=== PATIENT | female | born 1950 | race Caucasian/White ===

== ENCOUNTER → 2017-11-16 08:24 | Outpatient (CLI) | payer BC, SELFPAY ==
[2017-11-16 10:25] LABS: AST(SGOT) 19 U/L (15-37); Alanine Aminotransfer ALT/SGPT 30 U/L (13-56); Albumin, Serum 3.9 g/dL (3.2-5.0); Alkaline Phosphatase 42 U/L (45-117); Anion Gap 10 (5-15); BUN 16 mg/dL (7-18); BUN/Creat Ratio 19.2 RATIO (10-20); Bilirubin, Direct 0.15 mg/dL (0.00-0.30); Calcium,Total 9.4 mg/dL (8.5-10.1); Chloride 108 mmol/L (98-107); Cholesterol 158 mg/dL (200); Creatinine, Serum 0.83 mg/dL (0.55-1.02); EST Glomerular Filtration Rate 72 mL/min (>60); Est Glom Filt Rate - Afr Amer 87 mL/min (>60); Globulin 3.3 g/dL (2.2-4.2); Glucose 101 mg/dL (74-106); High Density Lipoprotein 54 mg/dL; Protein, Total 7.2 g/dL (6.4-8.2); Sodium Level 144 mmol/L (136-145); Triglycerides 123 mg/dL; Very Low Density Lipoprotein 25 mg/dL (5-40)
[2017-11-16 10:27] LABS: Hemoglobin A1c 5.5 % (4.2-6.3)
== END ==
PROVIDERS: Family Provider Family Medicine; PCP Family Medicine; Visit Provider Family Medicine
DX: I10 Essential (primary) hypertension (principal); E78.00 Pure hypercholesterolemia, unspecified; R73.03 Prediabetes
CPT/HCPCS: 36415; 80048; 80061; 80076; 83036

== ENCOUNTER → 2018-01-12 11:37 | Outpatient (CLI) | payer BC, SELFPAY ==
--- NOTE | 2018-01-12 11:41 | RAD_ITS ---
STUDY: X-RAY - RIGHT SHOULDER REASON FOR EXAM: Female, 67 years old. Pain TECHNIQUE: 4 view(s) of the shoulder. COMPARISON: None. FINDINGS: Normal glenohumeral articulation. Normal acromioclavicular joint. Normal acromion. Normal humeral head and visualized proximal humerus. The soft tissue structures are unremarkable. Normal visualized pulmonary apex. RAD/Shoulder min 2 Views IMPRESSION: Normal x-ray examination of the shoulder. Electronically Signed: Guillermo Martinez DO at 9:39 EDT Tel [phone], Service support ,
== END ==
PROVIDERS: Family Provider Family Medicine; PCP Family Medicine; Referring Provider Family Medicine; Visit Provider Family Medicine
DX: M25.511 Pain in right shoulder (principal)
CPT/HCPCS: 73030

== ENCOUNTER 2018-02-03 10:07 | Emergency (ER) | payer BC, SELFPAY ==
[2018-02-03 10:08] VITALS: BP 128/76; PULSE 65; RESP 18; TEMP 36.4; O2SAT 98; BMI 28.1
--- NOTE | 2018-02-03 10:18 | CT_ITS ---
STUDY: CTA CHEST REASON FOR EXAM: Female, 67 years old. Chest pain RADIATION DOSAGE (If Supplied By Facility): CTDIvol = ( 12.6 ) mGy, DLP = ( 502.07 ) mGycm TECHNIQUE: The examination was performed with the intravenous administration of 75 ml of Isovue 370 contrast material. Post-processing of the angiographic images was performed, with multiplanar reformation and 3D reconstruction. Individualized dose optimization techniques were used for this CT. COMPARISON: None. FINDINGS: There are segmental and subsegmental pulmonary emboli in the left lower lobe and subsegmental pulmonary emboli in the right lower lobe. There are no additional pulmonary emboli. There is no evidence of thoracic aortic aneurysm or dissection. The heart and pericardium are within normal limits. There is wedge shaped groundglass opacity in the left lower lobe in the distribution of the pulmonary emboli. This likely represents a developing infarct. The lungs are otherwise clear. There is no pneumothorax. Images through the upper abdomen demonstrate no significant abnormality. There is an IVC filter noted which is not fully visualized on this exam. There are no destructive osseous lesions. CT/CTA Chest W/WO Contrast IMPRESSION: Segmental and subsegmental pulmonary emboli in the left lower lobe and subsegmental pulmonary emboli in the right lower lobe. Wedge shaped groundglass opacity in the left lower lobe in the distribution of the pulmonary emboli. This likely represents a developing infarct. IVC filter noted which is not fully visualized on this exam. N.B. : The above information has been verbally conveyed by Ross Scott to Dr. Ariella MD, on 02/03/2018 11:47:01 (ET). Electronically Signed: Ross Scott, at 11:44 EDT Tel , Service support ,
[2018-02-03 10:48] LABS: Absolute Lymphocyte Count 1.04 X10^3/ul (0.83-4.51); Absolute Neutrophil Count 5.6 X10^3/uL (2.0-7.7); Basophil# 0.02 X10^3/uL; Basophil% 0.3 % (0-1); Eosinophil# 0.03 X10^3/uL; Eosinophils% 0.4 % (0-5); Hematocrit 43.8 % (37-47); Hemoglobin 14.6 g/dl (12.0-15.0); Lymphocyte # 1.04 X10^3/ul (4.0); Mean Corp Hgb Conc 33.3 g/gl (32-36); Mean Corpuscular Hgb 31.1 pg (27.0-32.0); Mean Corpuscular Volume 93.2 fL (81-99); Mean Platelet Vol. 10.1 fl (6.2-12.0); Monocyte# 0.78 X10^3/uL; Monocyte% 10.5 % (0-10); Neutrophil # 5.56 X10^3/uL (2.7-7.7); Neutrophil % 74.7 % (47-70); Platelet Count 231 K/mm3 (150-450); RBC Distribution Width CV 12.5 % (11.6-14.6); RBC Distribution Width SD 42.1 fl (35.1-43.9); White Blood Count 7.4 K/mm3 (4.4-11.0)
[2018-02-03 10:50] LABS: POSITIVE COUNT NO; POSITIVE DIFFERENTIAL NO; POSITIVE MORPHOLOGY NO
[2018-02-03 10:53] LABS: Anion Gap 9 (5-15); BUN 14 mg/dL (7-18); BUN/Creat Ratio 15.1 RATIO (10-20); Calcium,Total 9.6 mg/dL (8.5-10.1); Chloride 100 mmol/L (98-107); Creatinine, Serum 0.93 mg/dL (0.55-1.02); EST Glomerular Filtration Rate 64 mL/min (>60); Est Glom Filt Rate - Afr Amer 77 mL/min (>60); Glucose 99 mg/dL (74-106); Potassium 3.8 mmol/L (3.5-5.1); Sodium Level 138 mmol/L (136-145)
--- NOTE | 2018-02-03 12:32 | ED.VISSUMM ---
- ER Visit Summary Date of Service: 02/03/18 Chief Complaint: [Left chest/rib pain] History of Present Illness: The patient is a 67 F [presents to the emergency department 2-day history of pleuritic left-sided chest/back discomfort. Patient denies any trauma. Patient states she has a hard time laying on that side secondary to pain. Patient sometimes feels like she has the cough due to the pain. She has had no fever. Cough is been nonproductive. Patient denies recent travel or surgery. Patient does have a remote history of DVT more than 10 years ago related to an ovarian cancer. Patient does have a [place] filter in place.] Physical Examination: [HEENT-PERRLA, EOMI. Cranial nerves II through XII grossly intact. TMs clear. Mucous membranes moist. No adenopathy. Cardiovascular-regular rate and rhythm without murmur or ectopy Lungs-clear to auscultation, chest wall stable without crepitus or subcu emphysema Abdomen-normoactive bowel sounds, soft, nontender, no rebound or rigidity, no peritoneal signs. Extremities-intact ?4, normal range of motion, normal pulses, atraumatic] Test Results: CBC with differential was normal. Chemistries unremarkable.] CT scan of the chest obtained showed bilateral pulmonary emboli with subsegmental and segmental clot noted on the left. Patient also with his wedge deformity on the left consistent with pulmonary infarct. Emergency Department Course and Treatment: [Case was discussed with Dr. Arreaga who is on-call for pulmonology. Given that patient is not requiring any oxygen and has normal vital signs he felt he could follow up patient as an outpatient. Patient is in agreement with this. Patient was started on Eliquis in the department and a hypercoagulable profile was sent.] Treatment Plan: [Patient will be started on Eliquis and [place] for pain. Patient to follow-up with Dr. Arreaga of pulmonology next week. Patient advised to return if worsening pain, increasing shortness of breath, hemoptysis, or condition should worsen anyway. Patient was advised on returning the ER if any bleeding issues or if she should have a head injury or blood from her stool or urine.] Disposition: [Discharged home in stable condition ] Impression: [Bilateral pulmonary emboli Left pulmonary infarct ] This note was generated with [employer] software. It may contain incorrect words, spelling, and punctuation that were not noted in review of the chart prior to signing ED Disposition - Plan for ED Patient: Chief Complaint: Chest Other Referrals: Luis A Nino MD [Primary Care Provider] -
--- NOTE | 2018-02-03 12:35 | ED.DCSUM_ITS ---
- ER Visit Summary Date of Service: 02/03/18 Chief Complaint: [Left chest/rib pain] History of Present Illness: The patient is a 67 F [presents to the emergency department 2-day history of pleuritic left-sided chest/back discomfort. Patient denies any trauma. Patient states she has a hard time laying on that side secondary to pain. Patient sometimes feels like she has the cough due to the pain. She has had no fever. Cough is been nonproductive. Patient denies recent travel or surgery. Patient does have a remote history of DVT more than 10 years ago related to an ovarian cancer. Patient does have a [place] filter in place.] Physical Examination: [HEENT-PERRLA, EOMI. Cranial nerves II through XII grossly intact. TMs clear. Mucous membranes moist. No adenopathy. Cardiovascular-regular rate and rhythm without murmur or ectopy Lungs-clear to auscultation, chest wall stable without crepitus or subcu emphysema Abdomen-normoactive bowel sounds, soft, nontender, no rebound or rigidity, no peritoneal signs. Extremities-intact ?4, normal range of motion, normal pulses, atraumatic] Test Results: CBC with differential was normal. Chemistries unremarkable.] CT scan of the chest obtained showed bilateral pulmonary emboli with subsegment al and segmental clot noted on the left. Patient also with his wedge deformity on the left consistent with pulmonary infarct. Emergency Department Course and Treatment: [Case was discussed with Dr. Arreaga who is on-call for pulmonology. Given that patient is not requiring any oxygen and has normal vital signs he felt he could follow up patient as an outpatient. Patient is in agreement with this. Patient was started on Eliquis in the department and a hypercoagulable profile was sent.] Treatment Plan: [Patient will be started on Eliquis and [place] for pain. Patient to follow-up with Dr. Arreaga of pulmonology next week. Patient advised to return if worsening pain, increasing shortness of breath, hemoptysis, or condition should worsen anyway. Patient was advised on returning the ER if any bleeding issues or if she should have a head injury or blood from her stool or urine.] Disposition: [Discharged home in stable condition ] Impression: [Bilateral pulmonary emboli Left pulmonary infarct ] This note was generated with Fan[employer] software. It may contain incorrect words, spelling, and punctuation that were not noted in review of the chart prior to signing ED Disposition - Plan for ED Patient: Chief Complaint: Chest Other Referrals: Luis A Nino MD [Primary Care Provider] -
--- NOTE | 2018-02-03 12:35 | ED.DEP ---
ED Disposition - Plan for ED Patient: Chief Complaint: Chest Other Prescriptions: Hydrocodone Bitart/Apap 5-325 [[place] 5MG-325MG] 1 tab PO Q4H PRN PRN 2 Days #10 tab PRN Reason: Pain Apixaban [Eliquis] 5 mg PO BID #74 tab Referrals: Luis A Nino MD [Primary Care Provider] - Cliff Arreaga DO [STAFF PHYSICIAN] - 3-5 Days
--- NOTE | 2018-02-03 12:38 | DCINST.ED_ITS ---
ED Disposition - Plan for ED Patient: Chief Complaint: Chest Other Prescriptions: Hydrocodone Bitart/Apap 5-325 [[place] 5MG-325MG] 1 tab PO Q4H PRN PRN 2 Days #10 tab PRN Reason: Pain Apixaban [Eliquis] 5 mg PO BID #74 tab Referrals: Luis A Nino MD [Primary Care Provider] - Cliff Arreaga DO [STAFF PHYSICIAN] - 3-5 Days
[2018-02-03] MEDS: APIXABAN 5 MG TABLET 10 MG PO (12:59)
[2018-02-03 13:02] VITALS: PULSE 78; RESP 14; O2SAT 98
[2018-02-08 20:07] LABS: Dilute Russell Viper Venom 42.2 sec (0.0-47.0); PTT-LA 33.3 sec (0.0-51.9); Thrombin Time 13.9 sec (0.0-23.0); dPT Confirm Ratio 1.07 Ratio (0.00-1.40)
[2018-02-09 12:31] LABS: Anti-Cardiolipin Ab, IgG, Qn < 9 GPL U/mL (0-14); Anti-Cardiolipin Ab, IgM, Qn 17 MPL U/mL (0-12); Antithrombin 3 Function 124 % (75-135); Protein C Antigen 110 % (60-150); Protein S, Free 67 % (57-157); Protein S, Total 100 % (60-150)
[2018-02-09 12:32] LABS: Beta-2-Glycoprotein I IgA <9 (0-25); Beta-2-Glycoprotein I IgG <9 (0-20); Beta-2-Glycoprotein I IgM <9 (0-32); Interpretation Comment: (.)
== END 2018-02-03 13:04 | disposition home or self-care (01) ==
LOC: ED 10:25
PROVIDERS: Emergency Provider Emergency Medicine; Family Provider Family Medicine; PCP Family Medicine
DX: I26.99 Other pulmonary embolism without acute cor pulmonale (principal); I10 Essential (primary) hypertension; Z86.718 Personal history of other venous thrombosis and embolism; Z85.43 Personal history of malignant neoplasm of ovary; Z79.899 Other long term (current) drug therapy
CPT/HCPCS: 36415; 71275; 80048; 81240; 81241; 85025; 85300; 85302; 85305; 85306; 86146; 86147; 99283; Q9967; A4216

== ENCOUNTER → 2018-03-08 07:16 | Outpatient (CLI) | payer BC, SELFPAY ==
[2018-02-15 06:44] VITALS: BMI 28.3
--- NOTE | 2018-03-08 11:13 | PFTCOMP_ITS ---
COMPLETE PULMONARY FUNCTION TEST INTERPRETATION Brief HPI: Patient is a 67 year old female, currently under the care of myself, who presents to [facility] for complete pulmonary function tests secondary to diagnosis of pulmonary embolism. Respiratory therapist reports good effort and reproducible results. Interpretation: Forced expiration spirometry shows no large airways obstructive ventilatory defect with an FEV1 of 104% predicted. There is no significant bronchodilator response by strict ATS criteria. Spirograms are of good quality and plateau normally. The respiratory flow volume loop shows a normal pattern. Lung volumes by body plethysmography show a normal total lung capacity at 5.12 L, 106% predicted. All other lung volumes are within normal limits. Diffusion capacity by carbon monoxide is normal at 89% predicted. The airway resistance is normal. No previous pulmonary function tests were available for review. Impression: These pulmonary function tests are within normal limits.
--- OUTSIDE RECORDS SUMMARY | 2018-05-03 07:03 | XMS RPT_ITS ---
:1950 Author Organization [place] Support Name Relationship Address Phone CHARLESRIV Unavailable [address] + [place] [address] JOSE AURELIANO Unavailable [address] + [place] [address] DIMITRY BEAVER Unavailable [address] + [place] [address] [address] + [place] [address] JOSE AURELIANO Unavailable [address] + [place] [address] DIMITRY BEAVER Unavailable [address] + [place] [phone] CHARLESRIV Unavailable [address] + [place] [phone] JOSE AURELIANO Unavailable [address] + [place] [address] DIMITRY BEAVER Unavailable [address] + [place] [phone] CHARLESRIV Unavailable [address] + [place] [address] JOSE AURELIANO Unavailable [address] + [place] [address] DIMITRY BEAVER Unavailable [address] + [place] [phone] CHARLESRIV Unavailable [address] + [place] [address] JOSE AURELIANO Unavailable [address] + [place] [address] DIMITRY BEAVER Unavailable [address] + [place] [phone] CHARLESRIV Unavailable [address] + [place] [address] JOSE, AURELIANO Unavailable [address] + [place] [address] BEAVERMAUREENIE Unavailable [address] + [place] [address] CHAR[address]RIV [address] + [place] [address] JOSE, AURELIANO Unavailable [address] + [place] [address] BEAVERMAUREEN ASHIE Unavailable [address] + [place] [address] CHAR[address]RIV [address] + [place] [address] JOSE, AURELIANO Unavailable [address] + [place] [address] BEAVERMAUREEN ASHIE Unavailable [address] + [place] [address] CHAR[address]RIV [address] + [place] [address] JOSE, AURELIANO Unavailable [address] + [place] [address] MAUREEN BEAVERIE Unavailable [address] + [place] [id number] Care Team Providers Name Role Phone NEELAM DAVIS Attending Unavailable ENELAM DAVIS Referring Unavailable JamesChava neil Attending Unavailable James, Chava Referring Unavailable Nino, Luis A Attending Unavailable Nino, Luis A Primary Care Unavailable Nino, Luis A Attending Unavailable Nino, Luis A Referring Unavailable Nino, Luis A Primary Care Unavailable Rajiv Adams Attending Unavailable Rajiv Adams Referring Unavailable Nino, Luis A Primary Care Unavailable Nino, Luis A Primary Care Unavailable Rafaela Krishnan Attending Unavailable James, Chava Attending Unavailable Nino, Luis A Referring Unavailable James, Chava Attending Unavailable James, Chava Referring Unavailable Nino, Luis A Primary Care Unavailable James, Chava Attending Unavailable James, Chava Referring Unavailable Nino, Luis A Primary Care Unavailable Nino, Luis A Attending Unavailable Nino, Luis A Referring Unavailable Nino, Luis A Primary Care Unavailable PROBLEMS PROBLEMS DATE TYPE CONDITION / CODE ATTENDING STATUS SOURCE 03/13/2018 Unknown S46.011D - El Adams, Active [facility] of muscle(s) and Rajiv Sky tendon(s) of the Hospital rotator cuff of Repository right shoulder, subsequent encounter / S46.011D(ICD-10) 03/23/2018 Unknown I26.99 - Other Chava Ramirez Active [facility] pulmonary [facility] embolism without Hospital acute cor Repository pulmonale / I26.99(ICD-10) 02/03/2018 Unknown R07.9 - Chest UngRafaela neil Active [facility] [place] pain, unspecified Community / R07.9(ICD-10) Hospital Repository 01/12/2018 Unknown M25.511 - Pain in Luis A Nino Active [facility] right shoulder / Community M25.511(ICD-10) Hospital Repository 01/04/2018 Active Unknown / NEELAM DAVIS Active [facility] UNK(Unknown) Main [place] Repository PROCEDURES PROCEDURES No Procedure Records FoundRESULTS RESULTS SCREENING MAMM (CAD), Observed: 03/22/2018 Status: F Source: [place] BILAT 9:[address] [facility] RE[facility] Imaging Services [address] [place] [address] SCREENING MAMM (CAD), BILAT MR#: [id number] Acct: [id number] Name: ANAHI PLATT Rep #: [id number] : 1950 F 67 From: Haseeb Jacobo MD PCP: Luis A Nino MD Status: REG CLI Study: SCREENING MAMM (CAD), BILAT Date of Exam: 03/22/18 Exam# [id number] Ordering Dr: Luis A Nino MD MAMMOGRAPHY - BILATERAL SCREENING REASON FOR EXAM: Female, 67 years old. Routine annual screening examination. PERTINENT HISTORY: Non-contributory. Personal history of ovarian carcinoma. TECHNIQUE: Digital bilateral breast asim (3D mammographic acquisition) in the CC and MLO projections. 2-D mediolateral oblique (MLO) and craniocaudad (CC) views of both breasts were obtained. CAD: Full Field Digital Mammography with Computer Added Detection was performed. COMPARISON: Comparison is made with prior study dated March 16, 2017 and February 26, 2016. FINDINGS: Breast Composition: There are scattered areas of fibroglandular density. There are no dominant masses or suspicious calcifications. No other significant abnormalities are identified. There has been no significant change since the prior study. BI/SCREENING MAMM (CAD), BILAT IMPRESSION: Stable bilateral screening mammogram. Yearly follow-up mammogram recommended. (A) ASSESSMENT CATEGORY: BIRADS Category 1: Negative. A letter regarding these results will be sent to the patient by the facility within 30 days. Approximately 10% of breast cancers are not detected by mammography. A normal mammogram should not delay biopsy of a clinically suspicious abnormality. [id number] Electronically Signed: Haseeb Jacobo MD at 12:39 EST Tel [phone], Service support , CC: Luis A Nino MD Registered Massage Therapist: Signed ECHOCARDIOGRAM COMPLETE Observed: 03/09/2018 Status: F Source: [place] 6:[address] [facility] REPOSITORY [facility] Cardiovascular Services [address] [place] [id number] Echo Complete 03/09/18 0846 MR#: [id number] Acct: [id number] Name: ANAHI PLATT Rep #: [id number] : 1950 67 From: Arvin Perla MD Attending Dr: Chava Ramirez MD Status: REG CLI Ordering Dr: Chava Ramirez MD Date: 03/09/18 Location: [facility] Sex: F C Admitted: Reason For Study: Emboli Procedure This was a 2D Doppler, Color Flow transthoracic echocardiogram. Myocardial strain analysis was performed in this exam to aid in the assessment of cardiac function. The exam was of adequate technical quality. Exam performed in department. Left Ventricle Normal LV size. Left ventricular systolic function is normal. The estimated ejection fraction is 65 %. The global longitudinal strain = -23 % (normal). Diastolic function is indeterminate. No regional wall motion abnormalities noted. Right Ventricle Normal RV size. Normal systolic function. Atria Normal left atrium. Normal right atrium. No doppler evidence for ASD. Mitral Valve There is mild mitral annular calcification. Mild focal mitral valve calcification of the anterior leaflet. Mild (1+) eccentric mitral valve insufficiency. Tricuspid Valve Normal tricuspid valve. Mild tricuspid valve insufficiency. Right ventricular systolic pressure estimated to be 28 mmHg. Aortic Valve Trisinus/trileaflet aortic valve. Mild diffuse aortic valve thickening. Mild focal aortic valve calcification. Aortic sclerosis, no stenosis. Mild (1+) aortic valve insufficiency. Pulmonic Valve The pulmonic valve is not well visualized. Great Vessels Normal sized aortic root. Pericardium/Pleural No pericardial effusion. MMode/2D Measurements AND Calculations LVIDd: 4.0 cm IVSd: 1.1 cm Ao root diam: 3.3 cm LVIDs: 1.8 cm LVPWd: 1.1 cm LA dimension: 4.0 cm RVDd: 2.8 cm FS: 54.5 % LAV(MOD-bp): 40.0 ml LVAd ap4: 21.8 cm2 SV(MOD-sp4): 43.8 ml LAV(MOD-bp) Indexed: 22.1 ml/m2 EDV(MOD-sp4): 58.0 ml LAV(MOD-sp2): 45.8 ml EDV(sp4-el): 59.5 ml LAV(MOD-sp4): 33.4 ml LVAs ap4: 9.4 cm2 ESV(MOD-sp4): 14.1 ml ESV(sp4-el): 14.3 ml EF(MOD-sp4): 75.6 % EF(sp4-el): 75.9 % SV(sp4-el): 45.2 ml LA A4 area: 14.6 cm2 RA A4 area: 12.0 cm2 Doppler Measurements AND Calculations MV E max adrian: 78.5 cm/sec Lat Peak E' Adrian: 10.1 cm/sec Med Peak E' Adrian: 5.2 cm/sec MV A max adrian: 87.2 cm/sec E/E' lat: 7.7 E/E' med: 15.2 MV E/A: 0.90 Ao V2 max: 164.8 cm/sec LV V1 max: 130.6 cm/sec PA V2 max: 106.1 cm/sec Ao max P.9 mmHg LV V1 max P.8 mmHg Ao V2 mean: 100.3 cm/sec Ao mean P.7 mmHg Ao V2 VTI: 29.6 cm TR max adrian: 251.8 cm/sec TR max P.4 mmHg Interpretation Summary Left ventricular systolic function is normal. The estimated ejection fraction is 65 %. The global longitudinal strain = -23 % (normal). There is mild mitral annular calcification. Mild focal mitral valve calcification of the anterior leaflet. Mild (1+) eccentric mitral valve insufficiency. Mild tricuspid valve insufficiency. Aortic sclerosis, no stenosis. Mild (1+) aortic valve insufficiency. Right ventricular systolic pressure estimated to be 28 mmHg. Diastolic function is indeterminate. Ordering Physician: Chava Ramirez Referring Physician: Luis A Nino Performed By: Jeri Segovia, JAMEY, RVT 03/09/181807 Date Arvin Perla MD CC: Chava Ramirez MD; Luis A Nino MD Date Dictated: 03/09/18 0846 Date Transcribed: 03/09/181807 Registered Massage Therapist: Signed PULMONARY FUNCTION Observed: 03/09/2018 Status: F Source: [place] REPORT COMP 5:[address] [facility] REPOSITORY [facility] Pulmonary Services/Neurology [address] [place] [address] MR#: [id number] Acct: [id number] Name: ANAHI PLATT Rep #: [id number] : 1950 67 From: Chava Ramirez MD Referring Dr: Chava Ramirez MD Status: REG CLI Ordering Dr: Date: Location: [facility] Sex: F C COMPLETE PULMONARY FUNCTION TEST INTERPRETATION Brief HPI: Patient is a 67 year old female, currently under the care of myself, who presents to [facility] for complete pulmonary function tests secondary to diagnosis of pulmonary embolism. Respiratory therapist reports good effort and reproducible results. Interpretation: Forced expiration spirometry shows no large airways obstructive ventilatory defect with an FEV1 of 104% predicted. There is no significant bronchodilator response by strict ATS criteria. Spirograms are of good quality and plateau normally. The respiratory flow volume loop shows a normal pattern. Lung volumes by body plethysmography show a normal total lung capacity at 5.12 L, 106% predicted. All other lung volumes are within normal limits. Diffusion capacity by carbon monoxide is normal at 89% predicted. The airway resistance is normal. No previous pulmonary function tests were available for review. Impression: These pulmonary function tests are within normal limits. 03/09/18 0545 <Electronically signed by Chava Ramirez MD> Date Chava Ramirez MD CC: Chava Ramirez MD; Luis A Nino MD Date Dictated: 03/08/181107 Date Transcribed: 03/08/181107 Registered Massage Therapist: HENRIETTA Signed PT D/C SUMMARY (1) Observed: 03/08/2018 Status: F Source: [place] 9:[address] [facility] REPOSITORY [facility] Physical Therapy [facility] [address] [place] [address] Fax REHABILITATION SERVICES DISCHARGE SUMMARY MR#: [id number] Acct: [id number] Name: ANAHI PLATT Rep #: [id number] : 1950 67 From: Funmi Belcher DPT Referring Dr.: Rajiv Adams MD Status: REG RCR Insurance: [employer] INSURANCE HP - PT D/C Summary It has been my pleasure to treat ANAHI PLATT under orders from Rajiv Adams, for the diagnosis of Right Teres Minor Strain and Trap for a total of 6 visit(s). Discharge Date: Please see the following information for a summary of their discharge status. - Subjective Subjective: Patient reports that the pain is better overhead but behind her is still painful. The numbness is back daily when she is sleeping. [place] like it got better but its still right there- can tolerate during the day but its bad during the night. Could she live with it yes but its really bothersone. - Pain R SH Pain Intensity (Out of 10): 3 L rib cage Pain Intensity (Out of 10): 0 - Overall Improvement % Improvement: 50 - Objective Objective/Function: Posture: FH, RS- can correct with verbal cues but does not maintain more than 3 minutes in re-evaluation. Gait: good arm swing and trunk rotation. Palpation: tender along upper trap, biciptal groove, and down to the elbow, tightness throughout cervical paraspinals ROM: finger dexterity: WNL, Elbow: WNL, Shoulder: WNL with pain at end range IR. Cervical: WFL discomfort with SB to the right and rotation to the right. Strength: Scap: fair minus, Student Development Advisor: WNL, Elbow: flexion: 5/5, extn: 4+/5 with discomfort, Shoulder: Flexion- 4/5, extn: 4+/5, abd/add: 4+/5 IR: 4/5 ER:4/5 mild pain with shoulder strength testing. Special Test: Neer: positive, Horne Toney: positive, Empty Can: negative, Cervical Distraction: no change in s/s - Goals Goal 1:: Patient will be I with HEP and progression Goal Progress: Goal Met Goal 2:: Patient will maitain proper posture t/o tx session to demo increased scap s/s. Goal Progress: Progressing Goal 3:: Patient will demo 5/5 strength in UE where deficit Goal Progress: Progressing Goal 4:: Patient will report 0/10 pain for 1 week Goal Progress: Not Progressing Goal 5:: Patient will lift 15# box x10 from floor to waist for work simulation. Goal Progress: Progressing - Plan Plan: Discharge- return to MD for further evaluation. - D/C Information If there are questions or concerns regarding this patient's physical therapy, please feel free to call me at [phone]. Thank you for the referral of this patient. Sincerely, Funmi Belcher <Electronically signed by Funmi Belcher DPT> 03/08/18 0931 CC: Rajiv Adams MD; Luis A Nino MD ELR Signed PULMONARY VISIT REPORT Observed: 02/15/2018 Status: F Source: [place] 12:[address] [facility] REPOSITORY Pulmonary Medicine of [address] [place] [address] OFFICE VISIT Date of Service: 02/15/18 MR#: [id number] Acct: [id number] Name: ANAHI PLATT Rep #: [id number] : 1950 Provider: Chava Ramirez MD Age/Sex: 67/F Location: [facility] Status: Signed Assessment AND Plan Problems 1. 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 Patient has had a history of DVT in the past. Given latest guidelines, patient should be on anticoagulation for the rest of her life. Patient has received routine screening for malignancy. Will obtain an echocardiogram to estimate right-sided pressures. We will also obtain a complete PFT for baseline and to ensure there is not been significant decline in lung volumes following pulmonary infarction. Continue anticoagulation indefinitely. Obtain complete PFT and echo Orders Orders: Medications New: Discontinued: apixaban 10 mg twice a day for the first week. Then 5 mg twic5 mg PO BID 74 tabs 0RF e a day. Discontinued Reason: Order Changed Plan Detail Follow Up 1 Month ([facility]) HPI ER F/U: Chief Complaint: Recent PE Details: Patient is a 67-year-old female, currently under care of Dr. Nino, who presents for evaluation secondary to recent PE and ER visit. Patient reports she was over her usual health except for some lower extremity cramping. Patient had developed acute left-sided chest pain that was pleuritic in nature. Patient presented to the ER and CT scan showed bilateral pulmonary emboli. Patient did not require supplemental oxygen and was discharged on Eliquis therapy. Patient reports resolution of symptoms relatively quickly after initiation of anticoagulation. Patient is no longer having any chest pain. Patient denies any dyspnea on exertion and believes her exercise tolerance is back to baseline. Patient does state that she has tolerated the Eliquis well and has no bleeding complications such as epistaxis, melena, hematochezia or excessive bruising. Patient does report she had a history of DVT in the past when she was diagnosed with ovarian cancer. Patient did have a [place] filter placed at that time, but this is never been removed. Patient does report a history of hypertension, but denies any history of miscarriages or other clotting disorders in the family. Patient does report a history of secondhand smoke exposure, but has never been a smoker herself. 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 Patient does not report exposure to asbestos or TB. Documentation reviewed 5 pages of documentation were reviewed from patient's ER visit on 02/03/2018. At that time, patient had reported left-sided pleuritic type chest pain and CT scan in the ER showed bilateral pulmonary emboli with a wedge deformity consistent with a pulmonary infarct. Patient was initiated on Eliquis therapy and discharged for outpatient follow-up HPI Comments Details: Intake Vital Signs02/15/18 Height 5 ft 4 in 02/15/18 Weight: 74.843 kg Intake Visit Reasons: ER F/U [employer] Required: No Accompanied by: Daughter Is patient in pain?: No Allergies No Known Allergies Allergy (Verified 02/15/18 06:31) Medications Amlodipine [Norvasc] 2.5 mg PO DAILY 02/03/18 [History Confirmed 02/15/18] Carvedilol [Coreg (Beta Sonya)] 3.125 mg PO BID 02/03/18 [History Confirmed 02/15/18] Glucosam/MSM/Chondroit/Vit D3 [Sv Glucosamine Chondroitin Tab] 2 ea PO DAILY 02/03/18 [History Confirmed 02/15/18] Hydrochlorothiazide 12.5 mg pe PO DAILY 02/03/18 [History Confirmed 02/15/18] Ramipril 10 mg PO DAILY 02/03/18 [History Confirmed 02/15/18] Simvastatin [Zocor] 20 mg PO QHS 02/03/18 [History Confirmed 02/15/18] Spironolactone 1 tab PO DAILY 02/03/18 [History Confirmed 02/15/18] Vitamin B Complex/Folic Acid [Super B Maxi Complex Caplet] 0.4 mg PO DAILY 02/03/18 [History Confirmed 02/15/18] apixaban 5 mg tablet 5 mg PO BID #180 tab 02/15/18 [Rx Confirmed 02/15/18] PFSH Medical History Venous thrombosis (Chronic) Malignant neoplasm of ovary (Chronic) Benign hypertension (Chronic) Pulmonary embolism (Acute) H/O: hysterectomy (Resolved) Surgical History ABD ablation (Resolved) H/O bilateral oophorectomy (Resolved) Family History Father Hypertension Heart disease Prostate CA Mother Hypertension Grandmother Goiter Social History household members: children housing: house current occupational status: employed current occupation: [employer] pets and animals: Yes pets and animals: dog(s) Smoking Status: Never smoker second hand exposure: No alcohol intake: never substance use type: does not use Review of Systems Const CONSTITUTIONAL: Negative anorexia, body ache, chills, daytime sleepiness, fever(s), night sweats, oral thrush, stops breathing during sleep, weight loss, sleeping in chair, fatigue, weight loss, weight gain, frequent colds, seasonal allergies, other, headache(s) or orthopnea EETM Ear Nose Throat Mouth: Positive hearing normal; negative hoarseness, dry mouth in morning, change in vision, itchy eyes, eye pain, swallowing Difficulty, ear pain, headache(s), mouth pain, nasal congestion, nasal discharge, sinus pain, sinus pressure, sore throat, other, hard of hearing, nose bleed or post nasal drip Cardio Cardiovascular: Negative chest pain, chest pain at rest, chest pain with activity, irregular heart rhythm, edema, shortness of breath when lying down, palpitations, other or murmur Resp Respiratory: Positive as per HPI; negative shortness of breath, pain with cough, wheezing, chest congestion, cough, chest tightness, pain on inspiration, inhalers, increase use of rescue inhalers, snoring, apnea or other Gastro Gastrointestional: Negative bloody stools, change in appetite, difficulty swallowing, reflux, hematemesis, melena stool, loose stool, constipation or other Genitourinary: Negative blood in urine, nocturia, pain with urination or other Musc Musculoskeletal: Negative body pain, back pain, neck pain or other Skin/Breast Skin/Breast: Negative dry skin, itching, unusual bruising, breast lump, other or rash Neuro Neurological: Negative restless legs, confusion, weakness or other Psych Psychocological: Negative abnormal sleep pattern, anxiety, thoughts of hurting self/others, hopelessness or other Lymph Lymphatic: Negative easy bleeding, easy bruising, other or swollen lymph nodes Exam Const Constitutional: Positive conversant, cooperative, in no acute respiratory distress, healthy appearing, well developed, well nourished and good hygiene; negative wearing supplemental oxygen, appears older than stated age or smells of smoke Head Head: Positive normocephalic and atraumatic; negative cyanosis of lips/distal nose, frontal sinus tenderness or maxillary sinus tenderness Eyes Eye: Positive clear conjunctiva; negative nystagmus, scleral abnormality or cataract present Ears Ear: Positive hearing normal and external ears normal; negative hard of hearing Nose Nose: Positive external nose normal, septum normal and no nasal discharge; negative epistaxis or nasal polyp Mouth Mouth: Positive oral mucosae normal, no lesions, good dentition and posterior oropharynx is adequate; negative post nasal drip, malodorous breath or oral thrush present Mallampati Score: II: Mallampati Score Neck Neck: Positive normal visual inspection, full ROM and trachea midline; negative lymphadenopathy or JVD Chest Wall Chest: Positive normal inspection of the chest and symmetric chest movement; negative crepitus or tenderness Resp lung sounds: Positive clear to auscultation, good air exchange, normal expiratory time and normal respiratory effort; negative wheezes, rhonchi, rales, use of accessory muscles, wheeze present on forced exhalation or dullness to percussion Cardio Cardiac: Positive regular rate, regular rhythm, S1 normal and S2 normal; negative murmur, rub or gallop GI GI: Positive normal to inspection and normal bowel sounds; negative distended, ascites or epigastric tenderness Genitourinary: Positive deferred Musc Musculoskeletal: Positive steady gait; negative using an assistive device for ambulation, kyphosis or scoliosis Skin Pulmonary Skin Exam: Positive intact; negative rash, lesion, ulcers, erythema or dermal atrophy Pulses Pulse: Yes radial pulses present Extremities Extremities: Yes capillary refill normal, No clubbing, No cyanosis, No edema, No stasis dermatitis Neuro Neurologic: Yes conversant, Yes no focal neuro deficits, Yes normal concentration, Yes understands questions, Yes cooperative, Yes normal cognition, Yes normal coordination Lymph Lymphatic: No lymphadenopathy Psych Appearance: Positive grossly normal Mental Status: Positive mental status grossly normal Mood: Positive congruent mood Affect: Positive normal affect Coding Level of Care Code Off vis,new,level 3 Diagnoses 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 RE[facility] Medical Records Department [address] [place] [address] Discharge Instruction 02/03/18 1235 MR#: [id number] Acct: [id number] Name: ANAHI PLATT Eli Rep #: [id number] : 1950 67 From: Rafaela Krishnan DO PCP: Luis A Nino MD Status: REG ER ED Disposition - Plan for ED Patient: Chief Complaint: Chest Other Prescriptions: Hydrocodone Bitart/Apap 5-325 [[place] 5MG-325MG] 1 tab PO Q4H PRN PRN 2 Days #10 tab PRN Reason: Pain Apixaban [Eliquis] 5 mg PO BID #74 tab Referrals: Luis A Nino MD [Primary Care Provider] - Cliff Arreaga DO [STAFF PHYSICIAN] - 3-5 Days What to do if you have Problems For any increased pain, shortness of breath, bleeding, nausea or vomiting, chest pain, or any unexpected problems, contact your Primary Care Provider. Call [facility] ([phone]) or report to the closest Emergency Room. Call 911 if necessary. 02/03/18 1238 <Electronically signed by Rafaela Krishnan DO> Date Rafaela Krishnan DO Cosigner Signature (If Indicated): Date CC: Luis A Nino MD EMERGENCY DEPARTMENT Observed: 02/03/2018 Status: F Source: [place] SUMMARY 12:[address] [facility] REPOSITORY [facility] Medical Records Department [address] [place] [id number] Emergency Department Summary 02/03/18 1232 MR#: [id number] Acct: [id number] Name: ANAHI PLATT Rep #: [id number] : 1950 67 From: Rafaela Krishnan DO PCP: Luis A Nino MD Status: REG ER - ER Visit Summary Date of Service: 02/03/18 Chief Complaint: [Left chest/rib pain] History of Present Illness: The patient is a 67 F [presents to the emergency department 2-day history of pleuritic left-sided chest/back discomfort. Patient denies any trauma. Patient states she has a hard time laying on that side secondary to pain. Patient sometimes feels like she has the cough due to the pain. She has had no fever. Cough is been nonproductive. Patient denies recent travel or surgery. Patient does have a remote history of DVT more than 10 years ago related to an ovarian cancer. Patient does have a [place] filter in place.] Physical Examination: [HEENT-PERRLA, EOMI. Cranial nerves II through XII grossly intact. TMs clear. Mucous membranes moist. No adenopathy. Cardiovascular-regular rate and rhythm without murmur or ectopy Lungs-clear to auscultation, chest wall stable without crepitus or subcu emphysema Abdomen-normoactive bowel sounds, soft, nontender, no rebound or rigidity, no peritoneal signs. Extremities-intact 4, normal range of motion, normal pulses, atraumatic] Test Results: CBC with differential was normal. Chemistries unremarkable.] CT scan of the chest obtained showed bilateral pulmonary emboli with subsegmental and segmental clot noted on the left. Patient also with his wedge deformity on the left consistent with pulmonary infarct. Emergency Department Course and Treatment: [Case was discussed with Dr. Arreaga who is on-call for pulmonology. Given that patient is not requiring any oxygen and has normal vital signs he felt he could follow up patient as an outpatient. Patient is in agreement with this. Patient was started on Eliquis in the department and a hypercoagulable profile was sent.] Treatment Plan: [Patient will be started on Eliquis and [place] for pain. Patient to follow-up with Dr. Arreaga of pulmonology next week. Patient advised to return if worsening pain, increasing shortness of breath, hemoptysis, or condition should worsen anyway. Patient was advised on returning the ER if any bleeding issues or if she should have a head injury or blood from her stool or urine.] Disposition: [Discharged home in stable condition ] Impression: [Bilateral pulmonary emboli Left pulmonary infarct ] This note was generated with [employer] dictation software. It may contain incorrect words, spelling, and punctuation that were not noted in review of the chart prior to signing ED Disposition - Plan for ED Patient: Chief Complaint: Chest Other Referrals: Luis A Nino MD [Primary Care Provider] - What to do if you have Problems For any increased pain, shortness of breath, bleeding, nausea or vomiting, chest pain, or any unexpected problems, contact your Primary Care Provider. Call [facility] ([phone]) or report to the closest Emergency Room. Call 911 if necessary. 02/03/18 1235 <Electronically signed by Rafaela Krishnan DO> Date Rafaela Krishnan DO Cosigner Signature (If Indicated): Date CC: Luis A Nino MD PROTEIN S ANTIGEN Collected: 02/03/2018 Status: F Source: [place] 12:[address] [facility] REPOSITORY TYPE CODE TESTS RESULT OUT OF RANGE REFERENCE UNITS LAB L3100.7100 60-150 % Normal PROTEIN 100 S,TOTAL Result Comment: This test was developed and its performance characteristics determined by [facility]. It has not been cleared or approved by the Food and Drug Administration. LAB L3100.7200 57-157 % Normal PROTEIN S, FREE 67 Result Comment: This test was developed and its performance characteristics determined by [facility]. It has not been cleared or approved by the Food and Drug Administration. Performed By: #### L3100.7050, L3100.7300, L3100.8410, L3300.0500, L3410.2000, L4500.0100, L4500.2000, L4500.5000 #### [facility] (refer to report for specific site) refer to report for address and phone number PROTEIN C ANTIGEN Collected: 02/03/2018 Status: F Source: [place] 12:[address] [facility] REPOSITORY TYPE CODE TESTS RESULT OUT OF RANGE REFERENCE UNITS LAB L3100.7300 60-150 % Normal PROTEIN C 110 Result Comment: Performed at: - [address] [id number] Forest Economist: Ashvin Dubon MD, Phone: [phone] Performed at: CB - [address] [id number] Forest Economist: Nilson Porter PhD, Phone: [phone] Performed at: [facility] [address] [place], [place] [id number] Forest Economist: Daly Shea MD, Phone: [phone] Performed By: #### L3100.7050, L3100.7300, L3100.8410, L3300.0500, L3410.2000, L4500.0100, L4500.2000, L4500.5000 #### [facility] (refer to report for specific site) refer to report for address and phone number ANTICARDIOLIPIN IGG, IGM Collected: 02/03/2018 Status: F Source: [place] 12:[address] [facility] REPOSITORY TYPE CODE TESTS RESULT OUT OF RANGE REFERENCE UNITS LAB L3100.8420 0-14 GPL U/mL Normal ANTICARDIO IgG < 9 Result Comment: Negative: <15 Indeterminate: 15 - 20 Low-Med Positive: >20 - 80 High Positive: >80 LAB L3100.8425 0-12 MPL U/mL ANTICARDIO High IgM 17 Result Comment: Negative: <13 Indeterminate: 13 - 20 Low-Med Positive: >20 - 80 High Positive: >80 Performed By: #### L3100.7050, L3100.7300, L3100.8410, L3300.0500, L3410.2000, L4500.0100, L4500.2000, L4500.5000 #### [facility] (refer to report for specific site) refer to report for address and phone number ANTITHROMBIN 3 FUNCTION Collected: 02/03/2018 Status: F Source: [place] 12:[address] [facility] REPOSITORY TYPE CODE TESTS RESULT OUT OF RANGE REFERENCE UNITS LAB L3300.0500 75-135 % Normal AT3 FUNCTION 124 Result Comment: Direct Xa inhibitor anticoagulants such as rivaroxaban, apixaban and edoxaban will lead to spuriously elevated antithrombin activity levels possibly masking a deficiency. Performed By: #### L3100.7050, L3100.7300, L3100.8410, L3300.0500, L3410.2000, L4500.0100, L4500.2000, L4500.5000 #### [facility] (refer to report for specific site) refer to report for address and phone number BETA-2 GLYCOPROT IGG, Collected: 02/03/2018 Status: F Source: [place] 12:[address] [facility] REPOSITORY TYPE CODE TESTS RESULT OUT OF RANGE REFERENCE UNITS LAB L3410.2100 0-20 Normal B2 GLYCO <9 I IGG Result Comment: Result Units: GPI IgG units The reference interval reflects a 3SD or 99th percentile interval, which is thought to represent a potentially clinically significant result in accordance with the International Consensus Statement on the classification criteria for definitive antiphospholipid syndrome (APS). J Thromb Haem 2006;4:295-306. LAB L3410.2200 0-25 Normal B2 GLYCO I IGA <9 Result Comment: Result Units: GPI IgA units The reference interval reflects a 3SD or 99th percentile interval, which is thought to represent a potentially clinically significant result in accordance with the International Consensus Statement on the classification criteria for definitive antiphospholipid syndrome (APS). J Thromb Haem 2006;4:295-306. LAB L3410.2300 0-32 Normal B2 GLYCO I IGM <9 Result Comment: Result Units: GPI IgM units The reference interval reflects a 3SD or 99th percentile interval, which is thought to represent a potentially clinically significant result in accordance with the International Consensus Statement on the classification criteria for definitive antiphospholipid syndrome (APS). J Thromb Haem 2006;4:295-306. Performed By: #### L3100.7050, L3100.7300, L3100.8410, L3300.0500, L3410.2000, L4500.0100, L4500.2000, L4500.5000 #### [facility] (refer to report for specific site) refer to report for address and phone number LUPUS ANTICOAGULANT COMP Collected: 02/03/2018 Status: F Source: [place] 12:[address] [facility] REPOSITORY TYPE CODE TESTS RESULT OUT OF REFERENCE UNITS RANGE LAB L4500.0125 0.0-55.0 sec DILUTE PT (dPT) Normal 47.0 LAB L4500.0150 0.00-1.40 Ratio dPT Conf. Ratio Normal 1.07 LAB L4500.0200 0.0-23.0 sec THROMBIN TIME Normal 13.9 LAB L4500.0600 0.0-51.9 sec PTT-LA Normal 33.3 LAB L4500.1000 0.0-47.0 sec DRVVT Normal 42.2 LAB L4500.1300 . Interpretation Normal Comment: Result Comment: No lupus anticoagulant was detected. Performed By: #### L3100.7050, L3100.7300, L3100.8410, L3300.0500, L3410.2000, L4500.0100, L4500.2000, L4500.5000 #### [facility] (refer to report for specific site) refer to report for address and phone number FACTOR II, DNA Collected: 02/03/2018 Status: F Source: [place] ANALYSIS 12:[address] [facility] REPOSITORY TYPE CODE TESTS RESULT OUT OF RANGE REFERENCE UNITS LAB L4500.2100 . Normal FACTOR Comment II,DNA Result Comment: NEGATIVE No mutation identified. Comment: A point mutation ([id number]) in the factor II (prothrombin) gene is the second most common cause of inherited thrombophilia. The incidence of this mutation in the [place] population is about 2% and in the population it is approximately 0.5%. This mutation is rare in the and population. Being heterozygous for a prothrombin mutation increases the risk for developing venous thrombosis about 2 to 3 times above the general population risk. Being homozygous for the prothrombin gene mutation increases the relative risk for venous thrombosis further, although it is not yet known how much further the risk is increased. In women heterozygous for the prothrombin gene mutation, the use of estrogen containing oral contraceptives increases the relative risk of venous thrombosis about 16 times and the risk of developing cerebral thrombosis is also significantly increased. In the prothrombin gene mutation increases risk for venous thrombosis and may increase risk for stillbirth, placental abruption, pre-eclampsia and growth restriction. If the patient possesses two or more congenital or acquired thrombophilic risk factors, the risk for thrombosis may rise to more than the sum of the risk ratios for the individual mutations. This assay detects only the prothrombin H21953A mutation and does not measure genetic abnormalities elsewhere in the genome. Other thrombotic risk factors may be pursued through systematic clinical laboratory analysis. These factors include the R506Q (Leiden) mutation in the Factor V gene, plasma homocysteine levels, as well as testing for deficiencies of antithrombin III, protein C and protein S. Genetic Counselors are available for health care providers to discuss results at [phone]). Methodology: DNA analysis of the Factor II gene was performed by PCR amplification followed by restriction analysis. The diagnostic sensitivity is >99% for both. All the tests must be combined with clinical information for the most accurate interpretation. Molecular-based testing is highly accurate, but as in any laboratory test, diagnostic errors may occur. This test was developed and its performance characteristics determined by [facility]. It has not been cleared or approved by the Food and Drug Administration. Poort SR, et al. Blood. 1996; 88:3873-0055. Kortney ACOSTA. Circulation. 2004; 110:e15-e18. Audra I, et al. Arterioscler Thromb Vasc Biol. 1999; 19:700-703. Pb Thorne, PhD, [facility] Marlin Hunter, PhD, [facility] Pam Thornton M.S., PhD, FAC Maryana Lin, PhD, FAC Brigido Braun, PhD, [facility] Scott Jones, PhD, [facility] Performed By: #### L3100.7050, L3100.7300, L3100.8410, L3300.0500, L3410.2000, L4500.0100, L4500.2000, L4500.5000 #### [facility] (refer to report for specific site) refer to report for address and phone number FACT V LEIDEN Collected: 02/03/2018 Status: F Source: [place] MUTATION 12:[address] [facility] REPOSITORY TYPE CODE TESTS RESULT OUT OF RANGE REFERENCE UNITS LAB L4500.5100 . Normal FACTOR V Comment LEIDEN Result Comment: Result: Negative (no mutation found) Factor V Leiden is a specific mutation (R506Q) in the factor V gene that is associated with an increased risk of venous thrombosis. Factor V Leiden is more resistant to inactivation by activated protein C. As a result, factor V persists in the circulation leading to a mild hyper- coagulable state. The Leiden mutation accounts for 90% - 95% of APC resistance. Factor V Leiden has been reported in patients with deep vein thrombosis, pulmonary embolus, central retinal vein occlusion, cerebral sinus thrombosis and hepatic vein thrombosis. Other risk factors to be considered in the workup for venous thrombosis include the Z83127E mutation in the factor II (prothrombin) gene, protein S and C deficiency, and antithrombin deficiencies. Anticardiolipin antibody and lupus anticoagulant analysis may be appropriate for certain patients, as well as homocysteine levels. Contact your local [facility] for information on how to order additional testing if desired. Genetic counselors are available for health care providers to discuss results at [phone]). Methodology: DNA analysis of the Factor V gene was performed by allele- specific PCR. The diagnostic sensitivity and specificity is >99% for both. Molecular-based testing is highly accurate, but as in any laboratory test, diagnostic errors may occur. All test results must be combined with clinical information for the most accurate interpretation. This test was developed and its performance characteristics determined by [facility]. It has not been cleared or approved by the Food and Drug Administration. References: Ridge Gamez (1996). Clin Lab Med 16:169-186. Pb Thorne, PhD, FAC Marlin Hunter, PhD, FAC Arlene PaulinoS., PhD, FAC Maryana Lin, PhD, FAC Brigido Braun, PhD, FAC Scott Jones PhD, FAC Performed By: #### L3100.7050, L3100.7300, L3100.8410, L3300.0500, L3410.2000, L4500.0100, L4500.2000, L4500.5000 #### [facility] (refer to report for specific site) refer to report for address and phone number CBC W/DIFF, AUTOMATED Collected: 02/03/2018 Status: F Source: [place] 10:[address] [facility] REPOSITORY TYPE CODE TESTS RESULT OUT OF RANGE REFERENCE UNITS LAB L100.1000 4.4-11.0 K/mm3 Normal WBC 7.4 LAB L100.1200 4.2-5.4 M/mm3 Normal RBC 4.70 LAB L100.1300 12.0-15.0 g/dl Normal HGB 14.6 LAB L100.1400 37-47 % Normal HCT 43.8 LAB L100.1500 81-99 fL Normal MCV 93.2 LAB L100.1600 27.0-32.0 pg Normal MCH 31.1 LAB L100.1700 32-36 g/gl Normal MCHC 33.3 LAB L100.1810 11.6-14.6 % Normal RDW CV 12.5 LAB L100.1820 35.1-43.9 fl Normal RDW SD 42.1 LAB L100.1900 150-450 K/mm3 Normal PLT 231 LAB L100.2000 6.2-12.0 fl Normal MPV 10.1 LAB L100.2100 47-70 % High NEUT% 74.7 LAB L100.2200 19-41 % Low LY% 14.0 LAB L100.2300 0-10 % High MONO% 10.5 LAB L100.2400 0-5 % Normal EO% 0.4 LAB L100.2500 0-1 % Normal BASO% 0.3 LAB L100.2550 0.0-0.9 % Normal IM GRAN % 0.100 Result Comment: IG% - Immature Granulocytes (promyelocytes, myelocytes and metamyelocytes) > 1% indicates that a LEFT SHIFT is Present. LAB L100.2620 2.0-7.7 X10 3/uL Normal Absolute Neut 5.6 LAB L100.2720 0.83-4.51 X10 3/ul Normal Absolute Lymph 1.04 Performed By: #### L100.0100 #### [facility] [address] [place], [place], [address] BASIC METABOLIC Collected: 02/03/2018 Status: F Source: [place] PROFILE (BMP) 10:[address] [facility] REPOSITORY TYPE CODE TESTS RESULT OUT OF RANGE REFERENCE UNITS LAB L501.0100 74-106 mg/dL Normal GLU 99 Result Comment: Please note revised GLUCOSE reference range effective 2017. LAB L501.1000 7-18 mg/dL Normal BUN 14 LAB L501.1100 0.55-1.02 mg/dL Normal CREAT,SERUM 0.93 Result Comment: The validity of the calculated GFR AND GFRAA in patients over 70 years has not been determined. Clinical correlation is essential. LAB L501.1110 >60 mL/min Normal EST GFR 64 Result Comment: Non- GFR Calc LAB L501.1115 >60 mL/min Normal EST GFR - AA 77 Result Comment: GFR Calc LAB L501.1255 ml/min Normal Estimated CRCL 49.30 LAB L501.1300 10-20 RATIO Normal BUN/CRE 15.1 LAB L501.2200 8.5-10 mg/dL Normal .1 CA 9.6 LAB L501.5300 136-14 mmol/L Normal 5 NA 138 LAB L501.5600 3.5-5. mmol/L Normal 1 K 3.8 LAB L501.5900 98-107 mmol/L Normal CL 100 LAB L501.6100 21.0-3 mmol/L Normal 2.0 CO2 29.0 LAB L501.6200 5-15 Normal GAP 9 Performed By: #### L500.2500 #### [facility] [address] [place], [address] CTA CHEST W/WO Observed: 02/03/2018 Status: F Source: [place] CONTRAST 10:[address] [facility] REPOSITORY [facility] [address] [place] [address] CTA Chest W/WO Contrast MR#: [id number] Acct: [id number] Name: ANAHI PLATT Rep #: [id number] : 1950 F 67 From: Ross Scott MD PCP: Luis A Nino MD Status: REG ER Study: CTA Chest W/WO Contrast Date of Exam: 02/03/18 Exam# [id number] Ordering Dr: Rafaela Krishnan DO STUDY: CTA CHEST REASON FOR EXAM: Female, 67 years old. Chest pain RADIATION DOSAGE (If Supplied By Facility): CTDIvol = ( 12.6 ) mGy, DLP = ( 502.07 ) mGycm TECHNIQUE: The examination was performed with the intravenous administration of 75 ml of Isovue 370 contrast material. Post-processing of the angiographic images was performed, with multiplanar reformation and 3D reconstruction. Individualized dose optimization techniques were used for this CT. COMPARISON: None. FINDINGS: There are segmental and subsegmental pulmonary emboli in the left lower lobe and subsegmental pulmonary emboli in the right lower lobe. There are no additional pulmonary emboli. There is no evidence of thoracic aortic aneurysm or dissection. The heart and pericardium are within normal limits. There is wedge shaped groundglass opacity in the left lower lobe in the distribution of the pulmonary emboli. This likely represents a developing infarct. The lungs are otherwise clear. There is no pneumothorax. Images through the upper abdomen demonstrate no significant abnormality. There is an IVC filter noted which is not fully visualized on this exam. There are no destructive osseous lesions. CT/CTA Chest W/WO Contrast IMPRESSION: Segmental and subsegmental pulmonary emboli in the left lower lobe and subsegmental pulmonary emboli in the right lower lobe. Wedge shaped groundglass opacity in the left lower lobe in the distribution of the pulmonary emboli. This likely represents a developing infarct. IVC filter noted which is not fully visualized on this exam. N.B. : The above information has been verbally conveyed by Ross Scott to Dr. Ariella MD, on 02/03/2018 11:47:01 (ET). Electronically Signed: Ross Scott, at 11:44 EDT Tel , Service support , CC: Luis A Nino MD; Rafaela Krishnan DO Registered Massage Therapist: Signed INITAL EVALUATION (1) Observed: 02/01/2018 Status: F Source: [place] - 10:[address] [facility] REPOSITORY [facility] [address] [place] [address]. [address] [place] [address] Fax REHABILITATION SERVICES INITIAL EVALUATION MR#: [id number] Acct: [id number] Name: ANAHI PLATT Rep #: [id number] : 1950 67 From: Funmi Belcher DPT Referring Dr.: Rajiv Adams MD Status: REG RCR Insurance: ANTH S[employer] PAY INSURANCE Patient's Visit Information ANAHI PLATT is a 67 year old F referred to Physical Therapy by Rajiv Adams with a diagnosis of Right Teres Minor Strain and Trap. Date of Evaluation: 02/01/18 Physical Therapist: Funmi Belcher - Visit Plan Frequency: 2x /Week Duration: 4 Weeks Plan: Focus on scap s/s- lifting mechanics. - Subjective Subjective: Patient reports that she has numbness on the right at night. Dr. Nino gave her prednisone for 3 weeks and now its better. The right shoulder is now bothering her for about 6 months. Agg:night time, throwing dog toys, lifting it certain ways. Worst: 9/10 sharp shooting- Most of the time its a dully achy 5/10. Best: /10. Pain is in the shoulder with radiating pain into the neck- can feel it down to the elbow. No issues with finger dexterity or radiographer strength. No increase in [place], blurred vision or dizziness. Sleep: disturbed- side sleeper and can lay on it if she gets it positioned just right. 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 When she reposotions the arm the pain goes away. The joint feel ezra. Right hand dominate. Notices the neck pain when its at end range and turning to the right. PCP did shoulder x-ray- negative- no s/s of arthritis. No injection- finished the Predisone-last Monday was the last day. PMHx: 11 years ago ovarian cancer- remission since then, HTN. Meds: HCTz, aldactone, ramapril, spironlactone, corig. Jefferson Chi- 1x a week but has stopped due to the discomfort. - Objective Posture: FH, RS- can correct with verbal cues but does not maintain. Gait: good arm swing and trunk rotation. Palpation: tender along upper trap, biciptal groove, and down to the elbow, tightness throughout cervical paraspinals- mild discomfort with suboccipital release. ROM: finger dexterity: WNL, Elbow: WNL, Shoulder: WNL with pain at end range flexion, abduction, IR. Cervical: WFL discomfort with SB to the right and rotation to the right. Strength: Scap: fair minus, Student Development Advisor: WNL, Elbow: flexion: 4+/5 with discomfort, extn: 4/5 with discomfort, Shoulder: Flexion- 4-/5, extn: 4/5, abd/add: 4/5 IR: 4/5 ER:4-/5 significant pain with shoulder strength testing. Special Test: Neer: positive, Horne Toney: positive, Empty Can: negative, Cervical Distraction: no change in s/s - Goals Goal 1:: Patient will be I with HEP and progression Goal Time Frame: 4-6 Weeks Goal 2:: Patient will maitain proper posture t/o tx session to demo increased scap s/s. Goal Time Frame: 4-6 Weeks Goal 3:: Patient will demo 5/5 strength in UE where deficit Goal Time Frame: 4-6 Weeks Goal 4:: Patient will report 0/10 pain for 1 week Goal Time Frame: 4-6 Weeks Goal 5:: Patient will lift 15# box x10 from floor to waist for work simulation. Goal Time Frame: 4-6 Weeks - Rehabilitation Potential Physical Therapy Diagnosis: Patient presents with hypomobility- she has decreased ROM, strength and muscular endurance leading to poor posture and increased pain with ADL's Rehabilitation Potential: Fair - Anticipated Interventions Patient/Client Instruction: Educate patient on: Benefits of Fitness Program Therapeutic Exercise to Include: Strength training, Endurance training, Body mechanics, Postural training, Flexibilty training, Passive ROM, Active ROM, Scapular Strength/Stabilization For the Purpose of:: To improve muscle performance and motor function TENS: Yes Cryotherapy (ice pack, ice massage): Yes Thermo therapy (hot pack): Yes Ultrasound (thermal/non thermal): Yes Thank you for the opportunity to evaluate your patient. For Medicare and Medicare HMO plans, please review the plan of care and approve it. It will need to be FAXED BACK to us at [phone] for Medicare purposes. Please let me know if there are questions or concerns regarding this plan of care. Physician Signature: Date: <Electronically signed by Funmi Belcher DPT> 02/01/18 1059 CC: Rajiv Adams MD; Luis A Nino MD ELR Signed For Medicare only, by signing this I certify the plan of care. Physicians Signature Date SHOULDER MIN 2 VIEWS Observed: 01/12/2018 Status: F Source: [place] 11:[address] [facility] REPOSITORY [facility] Imaging Services [address] [place], [place] [address] [address] Shoulder min 2 Views MR#: [id number] Acct: [id number] Name: ANAHI PLATT Rep #: [id number] : 1950 F 67 From: Guillermo Martinez DO PCP: Luis A Nino MD Status: REG CLI Study: Shoulder min 2 Views Date of Exam: 01/12/18 Exam# [id number] Ordering Dr: Luis A Nino MD STUDY: X-RAY - RIGHT SHOULDER REASON FOR EXAM: Female, 67 years old. Pain TECHNIQUE: 4 view(s) of the shoulder. COMPARISON: None. FINDINGS: Normal glenohumeral articulation. Normal acromioclavicular joint. Normal acromion. Normal humeral head and visualized proximal humerus. The soft tissue structures are unremarkable. Normal visualized pulmonary apex. RAD/Shoulder min 2 Views IMPRESSION: Normal x-ray examination of the shoulder. Electronically Signed: Guillermo Martinez DO at 9:39 EDT Tel [phone], Service support , CC: Luis A Nino MD Registered Massage Therapist: Signed CNNURSE Observed: 01/04/2018 Status: COMPLETED Source: [place] 10:45 AM [facility] REPOSITORY Nurse Visit (CAWSTR) ANAHI PLATT ([id number]) 1950 F Date Time Provider Department 01/04/18 10:45 AM NURSE CARD ADMIN [facility] During your visit today, we recorded the following information about you: Marlin Thomas MA 01/08/2018 10:00 AM Signed EKG completed and given to Dr Davis for review. Marlin Thomas MA Referring Provider: NEELAM DAVIS [[id number]] Allergies As of Date: 01/04/2018 Noted Allergy Reaction NORVASC (AMLODIPINE BESYLATE) 08/17/2010 14 - Other: See Comments Comments: edema Date Reviewed: 01/04/2018 Reviewed by: Marlin Thomas MA - Fully Assessed Reason for Visit: Allied Health Visit [5] Visit Diagnosis:Hypertension, essential [I10] Prescriptions as of 01/04/2018 Sig: AMLODIPINE 2.5 MG TABLET Take 1 tablet by mouth once d* SPIRONOLACTONE 25 MG TABLET TAKE 1 TABLET DAILY RAMIPRIL 10 MG CAPSULE TAKE 1 CAPSULE DAILY SIMVASTATIN 20 MG TABLET TAKE 1 TABLET DAILY AT BEDTIME CARVEDILOL 3.125 MG TABLET Take 1 tablet by mouth twice * HYDROCHLOROTHIAZIDE 12.5 MG C* TAKE 1 CAPSULE DAILY * GLUCOSAMINE VYGAOOWUWJVU-IT-SPY* Take 1 tablet by mouth once d* * B VWHHZFC-XMA-MJ COMB3-AO CB4* Take 1 tablet by mouth once d* * MULTI-VITAMIN ORAL Take 1 tablet by mouth once d* Problem List As Of Date 01/04/2018 Noted Resolved HTN (hypertension) [I10] INVALID FOR* Blood in stool [K92.1] INVALID FOR*02/06/2015 Visit Notes: >> Marlin Thomas MA Mon Jan 08, 2018 9:59 AM Status: Signed EKG completed and given to Dr Davis for review. Marlin Thomas MA Encounter Status:Closed by MARLIN THOMAS MA on 01/08/18 PROGRESS Observed: 01/04/2018 Status: COMPLETED Source: [place] 10:08 AM [facility] REPOSITORY HNO ID: [id number] Author: Neelam Davis Service: (none) Author Type: Physician Type: Progress Notes Filed: 01/04/2018 6:08 PM Note Text: PERTINENT CARDIAC HISTORY HTN - essential HL ADHERENCE TO GUIDELINES MAURO-I or ARB for HF with prior LVEF<40 (NQF 0081) - N/A ASA or Plavix for ASHD (NQF 0067) - N/A Beta sonya for ASHD with prior LA or prior LVEF<40 (NQF 0070) - N/A Beta sonya for HF with prior LVEF<40 (NQ 0083) - N/A MAURO-I or ARB for ASHD with DM or prior LVEF<40 (NQ 0066) - N/A Statin therapy for ASHD or FHL or DM - met BMI documented and plan if >25 ([facility] 0421) - lifestyle recommendation form Tobacco use screening and referral ([facility] 0028) - lifestyle recommendation form Recommendation for whole food, plant based diet - lifestyle recommendation form CLINICAL IMPRESSION/PLAN: Anahi Platt is doing well. Blood pressure is still not quite well-controlled. She has been advised to try amlodipine 2.5 milligrams daily and contact me in one to 2 weeks. She had some edema with this before, but is now on diuretic therapy. We will consider stress testing if exercise tolerance does not continue to improve. She has been advised to seek assistance for her shoulder pain in primary care. We will ask for copies of her recent laboratory studies from Dr. Nino. I recommended that she be seen in cardiology again in 12 months. Written and verbal health teaching given to patient, patient verbalizes understanding and agrees with treatment plan. DIAGNOSIS FOR VISIT: Hypertension HISTORY OF PRESENT ILLNESS Anahi Platt returns for follow-up of her hypertension. She has had some right shoulder discomfort which is exacerbated by lifting and pushing and by range of motion. This is nonexertional. She has had no exertional chest tightness. Her shortness of breath has improved since her carvedilol was decreased. Blood pressure has been in the 140 systolic range. She's had no edema, syncope, palpitations, TIAs, amaurosis. ALLERGIES: ALLERGIES Allergen Reactions - Norvasc [Amlodipine* Other: See Comments edema CURRENT OUTPATIENT MEDICATIONS: spironolactone (ALDACTONE) 25 mg tablet TAKE 1 TABLET DAILY ramipril (ALTACE) 10 mg capsule TAKE 1 CAPSULE DAILY simvastatin (ZOCOR) 20 mg tablet TAKE 1 TABLET DAILY AT BEDTIME carvedilol (COREG) 3.125 mg tablet Take 1 tablet by mouth twice daily. Hydrochlorothiazide 12.5 mg capsule TAKE 1 CAPSULE DAILY GLUCOSAM AND CHONDROIT-MV AND MIN3 (GLUCOSAMINE IPSZGWZEYZLJ-XP-LVF8 ORAL) Take 1 tablet by mouth once daily. AA COMB.NO3/B/MV-AO4/MN/MIN AA (B SMYKDSV-LZD-CS COMB3-AO CB4 ORAL) Take 1 tablet by mouth once daily. MULTI-VITAMIN ORAL Take 1 tablet by mouth once daily. PHYSICAL EXAMINATION: VITAL SIGNS: BP 142/79 Pulse 50 Ht 5' 4 (1.63m) Wt 165 lb 6.4 oz (75.0kg) BMI 28.38 kg/(m2). Chest: Clear to auscultation. Trachea is midline. Air entry is equal. Cardiac: Regular rhythm. S1 and S2 are normal. PMI is nondisplaced. There is a soft systolic ejection murmur and a soft S4 gallop. Carotids are brisk without bruits. JVP is less than 10 cm. Abdomen: Soft and nontender. There are no pulsatile masses or bruits. No liver enlargement. Bowel sounds are active. Extremities: No edema. Pulses are intact and symmetrical. There is some discomfort on range of motion of her right shoulder. EKG shows sinus bradycardia and minor repolarization change. There is no change since 12/08/16. Electronically Signed: Neelam Davis MD January 04, 2018 10:08 AM CC: Luis A Nino MD EKG1 Observed: 01/04/2018 Status: F Source: [place] 9:46 AM [facility] REPOSITORY NAME : ANAHI PLATT PID : [id number] : 1950 Gender : Female Race : ORD : Procedure Date : Jan 04 2018 09:46:23 Edit Date : Jan 05 2018 10:41:43 Diagnosis:SINUS BRADYCARDIA NON-SPECIFIC ST AND T WAVE CHANGES BORDERLINE ECG NO SIGNIFICANT CHANGE FROM PREVIOUS ECG Confirmed by NEELAM DAVIS MD ([id number]) on 01/05/2018 10:41:39 AM Ventricular Rate : 56 BPM Atrial Rate : 56 BPM P-R Interval : 128 ms QRS Duration : 74 ms Q-T Interval : 386 ms QTC Calculation(Bezet) : 372 ms P [place] : 20 degrees R [place] : 31 degrees T [place] : 45 degrees Test Reason : Location : 136 : [place] Overread By : NEELAM DAVIS MD Edited By : NEELAM DAVIS MD Referred By : RYAN, Acquired by : CASSIDY RAYO Observed: 01/04/2018 Status: COMPLETED Source: [place] 9:45 AM [facility] REPOSITORY Office Visit ([facility]) ANAHI PLATT ([id number]) 1950 F Date Time Provider Department 01/04/18 9:45 AM NEELAM DAVIS During your visit today, we recorded the following information about you: Pulse Blood pressure Weight Height 50/minute 142/79 75 kg 1.626 m Neelam Davis MD 01/04/2018 6:08 PM Signed PERTINENT CARDIAC HISTORY HTN - essential HL ADHERENCE TO GUIDELINES MAURO-I or ARB for HF with prior LVEF<40 (NQF 0081) - N/A ASA or Plavix for ASHD (NQF 0067) - N/A Beta sonya for ASHD with prior LA or prior LVEF<40 (NQF 0070) - N/A Beta sonya for HF with prior LVEF<40 (NQF 0083) - N/A MAURO-I or ARB for ASHD with DM or prior LVEF<40 (NQF 0066) - N/A Statin therapy for ASHD or FHL or DM - met BMI documented and plan if >25 (NQF 0421) - lifestyle recommendation form Tobacco use screening and referral (NQF 0028) - lifestyle recommendation form Recommendation for whole food, plant based diet - lifestyle recommendation form CLINICAL IMPRESSION/PLAN: Anahi Platt is doing well. Blood pressure is still not quite well-controlled. She has been advised to try amlodipine 2.5 milligrams daily and contact me in one to 2 weeks. She had some edema with this before, but is now on diuretic therapy. We will consider stress testing if exercise tolerance does not continue to improve. She has been advised to seek assistance for her shoulder pain in primary care. We will ask for copies of her recent laboratory studies from Dr. Nino. I recommended that she be seen in cardiology again in 12 months. Written and verbal health teaching given to patient, patient verbalizes understanding and agrees with treatment plan. DIAGNOSIS FOR VISIT: Hypertension HISTORY OF PRESENT ILLNESS Anahi Platt returns for follow-up of her hypertension. She has had some right shoulder discomfort which is exacerbated by lifting and pushing and by range of motion. This is nonexertional. She has had no exertional chest tightness. Her shortness of breath has improved since her carvedilol was decreased. Blood pressure has been in the 140 systolic range. She's had no edema, syncope, palpitations, TIAs, amaurosis. ALLERGIES: ALLERGIES Allergen Reactions - Norvasc [Amlodipine* Other: See Comments edema CURRENT OUTPATIENT MEDICATIONS: spironolactone (ALDACTONE) 25 mg tablet TAKE 1 TABLET DAILY ramipril (ALTACE) 10 mg capsule TAKE 1 CAPSULE DAILY simvastatin (ZOCOR) 20 mg tablet TAKE 1 TABLET DAILY AT BEDTIME carvedilol (COREG) 3.125 mg tablet Take 1 tablet by mouth twice daily. Hydrochlorothiazide 12.5 mg capsule TAKE 1 CAPSULE DAILY GLUCOSAM AND CHONDROIT-MV AND MIN3 (GLUCOSAMINE ICFMNAESKNTV-EG-QJS8 ORAL) Take 1 tablet by mouth once daily. AA COMB.NO3/B/MV-AO4/MN/MIN AA (B MRRADPJ-PPH-VG COMB3-AO CB4 ORAL) Take 1 tablet by mouth once daily. MULTI-VITAMIN ORAL Take 1 tablet by mouth once daily. PHYSICAL EXAMINATION: VITAL SIGNS: BP 142/79 Pulse 50 Ht 5' 4 (1.63m) Wt 165 lb 6.4 oz (75.0kg) BMI 28.38 kg/(m2). Chest: Clear to auscultation. Trachea is midline. Air entry is equal. Cardiac: Regular rhythm. S1 and S2 are normal. PMI is nondisplaced. There is a soft systolic ejection murmur and a soft S4 gallop. Carotids are brisk without bruits. JVP is less than 10 cm. Abdomen: Soft and nontender. There are no pulsatile masses or bruits. No liver enlargement. Bowel sounds are active. Extremities: No edema. Pulses are intact and symmetrical. There is some discomfort on range of motion of her right shoulder. EKG shows sinus bradycardia and minor repolarization change. There is no change since 12/08/16. Electronically Signed: Neelam Davis MD January 04, 2018 10:08 AM CC: MD Neelam Ruvalcaba MD 01/04/2018 10:08 AM Signed LIFESTYLE CHANGE A healthy lifestyle is the most important component of your overall treatment plan. Please give serious thought to the following areas and commit to making termite helper changes. EAT A WHOLE FOOD, PLANT BASED DIET The nutrition your body gets is more important than the medicine you take. What matters most is the overall way you eat. We encourage you to minimize the use of animal products (which include dairy and all meats except fatty fish) and use whole, unprocessed plant foods to provide your protein, vitamins and other nutrients. We have a lot of information to share with you on this topic. This is not a diet. It is a way of life that you will keep with you. EXERCISE REGULARLY It is not important to spend hours in the gym, lifting weights and perspiring heavily. A total of 2-3 hours per week of aerobic (causing you to be moderately short of breath) exercise is sufficient to improve your health. Talk to us before you begin a new exercise program, if you have heart disease or experience shortness of breath or chest pain. REDUCE STRESS Chronic emotional and physical stress leads to disease. Ways of reducing stress include meditation, visualization, prayer, yoga and other forms of relaxation therapy. Consistency is the syed. Find a technique that works for you and do it every day. CULTIVATE RELATIONSHIPS Loneliness and isolation have a major negative impact on health. Seek out others who can love, care for and nurture you. Avoid hurtful relationships. MAINTAIN IDEAL BODY WEIGHT The best way to do this is to do all the things above. Our bodies naturally find the right weight if we keep moving and feed ourselves the right food. If your BMI is greater than 25, we strongly recommend a referral to a weight management program. Please speak to us or your family physician about available programs. AVOID NICOTINE IN ALL FORMS This includes all tobacco products, whether chewed, smoked, vaped, or rubbed on the skin. Smoking cessation programs, which can make use of tobacco substitutes, medications to suppress cravings and behavior management, are available. Please contact your family physician about programs in your area. Referring Provider: NEELAM DAVIS [[id number]] Allergies As of Date: 01/04/2018 Noted Allergy Reaction NORVASC (AMLODIPINE BESYLATE) 08/17/2010 14 - Other: See Comments Comments: edema Date Reviewed: 01/04/2018 Reviewed by: Marlin Thomas MA - Fully Assessed Reason for Visit: Established Patient [175] Cmt: HTN Primary Visit Diagnosis:Hypertension, essential [I10] Order(s):ECG COMPLETE W INTERPRETATION [ECG01] Order #: [id number] FUTURE amLODIPine (NORVASC) 2.5 mg tabletTake 1 tablet by mouth once daily.Disp: 30 tabletRfl: 11 Prescriptions as of 01/04/2018 Sig: SPIRONOLACTONE 25 MG TABLET TAKE 1 TABLET DAILY RAMIPRIL 10 MG CAPSULE TAKE 1 CAPSULE DAILY SIMVASTATIN 20 MG TABLET TAKE 1 TABLET DAILY AT BEDTIME CARVEDILOL 3.125 MG TABLET Take 1 tablet by mouth twice * HYDROCHLOROTHIAZIDE 12.5 MG C* TAKE 1 CAPSULE DAILY * GLUCOSAMINE OPEZIUZRKVSW-TV-DGL* Take 1 tablet by mouth once d* * B XIJBDHY-OLV-KD COMB3-AO CB4* Take 1 tablet by mouth once d* * MULTI-VITAMIN ORAL Take 1 tablet by mouth once d* AMLODIPINE 2.5 MG TABLET Take 1 tablet by mouth once d* Problem List As Of Date 01/04/2018 Noted Resolved HTN (hypertension) [I10] INVALID FOR* Blood in stool [K92.1] INVALID FOR*02/06/2015 Other instructions from your clinician: LIFESTYLE CHANGE A healthy lifestyle is the most important component of your overall treatment plan. Please give serious thought to the following areas and commit to making snf changes. EAT A WHOLE FOOD, PLANT BASED DIET The nutrition your body gets is more important than the medicine you take. What matters most is the overall way you eat. We encourage you to minimize the use of animal products (which include dairy and all meats except fatty fish) and use whole, unprocessed plant foods to provide your protein, vitamins and other nutrients. We have a lot of information to share with you on this topic. This is not a diet. It is a way of life that you will keep with you. EXERCISE REGULARLY It is not important to spend hours in the gym, lifting weights and perspiring heavily. A total of 2-3 hours per week of aerobic (causing you to be moderately short of breath) exercise is sufficient to improve your health. Talk to us before you begin a new exercise program, if you have heart disease or experience shortness of breath or chest pain. REDUCE STRESS Chronic emotional and physical stress leads to disease. Ways of reducing stress include meditation, visualization, prayer, yoga and other forms of relaxation therapy. Consistency is the syed. Find a technique that works for you and do it every day. CULTIVATE RELATIONSHIPS Loneliness and isolation have a major negative impact on health. Seek out others who can love, care for and nurture you. Avoid hurtful relationships. MAINTAIN IDEAL BODY WEIGHT The best way to do this is to do all the things above. Our bodies naturally find the right weight if we keep moving and feed ourselves the right food. If your BMI is greater than 25, we strongly recommend a referral to a weight management program. Please speak to us or your family physician about available programs. AVOID NICOTINE IN ALL FORMS This includes all tobacco products, whether chewed, smoked, vaped, or rubbed on the skin. Smoking cessation programs, which can make use of tobacco substitutes, medications to suppress cravings and behavior management, are available. Please contact your family physician about programs in your area. Prescriptions ordered this encounter Disp Refills Start End AMLODIPINE 2.5 MG TABLET 30 t* 11 01/04/2018 Route: ORAL Sig: Take 1 tablet by mouth once daily. Follow-up and Disposition History Recorded Encounter Status:Closed by NEELAM DAVIS MD on 01/04/18 BASIC METABOLIC Collected: 11/16/2017 Status: F Source: [place] PROFILE (BMP) 8:[address] [facility] REPOSITORY Order Comment: Order Date: 11/10/17 Order Info: [id number] - BMP Order Info: 0788-1 - LIVER Order Info: 22103-9 - LIPID TYPE CODE TESTS RESULT OUT OF RANGE REFERENCE UNITS LAB L501.0100 74-106 mg/dL Normal GLU 101 Result Comment: Fasting Glucose result from 100 to 125 mg/dL suggests IMPAIRED HOMEOSTASIS per A.D.A. criteria. Please note revised GLUCOSE reference range effective 2017. LAB L501.1000 7-18 mg/dL Normal BUN 16 LAB L501.1100 0.55-1.02 mg/dL Normal CREAT,SERUM 0.83 Result Comment: The validity of the calculated GFR AND GFRAA in patients over 70 years has not been determined. Clinical correlation is essential. LAB L501.1110 >60 mL/min Normal EST GFR 72 Result Comment: Non- GFR Calc LAB L501.1115 >60 mL/min Normal EST GFR - AA 87 Result Comment: GFR Calc LAB L501.1300 10-20 RATIO Normal BUN/CRE 19.2 LAB L501.2200 8.5-10.1 mg/dL CA Normal 9.4 LAB L501.5300 136-145 mmol/L NA Normal 144 LAB L501.5600 3.5-5.1 mmol/L K Normal 4.0 LAB L501.5900 98-107 mmol/L High CL 108 LAB L501.6100 21.0-32.0 mmol/L Normal CO2 26.0 LAB L501.6200 5-15 Normal GAP 10 Performed By: #### L500.2500, L500.3400, L500.4100, L501.9985 #### [facility] [address] [place], [address] LIVER PROFILE Collected: 11/16/2017 Status: F Source: [place] 8:[address] [facility] REPOSITORY Order Comment: Order Date: 11/10/17 Order Info: [id number] - BMP Order Info: [id number] - LIVER Order Info: [id number] - LIPID TYPE CODE TESTS RESULT OUT OF RANGE REFERENCE UNITS LAB L501.1500 6.4-8.2 g/dL Normal T PROT 7.2 LAB L501.1800 3.2-5.0 g/dL Normal ALB 3.9 LAB L501.1950 2.2-4.2 g/dL Normal GLOB 3.3 LAB L501.4100 15-37 U/L Normal AST 19 LAB L501.4305 45-117 U/L Low ALK P 42 LAB L501.4405 13-56 U/L Normal ALT 30 LAB L501.4600 0.20-1.00 mg/dL Normal T BILI 0.60 LAB L501.4700 0.00-0.30 mg/dL Normal D BILI 0.15 Performed By: #### L500.2500, L500.3400, L500.4100, L501.9985 #### [facility] [address] [place], [address] LIPID PROFILE Collected: 11/16/2017 Status: F Source: [place] 8:[address] [facility] REPOSITORY Order Comment: Order Date: 08/03/18 Order Info: [id number] - BMP Order Info: 0788-1 - LIVER Order Info: [id number] - LIPID TYPE CODE TESTS RESULT OUT OF RANGE REFERENCE UNITS LAB L501.4900 200 mg/dL Normal CHOL 158 Result Comment: <200 mg/dL Desirable 200-240 mg/dL Borderline >240 mg/dL High Risk LAB L501.5000 mg/dL Normal TRIG 123 Result Comment: The drugs N-Acetylcysteine and Metamizole may falsely depress this assay. Serum Triglycerides Reference Interval Normal <150 mg/dL Borderline high 150 - 199 mg/dL High 200 - 499 mg/dL Very High > or = 500 mg/dL LAB L501.6400 mg/dL Normal HDL 54 Result Comment: The drugs N-Acetylcysteine and Metamizole may falsely depress this assay. Reference Range HDL <40 mg/dL Low HDL Cholesterol HDL >or= 60 mg/dL High HDL Cholesterol LAB L501.6500 0-130 mg/dL Normal LDL 79 LAB L501.6600 5-40 mg/dL Normal VLDL 25 Performed By: #### L500.2500, L500.3400, L500.4100, L501.9985 #### [facility] [address] [place], [place], [address] HEMOGLOBIN A1C Collected: 11/16/2017 Status: F Source: [place]QU[place] 8:[address] [facility] REPOSITORY Order Comment: Order Date: 11/10/17 Order Info: [id number] - A1C TYPE CODE TESTS RESULT OUT OF RANGE REFERENCE UNITS LAB L501.9985 4.2-6.3 % Normal HGB A1C 5.5 Performed By: #### L500.2500, L500.3400, L500.4100, L501.9985 #### [facility] [address] [place], [place], [address] ALLERGIES ALLERGIES DATE TYPE / CODE NAME / CODE REACTION SEVERITY SOURCE 02/15/2018 Drug No Known Unknown [place] Allergy/416 Allergies/[id number] [facility]ly [facility] [id number](SN 388(RXNORM) Hospital ED CT) Repository 08/17/2010 DRUG AMLODIPINE OTHER: SEE C [facility] ED [facility] ENCOUNTERS ENCOUNTERS ADMIT/DISCHARGE ACCOUNT ADMITTING ENCOUNTER LOCATION SOURCE NUMBER CLASS 03/22/2018 [id number] Ambulatory [facility] ing:OPBI Repository 03/09/2018 [id number] Ambulatory [facility] ing:CVS Repository 03/08/2018/03/08/20 [id number] Ambulatory [address] ing:PT Repository 03/08/2018 [id number] Ambulatory [facility]MS[facility]:W [facility] Repository 03/08/2018 [id number] Ambulatory [facility] ing:PSN Repository 02/15/2018/02/16/20 [id number] Ambulatory BMSBuilding:B [place] [address] [place] Repository 02/03/2018/02/04/20 [id number] Emergency [address] ing:ED Repository 01/12/2018 [id number] Ambulatory [facility] ing:MTRAD Repository 01/04/2018/01/06/20 [id number] Ambulatory [address] Repository 11/16/2017 [id number] Ambulatory [facility] ing:MFPLAB Repository PAYERS PAYERS ENCOUNTER GUARANTOR PAYER SUBSCRIBER SOURCE 03/22/2018 ANAHI L Primary ANAHI L [place] [id number] S Insurance:ANTHEMPolic HUDGINSDOB: [facility], y Number: [id number] [address]Ime: [id number] Repository Date:8349-18-02[address] () [address]SFZ[place]MG, [place] [address]QN: 03/22/2018 Secondary NOT GIVENUNK [place] Insurance:SELF PAY [facility] Number: Effective Repository Date:2017-11-13 03/09/2018 ANAHI L Primary ANAHI L [place] [id number] S Insurance:ANTHEMPolic HUDGINSDOB: [facility], y Number: [id number] View Regional Medical Center [address]Jso: [id number] Repository Date:1126-61-21[address] () [address]IFPIGTV, [place] [address]FK: 03/09/2018 Secondary NOT GIVENUNK [place] Insurance:SELF PAY [facility] Number: Effective Repository Date:2018-02-21 03/08/2018 ANAHI L Primary ANAHI L [place] [id number] S Insurance:ANTHEMPolic HUDGINSDOB: Community [place], y Number: [id number] View Regional Medical Center [address]Aol: [id number] Repository Date:8413-47-59VP [address] () [address]39214WPSP[place]NM, [place] [address]MY: 03/08/2018 Secondary NOT GIVENUNK [place] Insurance:SELF PAY [facility] Number: Effective Repository Date:2018-01-25 03/08/2018 ANAHI L Primary ANAHI L [place] [id number] S Insurance:ANTHEMPolic HUDGINSDOB: Community [place], y Number: [id number] View Regional Medical Center [address]Pjn: [id number] Repository Date:0413-22-56LI [address] () [address]4962OPOJXNK, [place] [address]HF: 03/08/2018 Secondary NOT GIVENUNK [place] Insurance:SELF PAY [facility] Number: Effective Repository Date:2018-03-08 03/08/2018 ANAHI L Primary ANAHI L [place] [id number] S Insurance:ANTHEMPolic HUDGINSDOB: Community [place], y Number: [id number] View Regional Medical Center [address]Xio: [id number] Repository Date:4773-20-78VI [address] () [address]677[address]XRWVAFC, [place] [address]AM: 03/08/2018 Secondary NOT GIVENUNK [place] Insurance:SELF PAY [facility] Number: Effective Repository Date:2018-02-15 02/15/2018 ANAHI L Primary ANAHI L [place] [id number] S Insurance:ANTHEMPolic HUDGINSDOB: Community [place], y Number: [id number] View Regional Medical Center [address]Fsv: [id number] Repository Date:0122-44-81QY [address] () [address]07[address]POBWRZRKELLY [place] [address]SG: 02/15/2018 Secondary NOT GIVENUNK [place] Insurance:SELF PAY [facility] Number: Effective Repository Date:2018-02-05 02/03/2018 ANAHI L Primary ANAHI L [place] [id number] S Insurance:ANTHEMPolic HUDGINSDOB: Community [place], y Number: [id number] View Regional Medical Center [address]Tly: [id number] Repository Date:3509-00-16NQ [address] () 837147JTLPXIQ, [place] [address]RB: 02/03/2018 Secondary NOT GIVENUNK [place] Insurance:SELF PAY [facility] Number: Effective Repository Date:2018-02-03 01/12/2018 Anahi L Primary Anahi L [place] [id number] S Insurance:ANTHEMPolic [place]DOB[place] Number: [id number] View Regional Medical Center [address]Wyr: [id number] Repository Date:0322-05-59GP [address] () 113466TVEOBXA, [place] [address]RF: 01/12/2018 Secondary NOT GIVENUNK [place] Insurance:SELF PAY [facility] Number: Effective Repository Date:2018-01-12 11/16/2017 Anahi L Primary Anahi L [place] [id number] S Insurance:ANTHEMPolic HudginsDOB: [place] [address] Number: [id number] View Regional Medical Center [address]Yyt: [id number] Repository Date:8035-28-25SD [address]OX () 369[address]BDLYSDKKELLY THORNTON [id number]: 11/16/2017 Secondary NOT GIVENUNK Miquel Insurance:SELF PAY [facility] Number: Effective Repository Date:2017-11-16
== END ==
PROVIDERS: Family Provider Family Medicine; PCP Family Medicine; Referring Provider Internal Medicine Critical Care Medicine; Visit Provider Internal Medicine Critical Care Medicine
DX: I26.99 Other pulmonary embolism without acute cor pulmonale (principal)
CPT/HCPCS: 94060; 94726; 94729

== ENCOUNTER 2018-03-08 09:00 | Outpatient (RCR) | payer BC, SELFPAY ==
--- NOTE | 2018-02-01 10:59 | HP.PTEVAL_ITS ---
Patient's Visit Information CHRISTINA GARCIA is a 67 year old F referred to Physical Therapy by Rajiv Adams with a diagnosis of Right Teres Minor Strain and Trap. Date of Evaluation: 02/01/18 Physical Therapist: Funmi Belcher - Visit Plan Frequency: 2x /Week Duration: 4 Weeks Plan: Focus on scap s/s- lifting mechanics. - Subjective Subjective: Patient reports that she has numbness on the right at night. Dr. Linda ott gave her prednisone for 3 weeks and now its better. The right shoulder is now bothering her for about 6 months. Agg:night time, throwing dog toys, lifting it certain ways. Worst: 12/18 sharp shooting- Most of the time its a dully achy /10. Best: 04/19. Pain is in the shoulder with radiating pain into the neck- can feel it down to the elbow. 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 No increase in [place], blurred vision or dizziness. Sleep: disturbed- side sleeper and can lay on it if she gets it positioned just right. 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 When she reposotions the arm the pain goes away. The joint feel ezra. Right hand dominate. Notices the neck pain when its at end range and turning to the right. PCP did shoulder x-ray- negative- no s/s of arthritis. No injection- finished the Predisone-last Monday was the last day. PMHx: 11 years ago ovarian cancer- remission since then, HTN. Meds: HCTz, aldactone, ramapril, spironlactone, corig. [facility]- 1x a week but has stopped due to the discomfort. - Objective Posture: FH, RS- can correct with verbal cues but does not maintain. Gait: good arm swing and trunk rotation. Palpation: tender along upper trap, biciptal groove, and down to the elbow, tightness throughout cervical paraspinals- mild discomfort with suboccipital release. ROM: finger dexterity: WNL, Elbow: WNL, Shoulder: WNL with pain at end range flexion, abduction, IR. Cervical: WFL discomfort with SB to the right and rotation to the right. 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 Special Test: Neer: positive, Horne Toney: positive, Empty Can: negative, Cervical Distraction: no change in s/s - Goals Goal 1:: Patient will be I with HEP and progression Goal Time Frame: 4-6 Weeks Goal 2:: Patient will maitain proper posture t/o tx session to demo increased scap s/s. Goal Time Frame: 4-6 Weeks Goal 3:: Patient will demo 5/5 strength in UE where deficit Goal Time Frame: 4-6 Weeks Goal 4:: Patient will report 0/10 pain for 1 week Goal Time Frame: 4-6 Weeks Goal 5:: Patient will lift 15# box x10 from floor to waist for work simulation. Goal Time Frame: 4-6 Weeks - Rehabilitation Potential Physical Therapy Diagnosis: Patient presents with hypomobility- she has decreased ROM, strength and muscular endurance leading to poor posture and increased pain with ADL's Rehabilitation Potential: Fair - Anticipated Interventions Patient/Client Instruction: Educate patient on: Benefits of Fitness Program Therapeutic Exercise to Include: Strength training, Endurance training, Body mechanics, Postural training, Flexibilty training, Passive ROM, Active ROM, Scapular Strength/Stabilization For the Purpose of:: To improve muscle performance and motor function TENS: Yes Cryotherapy (ice pack, ice massage): Yes Thermo therapy (hot pack): Yes Ultrasound (thermal/non thermal): Yes Thank you for the opportunity to evaluate your patient. For Medicare and Medicare HMO plans, please review the plan of care and approve it. It will need to be FAXED BACK to us at [phone] for Medicare purposes. Please let me know if there are questions or concerns regarding this plan of care. Physician Sign ature: Date:
--- NOTE | 2018-03-08 09:31 | HP.PTDCSUM_ITS ---
HP - PT D/C Summary It has been my pleasure to treat CHRISTINA GARCIA under orders from Rajiv Adams, for the diagnosis of Right Teres Minor Strain and Trap for a total of 6 visit(s). Discharge Date: Please see the following information for a summary of their discharge status. - Subjective Subjective: Patient reports that the pain is better overhead but behind her is still painful. The numbness is back daily when she is sleeping. Reedy like it got better but its still right there- can tolerate during the day but its bad during the night. Could she live with it yes but its really bothersone. - Pain R SH Pain Intensity (Out of 10): 3 L rib cage Pain Intensity (Out of 10): 0 - Overall Improvement % Improvement: 50 - Objective Objective/Function: Posture: FH, RS- can correct with verbal cues but does not maintain more than 3 minutes in re-evaluation. Gait: good arm swing and trunk rotation. Palpation: tender along upper trap, biciptal groove, and down to the elbow, tightness throughout cervical paraspinals ROM: finger dexterity: WNL, Elbow: WNL, Shoulder: WNL with pain at end range IR. Cervical: WFL discomfort with SB to the right and rotation to the right. 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 Special Test: Neer: positive, Horne Toney: positive, Empty Can: negative, Cervical Distraction: no change in s/s - Goals Goal 1:: Patient will be I with HEP and progression Goal Progress: Goal Met Goal 2:: Patient will maitain proper posture t/o tx session to demo increased scap s/s. Goal Progress: Progressing Goal 3:: Patient will demo 5/5 strength in UE where deficit Goal Progress: Progressing Goal 4:: Patient will report 0/10 pain for 1 week Goal Progress: Not Progressing Goal 5:: Patient will lift 15# box x10 from floor to waist for work simulation. Goal Progress: Progressing - Plan Plan: Discharge- return to MD for further evaluation. - D/C Information If there are questions or concerns regarding this patient's physical therapy, please feel free to call me at [phone]. Thank you for the referral of this patient. Sincerely, Funmi Belcher
== END 2018-03-08 19:00 | disposition home or self-care (01) ==
LOC: PT 09:00
PROVIDERS: Family Provider Family Medicine; PCP Family Medicine; Referring Provider Family Medicine; Visit Provider Family Medicine
DX: S46.011D Strain of muscle(s) and tendon(s) of the rotator cuff of right shoulder, subsequent encounter (principal)
CPT/HCPCS: 97110; 97161; 97164

== ENCOUNTER → 2018-03-09 08:32 | Outpatient (CLI) | payer BC, SELFPAY ==
[2018-02-15 06:44] VITALS: BMI 28.3
--- NOTE | 2018-03-09 08:36 | ECHOD_ITS ---
Reason For Study: Emboli Procedure This was a 2D Doppler, Color Flow transthoracic echocardiogram. Myocardial strain analysis was performed in this exam to aid in the assessment of cardiac function. The exam was of adequate technical quality. Exam performed in department. Left Ventricle Normal LV size. Left ventricular systolic function is normal. The estimated ejection fraction is 65 %. The global longitudinal strain = -23 % (normal). Diastolic function is indeterminate. No regional wall motion abnormalities noted. Right Ventricle Normal RV size. Normal systolic function. Atria Normal left atrium. Normal right atrium. No doppler evidence for ASD. Mitral Valve There is mild mitral annular calcification. Mild focal mitral valve calcification of the anterior leaflet. Mild (1+) eccentric mitral valve insufficiency. Tricuspid Valve Normal tricuspid valve. Mild tricuspid valve insufficiency. Right ventricular systolic pressure estimated to be 28 mmHg. Aortic Valve Trisinus/trileaflet aortic valve. Mild diffuse aortic valve thickening. Mild focal aortic valve calcification. Aortic sclerosis, no stenosis. Mild (1+) aortic valve insufficiency. Pulmonic Valve The pulmonic valve is not well visualized. Great Vessels Normal sized aortic root. Pericardium/Pleural No pericardial effusion. MMode/2D Measurements & Calculations LVIDd: 4.0 cm IVSd: 1.1 cm Ao root diam: 3.3 cm LVIDs: 1.8 cm LVPWd: 1.1 cm LA dimension: 4.0 cm RVDd: 2.8 cm FS: 54.5 % LAV(MOD-bp): 40.0 ml LVAd ap4: 21.8 cm2 SV(MOD-sp4): 43.8 ml LAV(MOD-bp) Indexed: 22.1 ml/m2 EDV(MOD-sp4): 58.0 ml LAV(MOD-sp2): 45.8 ml EDV(sp4-el): 59.5 ml LAV(MOD-sp4): 33.4 ml LVAs ap4: 9.4 cm2 ESV(MOD-sp4): 14.1 ml ESV(sp4-el): 14.3 ml EF(MOD-sp4): 75.6 % EF(sp4-el): 75.9 % SV(sp4-el): 45.2 ml LA A4 area: 14.6 cm2 RA A4 area: 12.0 cm2 Doppler Measurements & Calculations MV E max adrian: 78.5 cm/sec Lat Peak E' Adrian: 10.1 cm/sec Med Peak E' Adrian: 5.2 cm/sec MV A max adrian: 87.2 cm/sec E/E' lat: 7.7 E/E' med: 15.2 MV E/A: 0.90 Ao V2 max: 164.8 cm/sec LV V1 max: 130.6 cm/sec PA V2 max: 106.1 cm/sec Ao max P.9 mmHg LV V1 max P.8 mmHg Ao V2 mean: 100.3 cm/sec Ao mean P.7 mmHg Ao V2 VTI: 29.6 cm TR max adrian: 251.8 cm/sec TR max P.4 mmHg Interpretation Summary Left ventricular systolic function is normal. The estimated ejection fraction is 65 %. The global longitudinal strain = -23 % (normal). There is mild mitral annular calcification. Mild focal mitral valve calcification of the anterior leaflet. Mild (1+) eccentric mitral valve insufficiency. Mild tricuspid valve insufficiency. Aortic sclerosis, no stenosis. Mild (1+) aortic valve insufficiency. Right ventricular systolic pressure estimated to be 28 mmHg. Diastolic function is indeterminate. Ordering Physician: Chava Ramirez Referring Physician: Luis A Nino Performed By: Jeri Segovia, JAMEY, RVT
--- OUTSIDE RECORDS SUMMARY | 2018-05-04 03:18 | XMS RPT_ITS ---
:1950 Author Organization [place] Support Name Relationship Address Phone CHARLESRIV Unavailable [address] + [place] [address] JOSE AURELIANO Unavailable [address] + [place] [address] DIMITRY BEAVER Unavailable [address] + [place] [address] [address] + [place] [address] JOSE AURELIANO Unavailable [address] + [place] [address] DIMITRY BEAVER Unavailable [address] + [place] [phone] CHARLESRIV Unavailable [address] + [place] [phone] JOSE AURELIANO Unavailable [address] + [place] [address] DIMITRY BEAVER Unavailable [address] + [place] [phone] CHARLESRIV Unavailable [address] + [place] [address] JOSE AURELIANO Unavailable [address] + [place] [address] DIMITRY BEAVER Unavailable [address] + [place] [phone] CHARLESRIV Unavailable [address] + [place] [address] JOSE AURELIANO Unavailable [address] + [place] [address] DIMTIRY BEAVER Unavailable [address] + [place] [phone] CHARLESRIV Unavailable [address] + [place] [address] JOSE, AURELIANO Unavailable [address] + [place] [address] MAUREEN BEAVERIE Unavailable [address] + [place] [address] [address] Un[address] + [place] [address] JOSE, AURELIANO Unavailable [address] + [place] [address] BEAVERMAUREEN ASHIE Unavailable [address] + [place] [address] [address] Un[address] + [place] [address] JOSE, AURELIANO Unavailable [address] + [place] [address] MAUREEN BEAVERIE Unavailable [address] + [place] [address] [address] Un[address] + [place] [address] JOSE, AURELIANO Unavailable [address] + [place] [address] MAUREEN BEAVERIE Unavailable [address] + [place] [phone] Care Team Providers Name Role Phone NEELAM DAVIS Attending Unavailable NEELAM DAVIS Referring Unavailable Chava Ramirez Attending Unavailable James, Chava Referring Unavailable Nino, Luis A Attending Unavailable Nino, Luis A Referring Unavailable Nino, Luis A Primary Care Unavailable Chava Ramirez Attending Unavailable James, Chava Referring Unavailable Nino, Luis A Primary Care Unavailable James, Chava Attending Unavailable James, Chava Referring Unavailable Nino, Luis A Primary Care Unavailable James, Chava Attending Unavailable Nino, Luis A Referring Unavailable Nino, Luis A Primary Care Unavailable UngRafaela neil Attending Unavailable Rajiv Adams Attending Unavailable Bryan, Rajiv Referring Unavailable Nino, Luis A Primary Care Unavailable Nino, Luis A Attending Unavailable Nino, Luis A Referring Unavailable Nino, Luis A Primary Care Unavailable Nino, Luis A Attending Unavailable Nino, Luis A Primary Care Unavailable PROBLEMS PROBLEMS DATE TYPE CONDITION / CODE ATTENDING STATUS SOURCE 03/13/2018 Unknown S46.011D - [place], Active [facility] of muscle(s) and Rajiv Community tendon(s) of the Hospital rotator cuff of Repository right shoulder, subsequent encounter / S46.011D(ICD-10) 03/23/2018 Unknown I26.99 - Other Chava Ramirez Active [facility] pulmonary Community embolism without Hospital acute cor Repository pulmonale / I26.99(ICD-10) 02/03/2018 Unknown R07.9 - Chest UngRafaela neil Active [facility] pain, unspecified Community / R07.9(ICD-10) Hospital Repository 01/12/2018 Unknown M25.511 - Pain in Luis A Nino Active [facility] right shoulder / Community M25.511(ICD-10) Hospital Repository 01/04/2018 Active Unknown / NEELAM DAVIS Active [facility] UNK(Unknown) Main [place] Repository PROCEDURES PROCEDURES No Procedure Records FoundRESULTS RESULTS SCREENING MAMM (CAD), Observed: 03/22/2018 Status: F Source: [place] BILAT 9:44 AM [facility] REPOSITORY [facility] Imaging Services [address] [place] [address] SCREENING MAMM (CAD), BILAT MR#: [id number] Acct: [id number] Name: ANAHI PLATT Rep #: [id number] : 1950 F 67 From: Haseeb Jacobo MD PCP: Luis A Nino MD Status: REG CLI Study: SCREENING MAMM (CAD), BILAT Date of Exam: 03/22/18 Exam# [id number] Ordering Dr: Luis A Nino MD MAMMOGRAPHY [...] delay biopsy of a clinically suspicious abnormality. [id number] Electronically Signed: Haseeb Jacobo MD at 12:39 EST Tel [phone], Service support , CC: Luis A Nino MD Batchmaker: Signed ECHOCARDIOGRAM COMPLETE Observed: 03/09/2018 Status: F Source: [place] 6:09 PM [facility] REPOSITORY [facility] Cardiovascular Services [address] [place] [address] Echo Complete 03/09/18 0846 MR#: [id number] Acct: [id number] Name: ANAHI PLATT Rep #: [id number] : 1950 67 From: Arvin Perla MD Attending Dr: Chava Ramirez MD Status: REG CLI Ordering Dr: Chava Ramirez MD Date: 03/09/18 Location: [facility] Sex: F C Admitted: Reason For Study: [...] Date Dictated: 03/09/18 0846 Date Transcribed: 03/09/181807 Batchmaker: Signed PULMONARY FUNCTION Observed: 03/09/2018 Status: F Source: [place] REPORT COMP 5:45 AM [facility] REPOSITORY [facility] Pulmonary Services/Neurology [address] [place] [address] MR#: [id number] Acct: [id number] Name: ANAHI PLATT Rep #: [id number] : 1950 67 From: Chava Ramirez MD Referring Dr: Chava Ramirez MD Status: REG CLI Ordering Dr: Date: Location: [facility] Sex: F C COMPLETE PULMONARY FUNCTION TEST INTERPRETATION Brief HPI: Patient is a 67 year old female, currently under the care of myself, who presents to [facility] for complete pulmonary function tests secondary to [...] MD Date Dictated: 03/08/181107 Date Transcribed: 03/08/181107 Batchmaker: HENRIETTA Signed PT D/C SUMMARY (1) Observed: 03/08/2018 Status: F Source: [place] 9:31 AM [facility] REPOSITORY [facility] [address] [facility]. [address] [place] [address] Fax REHABILITATION SERVICES DISCHARGE SUMMARY MR#: [id number] Acct: [id number] Name: ANAHI PLATT Rep #: [id number] : 1950 67 From: Funmi Belcher DPT [...] is back daily when she is sleeping. [place] like it got better but its still [...] to the right. Strength: Scap: fair minus, Distribution Lead: WNL, Elbow: flexion: 5/5, extn: 4+/5 with [...] please feel free to call me at [phone]. Thank you for the referral of this patient. Sincerely, Funmi Belcher <Electronically signed by Funmi Belcher DPT> 03/08/18 0931 CC: Rajiv Adams MD; Luis A Nino MD ELR Signed PULMONARY VISIT REPORT Observed: 02/15/2018 Status: F Source: [place] 12:14 PM [facility] REPOSITORY Pulmonary Medicine of [address] [place] [address] OFFICE VISIT Date of Service: 02/15/18 MR#: [id number] Acct: [id number] Name: ANAHI PLATT Rep #: [id number] : 1950 Provider: Chava Ramirez MD Age/Sex: 67/F Location: [facility].PMW Status: Signed Assessment AND Plan Problems 1. 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 Plan Pulmonary embolism despite [place] filter placed several years ago. Patient has [...] Changed Plan Detail Follow Up 1 Month ([facility]) HPI ER F/U: Chief Complaint: Recent PE [...] with ovarian cancer. 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 Accompanied by: Daughter Is patient [...] house current occupational status: employed current occupation: [employer] pets and animals: Yes pets and animals: [...] 02/03/2018 Status: F Source: [place] 12:38 PM [facility] REPOSITORY [facility] Medical Records Department [address] [place] [address] Discharge Instruction 02/03/18 1235 MR#: [id number] Acct: [id number] Name: ANAHI PLATT Eli Rep #: [id number] : 1950 67 From: Rafaela Krishnan DO PCP: Luis A Nino MD Status: REG ER ED Disposition - Plan for ED Patient: Chief Complaint: Chest Other Prescriptions: Hydrocodone Bitart/Apap 5-325 [Spring 5MG-325MG] 1 tab PO Q4H PRN PRN [...] your Primary Care Provider. Call [facility] ([phone]) or report to the closest Emergency Room. Call 911 if necessary. 02/03/18 1238 <Electronically signed by Rafaela Krishnan DO> Date Rafaela Krishnan DO Cosigner Signature (If Indicated): Date CC: Luis A Nino MD EMERGENCY DEPARTMENT Observed: 02/03/2018 Status: F Source: [place] SUMMARY 12:35 PM [facility] REPOSITORY [facility] Medical Records Department [address] [place] [address] Emergency Department Summary 02/03/18 1232 MR#: [id number] Acct: [id number] Name: ANAHI PLATT Rep #: [id number] : 1950 67 From: Rafaela Krishnan DO [...] an ovarian cancer. Patient does have a [place] filter in place.] Physical Examination: [HEENT-PERRLA, EOMI. [...] [Patient will be started on Eliquis and Spring for pain. Patient to follow-up with Dr. [...] infarct ] This note was generated with weeSpring dictation software. It may contain incorrect words, [...] your Primary Care Provider. Call [facility] ([phone]) or report to the closest Emergency Room. Call 911 if necessary. 02/03/18 1235 <Electronically signed by Rafaela Krishnan DO> Date Rafaela Krishnan DO Cosigner Signature (If Indicated): Date CC: Luis A Nino MD PROTEIN S ANTIGEN Collected: 02/03/2018 Status: F Source: [place] 12:15 PM [facility] REPOSITORY TYPE CODE TESTS RESULT OUT OF RANGE REFERENCE UNITS LAB L3100.7100 60-150 % Normal PROTEIN 100 S,TOTAL Result Comment: This test was developed and its performance characteristics determined by [facility]. It has not been cleared or approved by the Food and Drug Administration. LAB L3100.7200 57-157 % Normal PROTEIN S, FREE 67 Result Comment: This test was developed and its performance characteristics determined by [facility]. It has not been cleared or approved by the Food and Drug Administration. Performed By: #### L3100.7050, L3100.7300, L3100.8410, L3300.0500, L3410.2000, L4500.0100, L4500.2000, L4500.5000 #### [facility] (refer to report for specific site) refer to report for address and phone number PROTEIN C ANTIGEN Collected: 02/03/2018 Status: F Source: [place] 12:15 PM [facility] REPOSITORY TYPE CODE TESTS RESULT OUT OF RANGE REFERENCE UNITS LAB L3100.7300 60-150 % Normal PROTEIN C 110 Result Comment: Performed at: - [address] [id number] Senior Energy Consultant: Ashvin Dubon MD, Phone: [phone] Performed at: CB - [address] [id number] Senior Energy Consultant: Nilson Porter PhD, Phone: [phone] Performed at: [facility] [address] [place], [place] [id number] Senior Energy Consultant: Daly Shea MD, Phone: [phone] Performed By: #### L3100.7050, L3100.7300, L3100.8410, L3300.0500, L3410.2000, L4500.0100, L4500.2000, L4500.5000 #### [facility] (refer to report for specific site) refer to report for address and phone number ANTICARDIOLIPIN IGG, IGM Collected: 02/03/2018 Status: F Source: [place] 12:15 PM [facility] REPOSITORY TYPE CODE TESTS RESULT OUT OF [...] 02/03/2018 Status: F Source: [place] 12:15 PM [facility] REPOSITORY TYPE CODE TESTS RESULT OUT OF [...] Status: F Source: [place] 12:15 PM [facility] REPOSITORY TYPE CODE TESTS RESULT OUT OF [...] 02/03/2018 Status: F Source: [place] 12:15 PM [facility] REPOSITORY TYPE CODE TESTS RESULT OUT OF [...] Status: F Source: [place] ANALYSIS 12:15 PM [facility] REPOSITORY TYPE CODE TESTS RESULT OUT OF RANGE REFERENCE UNITS LAB L4500.2100 . Normal FACTOR Comment II,DNA Result Comment: NEGATIVE No mutation identified. Comment: A point mutation ([id number]) in the factor II (prothrombin) gene is [...] mutations. This assay detects only the prothrombin G89714I mutation and does not measure genetic abnormalities [...] health care providers to discuss results at [phone]). Methodology: DNA analysis of the Factor II [...] Administration. Poort SR, et al. Blood. 1996; 88:7695-3006. Kortney ACOSTA. Circulation. 2004; 110:e15-e18. Audra I, et al. Arterioscler Thromb Vasc Biol. 1999; 19:700-703. Pb Thorne, PhD, [facility] Marlin Hunter, PhD, [facility] Pam Thornton M.S., PhD, FAC Maryana Lin, PhD, FAC Brigido Braun, PhD, [facility] Scott Jones, PhD, [facility] Performed By: #### L3100.7050, L3100.7300, L3100.8410, L3300.0500, L3410.2000, L4500.0100, L4500.2000, L4500.5000 #### [facility] (refer to report for specific site) refer to report for address and phone number FACT V LEIDEN Collected: 02/03/2018 Status: F Source: [place] MUTATION 12:15 PM [facility] REPOSITORY TYPE CODE TESTS RESULT OUT OF [...] the workup for venous thrombosis include the L42997G mutation in the factor II (prothrombin) gene, protein S and C deficiency, and antithrombin deficiencies. Anticardiolipin antibody and lupus anticoagulant analysis may be appropriate for certain patients, as well as homocysteine levels. Contact your local [facility] for information on how to order additional testing if desired. Genetic counselors are available for health care providers to discuss results at [phone]). Methodology: DNA analysis of the Factor V [...] 02/03/2018 Status: F Source: [place] 10:33 AM [facility] REPOSITORY TYPE CODE TESTS RESULT OUT OF [...] Lymph 1.04 Performed By: #### L100.0100 #### [facility] [address] [place], [place], [address] BASIC METABOLIC Collected: 02/03/2018 Status: F Source: [place] PROFILE (BMP) 10:33 AM [facility] REPOSITORY TYPE CODE TESTS RESULT OUT OF [...] GAP 9 Performed By: #### L500.2500 #### [facility] [address] [place], [address] CTA CHEST W/WO Observed: 02/03/2018 Status: F Source: [place] CONTRAST 10:19 AM [facility] REPOSITORY [facility] Imaging Services [address] [place] [address] CTA Chest W/WO Contrast MR#: [id number] Acct: [id number] Name: ANAHI PLATT Rep #: [id number] : 1950 F 67 From: Ross Scott MD PCP: Luis A Nino MD Status: REG ER Study: CTA Chest W/WO Contrast Date of Exam: 02/03/18 Exam# [id number] Ordering Dr: Rafaela Krishnan DO STUDY: CTA [...] Luis A Nino MD; Rafaela Krishnan DO Batchmaker: Signed INITAL EVALUATION (1) Observed: 02/01/2018 Status: F Source: [place] - 10:59 AM [facility] REPOSITORY [facility] [address] [place] [address]. [address] [place] [address] Fax REHABILITATION SERVICES INITIAL EVALUATION MR#: [id number] Acct: [id number] Name: ANAHI PLATT Rep #: [id number] : 1950 67 From: Funmi Belcher DPT [...] elbow. No issues with finger dexterity or chick sexer strength. No increase in LAWR[place], blurred vision or dizziness. Sleep: disturbed- side sleeper and can lay on it if she gets it positioned just right. 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 Strength: Scap: fair minus, Distribution Lead: WNL, Elbow: flexion: 4+/5 with discomfort, extn: [...] to be FAXED BACK to us at [phone] for Medicare purposes. Please let me know [...] 01/12/2018 Status: F Source: [place] 11:41 AM [facility] REPOSITORY [facility] Imaging Services [address] [place], [place] [address] [address] Shoulder min 2 Views MR#: [id number] Acct: [id number] Name: ANAHI PLATT Rep #: [id number] : 1950 F 67 From: Guillermo Martinez DO PCP: Luis A Nino MD Status: REG CLI Study: Shoulder min 2 Views Date of Exam: 01/12/18 Exam# [id number] Ordering Dr: Luis A Nino MD STUDY: [...] Guillermo Martinez DO at 9:39 EDT Tel [phone], Service support , CC: Luis A Nino MD Batchmaker: Signed CNNURSE Observed: 01/04/2018 Status: COMPLETED Source: [place] 10:45 AM [facility] REPOSITORY Nurse Visit (CAWSTR) ANAHI PLATT ([id number]) 1950 F Date Time Provider Department 01/04/18 10:45 AM [facility] During your visit today, we recorded the following information about you: Marlin Thomas MA 01/08/2018 10:00 AM Signed EKG completed and given to Dr Davis for review. Marlin Thomas MA Referring Provider: NEELAM DAVIS [[id number]] Allergies As of Date: 01/04/2018 Noted Allergy [...] C* TAKE 1 CAPSULE DAILY * GLUCOSAMINE HHWCSTGPATGD-CM-HWU* Take 1 tablet by mouth once d* * B JRQVAOA-DXW-MM COMB3-AO CB4* Take 1 tablet by mouth [...] 01/08/18 PROGRESS Observed: 01/04/2018 Status: COMPLETED Source: [place] 10:08 AM [facility] REPOSITORY HNO ID: [id number] Author: Neelam Davis Service: (none) Author Type: Physician Type: Progress Notes Filed: 01/04/2018 6:08 PM Note Text: PERTINENT CARDIAC HISTORY HTN - essential HL ADHERENCE TO GUIDELINES MAURO-I or ARB for HF with prior LVEF<40 (NQF 0081) - N/A ASA or Plavix for ASHD (NQF 0067) - N/A Beta sonya for ASHD with prior DC or prior LVEF<40 (NQF 0070) - N/A Beta sonya for HF with prior LVEF<40 (NQ 0083) - N/A MAURO-I or ARB for ASHD with DM or prior LVEF<40 (NQ 0066) - N/A Statin therapy for ASHD or FHL or DM - met BMI documented and plan if >25 ([facility] 0421) - lifestyle recommendation form Tobacco use screening and referral ([facility] 0028) - lifestyle recommendation form Recommendation for [...] DAILY GLUCOSAM AND CHONDROIT-MV AND MIN3 (GLUCOSAMINE MQQAQGZOKYQU-CW-LNQ0 ORAL) Take 1 tablet by mouth once daily. AA COMB.NO3/B/MV-AO4/MN/MIN AA (B RUFJQWR-BNF-ZK COMB3-AO CB4 ORAL) Take 1 tablet by [...] MD EKG1 Observed: 01/04/2018 Status: F Source: [place] 9:46 AM [facility] REPOSITORY NAME : ANAHI PLATT PID : [id number] : 1950 Gender : Female Race : [...] ms QTC Calculation(Bezet) : 372 ms P Hanna : 20 degrees R Hanna : 31 degrees T Hanna : 45 degrees Test Reason : Location : 136 : [place] Overread By : NEELAM DAVIS MD Edited By : NEELAM DAVIS MD Referred By : RYAN, Acquired by : CASSIDY RAYO Observed: 01/04/2018 Status: COMPLETED Source: [place] 9:45 AM [facility] REPOSITORY Office Visit (CAWSTR) ANAHI PLATT ([id number]) 1950 F Date Time Provider Department 01/04/18 [...] N/A Beta sonya for ASHD with prior DC or prior LVEF<40 (NQF 0070) - N/A [...] DAILY GLUCOSAM AND CHONDROIT-MV AND MIN3 (GLUCOSAMINE URXZAXWKMADP-YP-BLJ4 ORAL) Take 1 tablet by mouth once daily. 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 EAT A WHOLE FOOD, PLANT BASED [...] in your area. Referring Provider: NEELAM DAVIS [[id number]] Allergies As of Date: 01/04/2018 Noted Allergy Reaction NORVASC (AMLODIPINE BESYLATE) 08/17/2010 14 - Other: See Comments Comments: edema Date Reviewed: 01/04/2018 Reviewed by: Marlin Thomas MA - Fully Assessed Reason for Visit: Established Patient [175] Cmt: HTN Primary Visit Diagnosis:Hypertension, essential [I10] Order(s):ECG COMPLETE W INTERPRETATION [ECG01] Order #: [id number] FUTURE amLODIPine (NORVASC) 2.5 mg tabletTake 1 [...] C* TAKE 1 CAPSULE DAILY * GLUCOSAMINE OSJTCQUWNIAS-BA-CVT* Take 1 tablet by mouth once d* * B WFOARJS-NXO-QL COMB3-AO CB4* Take 1 tablet by mouth [...] the following areas and commit to making usp changes. EAT A WHOLE FOOD, PLANT BASED [...] F Source: [place] PROFILE (BMP) 8:26 AM [facility] REPOSITORY Order Comment: Order Date: 11/10/17 Order Info: 0667-1 - BMP Order Info: 0788-1 - LIVER Order Info: 20174-7 - LIPID TYPE CODE TESTS RESULT OUT [...] By: #### L500.2500, L500.3400, L500.4100, L501.9985 #### [facility] [address] [place], [address] LIVER PROFILE Collected: 11/16/2017 Status: F Source: [place] 8:26 AM [facility] REPOSITORY Order Comment: Order Date: 11/10/17 Order Info: 0667-1 - BMP Order Info: 0788-1 - LIVER Order Info: 82750-3 - LIPID TYPE CODE TESTS RESULT OUT [...] By: #### L500.2500, L500.3400, L500.4100, L501.9985 #### [facility] [address] [place], [address] LIPID PROFILE Collected: 11/16/2017 Status: F Source: [place] 8:26 AM [facility] REPOSITORY Order Comment: Order Date: 08/03/18 Order Info: 0667-1 - BMP Order Info: 0788-1 - LIVER Order Info: 43352-5 - LIPID TYPE CODE TESTS RESULT OUT [...] By: #### L500.2500, L500.3400, L500.4100, L501.9985 #### [facility] [address] [place], [place], [address] HEMOGLOBIN A1C Collected: 11/16/2017 Status: F Source: [place] 8:26 AM [facility] REPOSITORY Order Comment: Order Date: 11/10/17 Order Info: 4548-4 - A1C TYPE CODE TESTS RESULT OUT OF RANGE REFERENCE UNITS LAB L501.9985 4.2-6.3 % Normal HGB A1C 5.5 Performed By: #### L500.2500, L500.3400, L500.4100, L501.9985 #### [facility] [address] [place], [place], [address] ALLERGIES ALLERGIES DATE TYPE / CODE NAME / CODE REACTION SEVERITY SOURCE 02/15/2018 Drug No Known Unknown [place] Allergy/416 Allergies/D513355 [facility] 800987(SN 388(RXNORM) Hospital ED CT) Repository 08/17/2010 DRUG AMLODIPINE OTHER: SEE C [facility]SN Repository ED CT) ENCOUNTERS ENCOUNTERS ADMIT/DISCHARGE ACCOUNT ADMITTING ENCOUNTER LOCATION SOURCE NUMBER CLASS 03/22/2018 [id number] Ambulatory [facility] ing:OPBI Repository 03/09/2018 [id number] Ambulatory [facility] ing:CVS Repository 03/08/2018/03/08/20 [id number] Ambulatory [address] ing:PT Repository 03/08/2018 [id number] Ambulatory [facility] Repository 03/08/2018 [id number] Ambulatory [facility] ing:PSN Repository 02/15/2018/02/16/20 [id number] Ambulatory BMSBuilding:[place] [address] [place] Repository 02/03/2018/02/04/20 [id number] Emergency [address] ing:ED Repository 01/12/2018 [id number] Ambulatory [facility] ing:MTRAD Repository 01/04/2018/01/06/20 [id number] Ambulatory [address] Repository 11/16/2017 [id number] Ambulatory [facility] ing:MFPLAB Repository PAYERS PAYERS ENCOUNTER GUARANTOR PAYER SUBSCRIBER SOURCE 03/22/2018 ANAHI L Primary ANAHI L [place] [id number] S Insurance:ANTHEMPolic HUDGINSDOB: [facility], y Number: [id number] [facility] [address]Ijq: [id number] Repository Date:8791-81-51[address] () [address], [place] [address]EC: 03/22/2018 Secondary NOT GIVENUNK [place] Insurance:SELF PAY [facility] Number: Effective Repository Date:2017-11-13 03/09/2018 ANAHI L Primary ANAHI L [place] [id number] S Insurance:ANTHEMPolic HUDGINSDOB: [facility], y Number: [id number] Healthcare Facility [address]Pef: [id number] Repository Date:5715-95-89VR [address] () [address], [place] [address]FB: 03/09/2018 Secondary NOT GIVENUNK [place] Insurance:SELF PAY [facility] Number: Effective Repository Date:2018-02-21 03/08/2018 ANAHI L Primary ANAHI L [place] [id number] S Insurance:ANTHEMPolic HUDGINSDOB: [facility] [place] [place], y Number: [id number] Healthcare Facility [address]Yjf: [id number] Repository Date:1947-16-67[address] () [address], [place] [address]JV: 03/08/2018 Secondary NOT GIVENUNK [place] Insurance:SELF PAY [facility] Number: Effective Repository Date:2018-01-25 03/08/2018 ANAHI L Primary ANAHI L [place] [id number] S Insurance:ANTHEMPolic HUDGINSDOB: Community [place], y Number: [id number] Healthcare Facility [address]Zsl: [id number] Repository Date:2986-67-50ZB [address] () [address], [place] [address]CU: 03/08/2018 Secondary NOT GIVENUNK [place] Insurance:SELF PAY [facility] Number: Effective Repository Date:2018-03-08 03/08/2018 ANAHI L Primary ANAHI L [place] [id number] S Insurance:ANTHEMPolic HUDGINSDOB: Community [facility]K [place] Number: [id number] Healthcare Facility [address]Jsp: [id number] Repository Date:1784-36-20[address] () [id number], [place] [address]RT: 03/08/2018 Secondary NOT GIVENUNK Miquel Insurance:SELF PAY [facility] Number: Effective Repository Date:2018-02-15 02/15/2018 ANAHI L Primary ANAHI L [place] [id number] Insurance:ANTHEMPolic HUDGINSDOB: Community FUNK [place], y Number: [id number] Healthcare Facility [address]Huw: [id number] Repository Date:9253-21-53[address]X [address] () [id number] [place] [address]OF: 02/15/2018 Secondary NOT GIVENUNK Miquel Insurance:SELF PAY [facility] Number: Effective Repository Date:2018-02-05 02/03/2018 ANAHI L Primary ANAHI L Miquel [id number] S Insurance:ANTHEMPolic HUDGINSDOB: Community FUNK [place], y Number: [id number] Healthcare Facility [address]Xpy: [id number] Repository Date:1890-45-20[address] () [id number], [place] [address]JF: 02/03/2018 Secondary NOT GIVENUNK [place] Insurance:SELF PAY [facility] Number: Effective Repository Date:2018-02-03 01/12/2018 Anahi L Primary Anahi L [place] [id number] [address] Insurance:ANTHEMPolic HudginsDOB: [address] Number: [id number] Healthcare Facility [address]Ifx: [id number] Repository Date:8261-11-01[address] () 538[address]XTNCKYA, [place] [address]ZK: 01/12/2018 Secondary NOT GIVENUNK [place] Insurance:SELF PAY [facility] Number: Effective Repository Date:2018-01-12 11/16/2017 Anahi L Primary Anahi L [place] [id number] S Insurance:ANTHEMPolic HudginsDOB: [address] Number: [id number] Healthcare Facility [address]Pll: [id number] Repository Date:7406-58-05[address] () [id number] [place] [address]QD: 11/16/2017 Secondary NOT GIVENUNK Miquel Insurance:SELF PAY [facility] Number: Effective Repository Date:2017-11-16
== END ==
PROVIDERS: Family Provider Family Medicine; PCP Family Medicine; Referring Provider Internal Medicine Critical Care Medicine; Visit Provider Internal Medicine Critical Care Medicine
DX: I26.99 Other pulmonary embolism without acute cor pulmonale (principal)
CPT/HCPCS: 93306

== ENCOUNTER → 2018-03-22 09:37 | Outpatient (CLI) | payer BC, SELFPAY ==
[2018-02-15 06:44] VITALS: BMI 28.3
--- NOTE | 2018-03-22 09:44 | BI_ITS ---
MAMMOGRAPHY - BILATERAL SCREENING REASON FOR EXAM: Female, 67 years old. Routine annual screening examination. PERTINENT HISTORY: Non-contributory. Personal history of ovarian carcinoma. TECHNIQUE: Digital bilateral breast asim (3D mammographic acquisition) in the CC and MLO projections. 2-D mediolateral oblique (MLO) and craniocaudad (CC) views of both breasts were obtained. CAD: Full Field Digital Mammography with Computer Added Detection was performed. COMPARISON: Comparison is made with prior study dated March 16, 2017 and February 26, 2016. FINDINGS: Breast Composition: There are scattered areas of fibroglandular density. There are no dominant masses or suspicious calcifications. No other significant abnormalities are identified. There has been no significant change since the prior study. BI/SCREENING MAMM (CAD), BILAT IMPRESSION: Stable bilateral screening mammogram. Yearly follow-up mammogram recommended. (A) ASSESSMENT CATEGORY: BIRADS Category 1: Negative. A letter regarding these results will be sent to the patient by the facility within 30 days. Approximately 10% of breast cancers are not detected by mammography. A normal mammogram should not delay biopsy of a clinically suspicious abnormality. [id number] Electronically Signed: Haseeb Jacobo MD at 12:39 EST Tel [phone], Service support ,
--- OUTSIDE RECORDS SUMMARY | 2018-05-08 03:19 | XMS RPT_ITS ---
:1950 Author Organization [place] Support Name Relationship Address Phone CHARLESRIV Unavailable [address] + [place] [address] JOSE AURELIANO Unavailable [address] + [place] [address] DIMITRY BEAVER Unavailable [address] + [place] [address] [address] + [place] [address] JOSE AURELIANO Unavailable [address] + [place] [address] DIMITRY BEAVER Unavailable [address] + [place] [phone] CHARLESRIV Unavailable [address] + [place] [phone] JOSE AURELIANO Unavailable [address] + [place] [address] DIMITRY BEAVER Unavailable [address] + [place] [phone] CHARLESRIV Unavailable [address] + [place] [address] JOSE AURELIANO Unavailable [address] + [place] [address] DIMITRY BEAVER Unavailable [address] + [place] [phone] CHARLESRIV Unavailable [address] + [place] [address] JOSE AURELIANO Unavailable [address] + [place] [address] DIMITRY BEAVER Unavailable [address] + [place] [phone] CHARLESRIV Unavailable [address] + [place] [address] JOSE, AURELIANO Unavailable [address] + [place] [address] MAUREEN BEAVERIE Unavailable [address] + [place] [address] [address] + [place] [address] JOSE, AURELIANO Unavailable [address] + [place] [address] MAUREEN BEAVERIE Unavailable [address] + [place] [address] [address] + [place] [address] JOSE, AURELIANO Unavailable [address] + [place] [address] MAUREEN BEAVERIE Unavailable [address] + [place] [address] [address] + [place] [address] JOSE, AURELIANO Unavailable [address] + [place] [address] MAUREEN BEAVERIE Unavailable [address] + [place] [address] [address] + [place] [address] JOSE, AURELIANO Unavailable [address] + [place] [address] MAUREEN BEAVERIE Unavailable [address] + [place] [address] [address] + [place] [address] JOSE, AURELIANO Unavailable [address] + [place] [address] SARANYA DIMITRY Unavailable [address] + [place] [address] Care Team Providers Name Role Phone NEELAM DAVIS Attending Unavailable NEELAM DAVIS Referring Unavailable Chava Ramirez Attending Unavailable Chava aRmirez Referring Unavailable Arvin Perla Attending Unavailable Chava Ramirez Referring Unavailable Chava Ramirez Attending Unavailable Luis A Nino Referring Unavailable Trung, Luis A Attending Unavailable Luis A Nino Primary Care Unavailable Luis A Nino Attending Unavailable Nino, Luis A Referring Unavailable Nino, Luis A Primary Care Unavailable Ranney, Christopher Attending Unavailable Ranney, Christopher Referring Unavailable Nino, Luis A Primary Care Unavailable Nino, Luis A Primary Care Unavailable Ungur, Remus Attending Unavailable James, Chava Attending Unavailable Nino, [...] ATTENDING STATUS SOURCE 03/13/2018 Unknown S46.011D - Strain Bryan, Active [facility] rotator cuff of Repository right shoulder, subsequent encounter / S46.011D(ICD-10) 03/23/2018 Unknown I26.99 - Other James, Chava Active [place] pulmonary [facility] embolism without Hospital acute cor Repository pulmonale / I26.99(ICD-10) 02/03/2018 Unknown R07.9 - Chest Ungrashaad, Rafaela Active [facility] pain, unspecified Community / R07.9(ICD-10) Hospital Repository 01/12/2018 Unknown M25.511 - Pain in Luis A Nino Active [place] right shoulder / Community M25.511(ICD-10) Hospital Repository 01/04/2018 Active Unknown / NEELAM DAVIS Active [facility] UNK(Unknown) [facility] Repository PROCEDURES PROCEDURES No Procedure Records FoundRESULTS RESULTS OBSOLETE Observed: 04/30/2018 Status: COMPLETED Source: [place] 12:00 AM [facility] REPOSITORY Refill (TAMMY) ANAHI PLATT ([id number]) 1950 F Date Time Provider Department 04/30/18 NEELAM DAVIS During your visit today, we recorded the following information about you: Allergies As of Date: 04/30/2018 Noted Allergy Reaction NORVASC (AMLODIPINE BESYLATE) 08/17/2010 14 - Other: See Comments Comments: edema Date Reviewed: 01/04/2018 Reviewed by: Marlin Thomas MA - Fully Assessed Reason for Visit: Refill Request [94] Order(s):carvedilol (COREG) 3.125 mg tabletTAKE 1 TABLET TWICE A DAYDisp: 180 tabletRfl: 3 Prescriptions as of 04/30/2018 Sig: CARVEDILOL 3.125 MG TABLET TAKE 1 TABLET TWICE A DAY AMLODIPINE 2.5 MG TABLET Take 1 tablet by mouth once d* SPIRONOLACTONE 25 MG TABLET TAKE 1 TABLET DAILY RAMIPRIL 10 MG CAPSULE TAKE 1 CAPSULE DAILY SIMVASTATIN 20 MG TABLET TAKE 1 TABLET DAILY AT BEDTIME HYDROCHLOROTHIAZIDE 12.5 MG C* TAKE 1 CAPSULE DAILY * GLUCOSAMINE TUNEXKKYMXRH-OV-DSL* Take 1 tablet by mouth once d* * B YGGWNNF-QLD-XZ COMB3-AO CB4* Take 1 tablet by mouth once d* * MULTI-VITAMIN ORAL Take 1 tablet by mouth once d* Problem List As Of Date 04/30/2018 Noted Resolved HTN (hypertension) [I10] INVALID FOR* Blood in stool [K92.1] INVALID FOR*02/06/2015 Prescriptions ordered this encounter Disp Refills Start End CARVEDILOL 3.125 MG TABLET 180 * 3 04/30/2018 Sig: TAKE 1 TABLET TWICE A DAY Medications Discontinued During This Encounter carvedilol (COREG) 3.125 mg tablet 180 * 3 05/22/2017 04/30/2018 Route: ORAL Sig: Take 1 tablet by mouth twice daily. Disc: Reason for discontinue is not on file. Encounter Status:Closed by MARLIN THOMAS MA on 04/30/18 PULMONARY VISIT REPORT Observed: 04/27/2018 Status: F Source: [place] 9:20 AM [facility] REPOSITORY [facility] Pulmonary Medicine of [address] [place] [address] OFFICE VISIT Date of Service: 04/27/18 MR#: [id number] Acct: [id number] Name: ANAHI PLATT Rep #: [id number] : 1950 Provider: Chava Ramirez MD Age/Sex: 67/F Location: BMS.PMW Status: Signed Assessment AND Plan Problems 1. 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 Patient appears to be tolerating this well. Echocardiogram does not show significant pulmonary hypertension. Patient's pulmonary function test shows normal DLCO. After review of the risks, benefits and alternatives, patient would like to follow-up on an as-needed basis. Patient will need to have anticoagulation refilled by her primary care physician or cardiology. Lifelong anticoagulation. No further testing without new symptomatology. Plan Detail Follow Up PRN HPI 1 M FU: Chief Complaint: Follow-up test results Details: Patient is a 67-year-old female, currently under the care of Dr. Nino, who presents for follow-up secondary to test results. Since last visit, patient denies any ER visits, hospitalizations or prednisone burst. Overall, patient feels she is back to her baseline and doing well. Patient reports that she has been attempting weight loss through dietary modification. Patient has not been able to exercise much given that ijeoma chi that she did have her baseline is aggravating her right shoulder pain. Patient states that she will try to increase her activity, but she is happy with her weight loss at this time. Patient denies any chest pain, abdominal pain, nausea or vomiting. Patient is not using any inhalers at this time. Patient is on anticoagulation, but denies any complications, hemoptysis, melena and hematochezia. Patient denies any other side effects of the medication at this time. Patient is followed by cardiology at baseline. Patient denies any cough Testing personally reviewed with the patient Echocardiogram (03/09/2018): EF 65%. Mild mitral annular calcification. Mild increase in right ventricular systolic pressure at 28 mmHg. Complete PFT (03/08/2018): Normal PFT (FVC 104%, FEV1 104%, TLC 106%, DLCO 89%) HPI Comments Details: Intake Vital Signs04/27/18 Height 5 ft 4 in 04/27/18 Weight: 70.307 kg Intake Visit Reasons: 1 M FU Accompanied by: Self Allergies No Known Allergies Allergy (Verified 04/27/18 08:41) Medications Amlodipine [Norvasc] 2.5 mg PO DAILY 02/03/18 [History Confirmed 04/27/18] Carvedilol [Coreg (Beta Sonya)] 3.125 mg PO BID 02/03/18 [History Confirmed 04/27/18] Glucosam/MSM/Chondroit/Vit D3 [Sv Glucosamine Chondroitin Tab] 2 ea PO DAILY 02/03/18 [History Confirmed 04/27/18] Hydrochlorothiazide 12.5 mg pe PO DAILY 02/03/18 [History Confirmed 04/27/18] Ramipril 10 mg PO DAILY 02/03/18 [History Confirmed 04/27/18] Simvastatin [Zocor] 20 mg PO QHS 02/03/18 [History Confirmed 04/27/18] Spironolactone 1 tab PO DAILY 02/03/18 [History Confirmed 04/27/18] Vitamin B Complex/Folic Acid [Super B Maxi Complex Caplet] 0.4 mg PO DAILY 02/03/18 [History Confirmed 04/27/18] apixaban 5 mg tablet 5 mg PO BID #180 tab 02/15/18 [Rx Confirmed 04/27/18] PFSH Medical History Venous thrombosis (Chronic) Malignant neoplasm of ovary (Chronic) Benign hypertension (Chronic) Pulmonary embolism (Acute) H/O: hysterectomy (Resolved) Surgical History ABD ablation (Resolved) H/O bilateral oophorectomy (Resolved) Family History Father Hypertension Heart disease Prostate CA Mother Hypertension Grandmother Goiter Social History household members: children housing: house current occupational status: employed current occupation: [employer] pets and animals: Yes pets and animals: [...] Nose Throat Mouth: Positive hearing normal; negative hard of hearing, hoarseness, dry mouth in morning, change in vision, itchy eyes, eye pain, swallowing Difficulty, ear pain, nose bleed, headache(s), mouth pain, nasal congestion, nasal discharge, post nasal drip, sinus pain, sinus pressure, sore throat or other Cardio Cardiovascular: Negative chest pain, chest pain at rest, chest pain with activity, irregular heart rhythm, edema, shortness of breath when lying down, palpitations, murmur or other Resp Respiratory: Positive as per HPI; negative [...] other Skin/Breast Skin/Breast: Negative dry skin, itching, rash, unusual bruising, breast lump or other Neuro Neurological: Negative restless legs, confusion, weakness or other Psych Psychocological: Negative abnormal sleep pattern, anxiety, thoughts of hurting self/others, hopelessness or other Lymph Lymphatic: Negative easy bleeding, easy bruising, swollen lymph nodes or other Exam Const Constitutional: Positive conversant, cooperative, in [...] abnormality or cataract present Ears Ear: Positive external ears normal and hearing normal; negative hard of hearing Nose Nose: Positive external nose normal, septum normal and no nasal discharge; negative nasal polyp or epistaxis Mouth Mouth: Positive oral mucosae normal, no lesions, good dentition and posterior oropharynx is adequate; negative malodorous breath, oral thrush present or post nasal drip Mallampati Score: II: Mallampati Score Neck Neck: [...] rhythm, S1 normal and S2 normal; negative rub, gallop or murmur GI GI: Positive normal to inspection and normal bowel sounds; negative distended, ascites or epigastric tenderness Genitourinary: Positive deferred Musc Musculoskeletal: Positive steady gait; negative using an assistive device for ambulation, kyphosis or scoliosis Skin Pulmonary Skin Exam: Positive intact; negative lesion, ulcers, erythema, dermal atrophy or rash Pulses Pulse: Yes radial pulses present Extremities [...] affect Coding Level of Care Code Off vis,est,level 3 Diagnoses 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 04/27/18 0920 <Electronically signed by Chava Ramirze MD> Date Chava Ramirez MD Cosigner Signature: Date (if applicable) CC: Luis A Nino MD SCREENING MAMM (CAD), Observed: 03/22/2018 Status: F Source: [facility] 9:44 AM [facility] REPOSITORY [facility] Imaging Services [address] [place] [address] SCREENING MAMM (CAD), BILAT MR#: [id number] Acct: [id number] Name: ANAHI PLATT Eli Rep #: [id number] : 1950 F 67 From: Haseeb Jacobo MD PCP: Luis A Nion MD Status: REG [facility] Study: SCREENING MAMM (CAD), BILAT Date of Exam: 03/22/18 Exam# [id number] Ordering Dr: Luis A Nino MD MAMMOGRAPHY [...] delay biopsy of a clinically suspicious abnormality. [id number] Electronically Signed: Haseeb Jacobo MD at 12:39 EST Tel [phone], Service support , CC: Luis A Nino MD Cable Tower Operator: Signed ECHOCARDIOGRAM COMPLETE Observed: 03/09/2018 Status: F Source: [place] 6:09 PM [facility] REPOSITORY [facility] Cardiovascular Services [address] [place] [address] Echo Complete 03/09/18 0846 MR#: [id number] Acct: [id number] Name: ANAHI PLATT Rep #: [id number] : 1950 67 From: Arvin Perla MD Attending Dr: Chava Ramirez MD Status: REG CLI Ordering Dr: Chava Ramirez MD Date: 03/09/18 Location: [facility] Sex: F C Admitted: Reason For [...] MD; Luis A Nino MD Date Dictated: 03/09/1846 Date Transcribed: 03/09/181807 Cable Tower Operator: Signed PULMONARY FUNCTION Observed: 03/09/2018 Status: F Source: [place] REPORT COMP 5:45 AM [facility] REPOSITORY [facility] Pulmonary Services/Neurology [address] [place] [address] MR#: [id number] Acct: [id number] Name: ANAHI PLATT Rep #: [id number] : 1950 67 From: Chava Ramirez MD Referring Dr: Chava Ramirez MD Status: REG CLI Ordering Dr: Date: Location: [facility] Sex: F C COMPLETE PULMONARY FUNCTION TEST INTERPRETATION Brief HPI: Patient is a 67 year old female, currently under the care of myself, who presents to [facility] for complete pulmonary function tests secondary to [...] MD Date Dictated: 03/08/181107 Date Transcribed: 03/08/181107 Cable Tower Operator: HENRIETTA Signed PT D/C SUMMARY (1) Observed: 03/08/2018 Status: F Source: [place] 9:31 AM [facility] REPOSITORY [facility] Physical Therapy [facility] [address] [place] [address]. [address] [place], [place] [address] Fax REHABILITATION SERVICES DISCHARGE SUMMARY MR#: [id number] Acct: [id number] Name: ANAHI PLATT Rep #: [id number] : 1950 67 From: Funmi PADILLAT Referring Dr.: Rajiv Adams MD Status: REG [...] is back daily when she is sleeping. [place] like it got better but its still [...] to the right. Strength: Scap: fair minus, Glove Cutter: WNL, Elbow: flexion: 5/5, extn: 4+/5 with [...] please feel free to call me at [phone]. Thank you for the referral of this patient. Sincerely, Funmi Belcher <Electronically signed by Funmi Belcher DPT> 03/08/18 0931 CC: Rajiv Adams MD; Luis A Nino MD ELR Signed PULMONARY VISIT REPORT Observed: 02/15/2018 Status: F Source: [place] 12:14 PM [facility] REPOSITORY [facility] [place] [address] [place] [address] OFFICE VISIT Date of Service: 02/15/18 MR#: [id number] Acct: [id number] Name: ANAHI PLATT Rep #: [id number] : 1950 Provider: Chava Ramirez MD Age/Sex: 67/F Location: [facility] Status: Signed Assessment AND Plan Problems 1. 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 Patient has [...] Changed Plan Detail Follow Up 1 Month (BWA) HPI ER F/U: Chief Complaint: Recent PE [...] with ovarian cancer. Patient did have a [place] filter placed at that time, but this [...] 74.843 kg Intake Visit Reasons: ER F/U Broaching Machine Set Up Operator Required: No Accompanied by: Daughter Is patient [...] house current occupational status: employed current occupation: [employer] pets and animals: Yes pets and animals: [...] 02/03/2018 Status: F Source: [place] 12:38 PM [facility] REPOSITORY [facility] Medical Records Department [address] [place] [address] Discharge Instruction 02/03/18 1235 MR#: [id number] Acct: [id number] Name: ANAHI PLATT Rep #: [id number] : 1950 67 From: Rafaela Krishnan DO PCP: Luis A Nino MD Status: REG ER ED Disposition - Plan for ED Patient: Chief Complaint: Chest Other Prescriptions: Hydrocodone Bitart/Apap 5-325 [[place] 5MG-325MG] 1 tab PO Q4H PRN PRN [...] your Primary Care Provider. Call [facility] ([phone]) or report to the closest Emergency Room. Call 911 if necessary. 02/03/18 1238 <Electronically signed by Rafaela Krishnan DO> Date Rafaela Krishnan DO Cosigner Signature (If Indicated): Date CC: Luis A Nino MD EMERGENCY DEPARTMENT Observed: 02/03/2018 Status: F Source: [place] SUMMARY 12:35 PM [facility] REPOSITORY [facility] Medical Records Department [address] [place] [address] Emergency Department Summary 02/03/18 1232 MR#: [id number] Acct: [id number] Name: ANAHI PLATT Rep #: [id number] : 1950 67 From: Rafaela Krishnan DO [...] an ovarian cancer. Patient does have a Hermes filter in place.] Physical Examination: [HEENT-PERRLA, EOMI. [...] [Patient will be started on Eliquis and [place] for pain. Patient to follow-up with Dr. [...] infarct ] This note was generated with [employer] dictation software. It may contain incorrect words, [...] your Primary Care Provider. Call [facility] ([phone]) or report to the closest Emergency Room. Call 911 if necessary. 02/03/18 1235 <Electronically signed by Rafaela Krishnan DO> Date Rafaela Krishnan DO Cosigner Signature (If Indicated): Date CC: Luis A Nino MD PROTEIN S ANTIGEN Collected: 02/03/2018 Status: F Source: [place] 12:15 PM [facility] REPOSITORY TYPE CODE TESTS RESULT OUT OF RANGE REFERENCE UNITS LAB L3100.7100 60-150 % Normal PROTEIN 100 S,TOTAL Result Comment: This test was developed and its performance characteristics determined by [facility]. It has not been cleared or approved [...] 02/03/2018 Status: F Source: [place] 12:15 PM [facility] REPOSITORY TYPE CODE TESTS RESULT OUT OF RANGE REFERENCE UNITS LAB L3100.7300 60-150 % Normal PROTEIN C 110 Result Comment: Performed at: BN - [facility] [address] [id number] Ornamenter Hand: Ashvin Dubon MD, Phone: [phone] Performed at: CB - [facility] [address] [id number] Ornamenter Hand: Nilson Porter PhD, Phone: [phone] Performed at: - [facility] [place] [address] [address] [place], [place] [id number] Ornamenter Hand: Daly Shea MD, Phone: [phone] Performed By: #### L3100.7050, L3100.7300, L3100.8410, L3300.0500, L3410.2000, L4500.0100, L4500.2000, L4500.5000 #### [facility] (refer to report for specific site) refer to report for address and phone number ANTICARDIOLIPIN IGG, IGM Collected: 02/03/2018 Status: F Source: [place] 12:15 PM [facility] REPOSITORY TYPE CODE TESTS RESULT OUT OF [...] 02/03/2018 Status: F Source: [place] 12:15 PM [facility] REPOSITORY TYPE CODE TESTS RESULT OUT OF [...] Status: F Source: [place] 12:15 PM [facility] REPOSITORY TYPE CODE TESTS RESULT OUT OF [...] 02/03/2018 Status: F Source: [place] 12:15 PM [facility] REPOSITORY TYPE CODE TESTS RESULT OUT OF [...] Status: F Source: [place] ANALYSIS 12:15 PM [facility] REPOSITORY TYPE CODE TESTS RESULT OUT OF RANGE REFERENCE UNITS LAB L4500.2100 . Normal FACTOR Comment II,DNA Result Comment: NEGATIVE No mutation identified. Comment: A point mutation ([id number]) in the factor II (prothrombin) gene is [...] mutations. This assay detects only the prothrombin I73644J mutation and does not measure genetic abnormalities [...] health care providers to discuss results at [phone] ([phone]). Methodology: DNA analysis of the Factor II gene was performed by PCR amplification followed by restriction analysis. The diagnostic sensitivity is >99% for both. All the tests must be combined with clinical information for the most accurate interpretation. Molecular-based testing is highly accurate, but as in any laboratory test, diagnostic errors may occur. This test was developed and its performance characteristics determined by [facility]. It has not been cleared or approved by the Food and Drug Administration. Poort SR, et al. Blood. 1996; 88:8349-8202. Kortney ACOSTA. Circulation. 2004; 110:e15-e18. Audra I, et al. Arterioscler Thromb Vasc Biol. 1999; 19:700-703. Pb Thorne, PhD, [facility] Marlin Hunter, PhD, [facility] Pam Thornton MTerryS., PhD, FAC Maryana Lin, PhD, FAC Brigido Braun, PhD, [facility] Scott Jones, PhD, [facility] Performed By: #### L3100.7050, L3100.7300, L3100.8410, L3300.0500, L3410.2000, L4500.0100, L4500.2000, L4500.5000 #### [facility] (refer to report for specific site) refer to report for address and phone number FACT V LEIDEN Collected: 02/03/2018 Status: F Source: [place] MUTATION 12:15 PM [facility] REPOSITORY TYPE CODE TESTS RESULT OUT OF [...] the workup for venous thrombosis include the E21165O mutation in the factor II (prothrombin) gene, protein S and C deficiency, and antithrombin deficiencies. Anticardiolipin antibody and lupus anticoagulant analysis may be appropriate for certain patients, as well as homocysteine levels. Contact your local [facility] for information on how to order additional testing if desired. Genetic counselors are available for health care providers to discuss results at [phone] ([phone]). Methodology: DNA analysis of the Factor V [...] Thorne, PhD, FAC Marlin Hunter, PhD, FAC Pam Thornton MTerrySTerry, PhD, FAC Maryana Lin, PhD, FAC Brigido Braun, PhD, FAC Scott Jones PhD, FAC Performed By: #### L3100.7050, L3100.7300, L3100.8410, L3300.0500, L3410.2000, L4500.0100, L4500.2000, L4500.5000 #### [facility] (refer to report for specific site) refer to report for address and phone number CBC W/DIFF, AUTOMATED Collected: 02/03/2018 Status: F Source: [place] 10:33 AM [facility] REPOSITORY TYPE CODE TESTS RESULT OUT OF [...] Lymph 1.04 Performed By: #### L100.0100 #### [facility] Laboratory [address] [place], [place], [id number] BASIC METABOLIC Collected: 02/03/2018 Status: F Source: [place] PROFILE ([facility]) 10:33 AM [facility] REPOSITORY TYPE CODE TESTS RESULT OUT OF [...] GAP 9 Performed By: #### L500.2500 #### [facility] Laboratory [address] [facility] [place], [address] CTA CHEST W/WO Observed: 02/03/2018 Status: F Source: [place] CONTRAST 10:19 AM [facility] REPOSITORY [facility] Imaging Services [address] [place] [address] CTA Chest W/WO Contrast MR#: [id number] Acct: [id number] Name: ANAHI PLATT Eli Rep #: [id number] : 1950 F 67 From: Ross Scott MD PCP: Luis A Nino MD Status: REG ER Study: CTA Chest W/WO Contrast Date of Exam: 02/03/18 Exam# [id number] Ordering Dr: Rafaela Krishnan DO STUDY: CTA [...] Luis A Nino MD; Rafaela Krishnan DO Cable Tower Operator: Signed INITAL EVALUATION (1) Observed: 02/01/2018 Status: F Source: [place] - PT 10:59 AM [facility] REPOSITORY [facility] Physical Therapy [facility] [address] [place] [address]. [address] [place] [address] Fax REHABILITATION SERVICES INITIAL EVALUATION MR#: [id number] Acct: [id number] Name: ANAHI PLATT Rep #: [id number] : 1950 67 From: Funmi Belcher DPT Referring Dr.: Rajiv Adams MD Status: REG RCR [facility] [employer] Patient's Visit Information ANAHI [...] elbow. No issues with finger dexterity or phone banker strength. No increase in [place], blurred vision or dizziness. Sleep: disturbed- side sleeper and can lay on it if she gets it positioned just right. 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 Meds: HCTz, aldactone, ramapril, spironlactone, corig. Ijeoma Chi- 1x a week but has stopped [...] to the right. Strength: Scap: fair minus, Glove Cutter: WNL, Elbow: flexion: 4+/5 with discomfort, extn: [...] to be FAXED BACK to us at [phone] for Medicare purposes. Please let me know if there are questions or concerns regarding this plan of care. Physician Signature: Date: <Electronically signed by Funmi Belcher DPT> 02/01/18 1059 CC: Rajiv Adams MD; Luis A Nino MD ELR Signed For Medicare only, by signing this I certify the plan of care. Physicians Signature Date SHOULDER MIN 2 VIEWS Observed: 01/12/2018 Status: F Source: [place] 11:41 AM [facility] REPOSITORY [facility] Imaging Services [address] [place] [address] 24657 Shoulder min 2 Views MR#: [id number] Acct: [id number] Name: ANAHI PLATT Rep #: [id number] : 1950 F 67 From: Guillermo Martinez DO PCP: Luis A Nino MD Status: REG CLI Study: Shoulder min 2 Views Date of Exam: 01/12/18 Exam# [id number] Ordering Dr: Luis A Nino MD STUDY: [...] Guillermo Martinez DO at 9:39 EDT Tel [phone], Service support , CC: Luis A Nino MD Cable Tower Operator: Signed CNNURSE Observed: 01/04/2018 Status: COMPLETED Source: [place] 10:45 AM [facility] REPOSITORY Nurse Visit (CAWSTR) ANAHI PLATT ([id number]) 1950 F Date Time Provider Department 01/04/18 10:45 AM NURSE CARD ADMIN [facility] WSTR CAWSTR During your visit today, we recorded the following information about you: Marlin Thomas MA 01/08/2018 10:00 AM Signed EKG completed and given to Dr Davis for review. Marlin Thomas MA Referring Provider: NEELAM DAVIS [[id number]] Allergies As of Date: 01/04/2018 Noted Allergy [...] C* TAKE 1 CAPSULE DAILY * GLUCOSAMINE NXUKXPWTKFKN-HG-KMC* Take 1 tablet by mouth once d* * B ZUJGKSM-CLV-ZE COMB3-AO CB4* Take 1 tablet by mouth once d* * MULTI-VITAMIN ORAL Take 1 tablet by mouth once d* Problem List As Of Date 01/04/2018 Noted Resolved HTN (hypertension) [I10] INVALID FOR* Blood in stool [K92.1] INVALID FOR*02/06/2015 Visit Notes: >> Marlin Thomas MA Mon Jan 08, 2018 9:59 AM Status: Signed EKG completed and given to Dr Davis for review. Marlin Thomas ARTURO Encounter Status:Closed by CHANTELL MAMARLIN on 01/08/18 PROGRESS Observed: 01/04/2018 Status: COMPLETED Source: [place] 10:08 AM [facility] REPOSITORY HNO ID: [id number] Author: Neelam Davis Service: (none) Author Type: Physician Type: Progress Notes Filed: 01/04/2018 6:08 PM Note Text: PERTINENT CARDIAC HISTORY HTN - essential HL ADHERENCE TO GUIDELINES MAURO-I or ARB for HF with prior LVEF<40 (NQF 0081) - N/A ASA or Plavix for ASHD (NQF 0067) - N/A Beta sonya for ASHD with prior [place] or prior LVEF<40 (NQF 0070) - N/A [...] DAILY GLUCOSAM AND CHONDROIT-MV AND MIN3 (GLUCOSAMINE UVPDXKSQYRBO-XU-CDC3 ORAL) Take 1 tablet by mouth once daily. AA COMB.NO3/B/MV-AO4/MN/MIN AA (B DZCRDBU-ESE-JK COMB3-AO CB4 ORAL) Take 1 tablet by [...] MD EKG1 Observed: 01/04/2018 Status: F Source: [place] 9:46 AM [facility] [place] REPOSITORY NAME : ANAHI PLATT PID : [id number] : 1950 Gender : Female Race : [...] ms QTC Calculation(Bezet) : 372 ms P [place] : 20 degrees R [place] : 31 degrees T [place] : 45 degrees Test Reason : Location : 136 : [place] Overread By : NEELAM DAVIS MD Edited By : NEELAM DAVIS MD Referred By : RYAN Acquired by : CASSIDY RAYO Observed: 01/04/2018 Status: COMPLETED Source: [place] 9:45 AM [facility] REPOSITORY Office Visit (CAWSTR) ANAHI PLATT ([id number]) 1950 F Date Time Provider Department 01/04/18 9:45 AM NEELAM DAVIS E CAWSTR During your visit today, we recorded [...] N/A Beta sonya for ASHD with prior [place] or prior LVEF<40 (NQF 0070) - N/A [...] diet - lifestyle recommendation form CLINICAL IMPRESSION/PLAN: Anaih Platt is doing well. Blood pressure is [...] DAILY GLUCOSAM AND CHONDROIT-MV AND MIN3 (GLUCOSAMINE XQNDIKGEUNDV-JQ-BBI6 ORAL) Take 1 tablet by mouth once daily. AA COMB.NO3/B/MV-AO4/MN/MIN AA (B GAFIFYO-OJM-LS COMB3-AO CB4 ORAL) Take 1 tablet by [...] the following areas and commit to making tank terminal gauger changes. EAT A WHOLE FOOD, PLANT BASED [...] in your area. Referring Provider: NEELAM DAVIS [[id number]] Allergies As of Date: 01/04/2018 Noted Allergy Reaction NORVASC (AMLODIPINE BESYLATE) 08/17/2010 14 - Other: See Comments Comments: edema Date Reviewed: 01/04/2018 Reviewed by: Marlin Thomas MA - Fully Assessed Reason for Visit: Established Patient [175] Cmt: HTN Primary Visit Diagnosis:Hypertension, essential [I10] Order(s):ECG COMPLETE W INTERPRETATION [ECG01] Order #: [id number] FUTURE amLODIPine (NORVASC) 2.5 mg tabletTake 1 [...] C* TAKE 1 CAPSULE DAILY * GLUCOSAMINE PIURAJUMFMHE-PV-RNT* Take 1 tablet by mouth once d* * B GGXLBOO-HNB-PA COMB3-AO CB4* Take 1 tablet by mouth [...] the following areas and commit to making group home changes. EAT A WHOLE FOOD, PLANT BASED [...] F Source: [place] PROFILE (BMP) 8:26 AM [facility] REPOSITORY Order Comment: Order Date: 11/10/17 Order Info: [id number] - BMP Order Info: 0788-1 - LIVER Order Info: 46724-0 - LIPID TYPE CODE TESTS RESULT OUT [...] By: #### L500.2500, L500.3400, L500.4100, L501.9985 #### [facility] [address] [place], [address] LIVER PROFILE Collected: 11/16/2017 Status: F Source: [place] 8:26 AM [facility] REPOSITORY Order Comment: Order Date: 11/10/17 Order Info: [id number] - BMP Order Info: 0788-1 - LIVER Order Info: 88299-8 - LIPID TYPE CODE TESTS RESULT OUT [...] By: #### L500.2500, L500.3400, L500.4100, L501.9985 #### [facility] [address] [place], [place], [address] LIPID PROFILE Collected: 11/16/2017 Status: F Source: [place] 8:26 AM [facility] REPOSITORY Order Comment: Order Date: 11/10/17 Order Info: 0667-1 - BMP Order Info: 0788-1 - LIVER Order Info: [id number] - LIPID TYPE CODE TESTS RESULT OUT [...] By: #### L500.2500, L500.3400, L500.4100, L501.9985 #### [facility] [address] [place], [place], [address] HEMOGLOBIN A1C Collected: 11/16/2017 Status: F Source: [place] 8:26 AM [facility] REPOSITORY Order Comment: Order Date: 11/10/17 Order Info: 4548-4 - A1C TYPE CODE TESTS RESULT OUT OF RANGE REFERENCE UNITS LAB L501.9985 4.2-6.3 % Normal HGB A1C 5.5 Performed By: #### L500.2500, L500.3400, L500.4100, L501.9985 #### [facility] [address], [address] ALLERGIES ALLERGIES DATE TYPE / CODE NAME / CODE REACTION SEVERITY SOURCE 04/27/2018 Drug No Known Unknown [place] Allergy/416 Allergies/G841481 Community 370229(SNOM 388(RXNORM) Hospital ED CT) Repository 08/17/2010 DRUG AMLODIPINE OTHER: SEE C [facility] INGREDI/419 [facility] 012415(SNOM Repository ED CT) ENCOUNTERS ENCOUNTERS ADMIT/DISCHARGE ACCOUNT ADMITTING ENCOUNTER LOCATION SOURCE NUMBER CLASS 04/27/2018/04/27/19 [id number] Ambulatory BMSBuilding:B [place] [address].[facility] Repository 03/22/2018 [id number] Ambulatory [facility] Hospital ing:OPBI Repository 03/09/2018 [id number] Ambulatory BMSBuilding:W [facility] Repository 03/09/2018 [id number] Ambulatory [facility] Hospital ing:CVS Repository 03/08/2018/03/08/20 [id number] Ambulatory [address] ing:PT Repository 03/08/2018 [id number] Ambulatory BMSBuilding:W [facility] Repository 03/08/2018 [id number] Ambulatory [facility] Hospital ing:PSN Repository 02/15/2018/02/16/20 [id number] Ambulatory BMSBuilding:B [place] 18 MS.[facility] Hospital Repository 02/03/2018/02/04/20 [id number] Emergency [address] ing:ED Repository 01/12/2018 [id number] Ambulatory [facility] ing:MTRAD Repository 01/04/2018/01/06/20 [id number] Ambulatory [address] Repository 11/16/2017 [id number] Ambulatory [place] Miqu[facility] ing:MFPLAB Repository PAYERS PAYERS ENCOUNTER GUARANTOR PAYER SUBSCRIBER SOURCE 04/27/2018 ANAHI Benitez Primary ANAHI [id number] Insurance:ANTHEMPolic HUDGINSDOB: [facility] FUNK REGLA, y Number: [id number]-[facility] [address]Kcx: [id number] Repository Date:9460-65-65[address] () [address]QW[place], [place] [address]LJ: 04/27/2018 Secondary NOT GIVENUNK [place] Insurance:SELF PAY [facility] Number: Effective Repository Date:2018-04-24 03/22/2018 ANAHI L Primary ANAHI Benitez [place] [id number] S Insurance:ANTHEMPolic HUDGINSDOB: [facility], y Number: [id number]-[facility] [address]Hpi: [id number] Repository Date:5076-04-15[address] () [address]WRW[place], [place] [address]PG: 03/22/2018 Secondary NOT GIVENUNK [place] Insurance:SELF PAY [facility] Number: Effective Repository Date:2017-11-13 03/09/2018 ANAHI Benitze Primary ANAHI Lafleur [id number] S Insurance:ANTHEMPolic HUDGINSDOB: [facility], y Number: [id number]-Lea [facility] Hospital [address]Cpu: [id number] Repository Date:5558-99-18YA [address] () [address]ZFOQQVP, [place] [address]CJ: 03/09/2018 Secondary NOT GIVENUNK [place] Insurance:SELF PAY [facility] Number: Effective Repository Date:2018-03-09 03/09/2018 ANAHI L Primary ANAHI Lafleur [id number] S Insurance:ANTHEMPolic [facility] y Number: [id number]-[facility] Hospital [address]Pbq: [id number] Repository Date:2908-73-64BE [address] () [address]20986WPEKXJX, [place] [address]MU: 03/09/2018 Secondary NOT GIVENUNK [place] Insurance:SELF PAY [facility] Number: Effective Repository Date:2018-02-21 03/08/2018 ANAHI L Primary ANAHI L [place] [id number] S Insurance:ANTHEMPolic HUDGINSDOB: Community [place], y Number: [id number]-[facility] [address]Lia: [id number] Repository Date:5618-03-02[address] () [address]15[address]KMFZOII, [place] [address]PM: 03/08/2018 Secondary NOT GIVENUNK [place] Insurance:SELF PAY [facility] Number: Effective Repository Date:2018-01-25 03/08/2018 ANAHI L Primary ANAHI L [place] [id number] S Insurance:ANTHEMPolic HUDGINSDOB: Community [place], y Number: [id number]-Lea General Hospital [address]Hzi: [id number] Repository Date:5678-91-67WA [address] () [address]ZWGRFRD, [place] [address]NP: 03/08/2018 Secondary NOT GIVENUNK [place] Insurance:SELF PAY [facility] Number: Effective Repository Date:2018-03-08 03/08/2018 ANAHI L Primary ANAHI L [place] [id number] S Insurance:ANTHEMPolic HUDGINSDOB: Community [place], y Number: [id number]-Lea [facility] Hospital [address]Sva: [id number] Repository Date:3200-84-20FC [address] () [address]80727PXMRXNN, [place] [address]CJ: 03/08/2018 Secondary NOT GIVENUNK [place] Insurance:SELF PAY [facility] Number: Effective Repository Date:2018-02-15 02/15/2018 ANAHI L Primary ANAHI L [place] [id number] S Insurance:ANTHEMPolic HUDGINSDOB: Community [place], y Number: [id number]-Lea [facility] Hospital [address]Kmb: [id number] Repository Date:7802-53-89DX [address] () 820705QYIHQQQ, [place] [address]UR: 02/15/2018 Secondary NOT GIVENUNK [place] Insurance:SELF PAY [facility] Number: Effective Repository Date:2018-02-05 02/03/2018 ANAHI L Primary ANAHI L [place] [id number] S Insurance:ANTHEMPolic HUDGINSDOB: Community [place], y Number: [id number]-[facility] [address]Zyd: [id number] Repository Date:7681-61-83SW [address] () [address]75[address]SBPTEHX, [place] [address]NF: 02/03/2018 Secondary NOT GIVENUNK [place] Insurance:SELF PAY [facility] Number: Effective Repository Date:2018-02-03 01/12/2018 Anahi L Primary Anahi L [place] [id number] Insurance:ANTHEMPolic [place]DOB: [place] [address] Number: [id number]-[facility] [address]Rsl: [id number] Repository Date:9946-22-17BP [address] () 783703MBRVFLB, [place] [address]AA: 01/12/2018 Secondary NOT GIVENUNK [place] Insurance:SELF PAY [facility] Number: Effective Repository Date:2018-01-12 11/16/2017 Anahi L Primary Anahi L [place] [id number] S Insurance:ANTHEMPolic HudginsDOB: [place] [address], y Number: [id number]-Lea [facility] Hospital [address]Jia: [id number] Repository Date:4847-81-68TV [address] () [address]93[address]KCPSKLG, [place] [address]GA: 11/16/2017 Secondary NOT GIVENUNK [place] Insurance:SELF PAY [facility]: Effective Repository Date:2017-11-16
== END ==
PROVIDERS: Family Provider Family Medicine; PCP Family Medicine; Referring Provider Family Medicine; Visit Provider Family Medicine
DX: Z12.31 Encounter for screening mammogram for malignant neoplasm of breast (principal)
CPT/HCPCS: 77063; 77067

== ENCOUNTER 2018-06-01 10:19 | Outpatient (RCR) | payer BC, SELFPAY ==
[2018-04-27 08:40] VITALS: BMI 26.6
--- NOTE | 2018-11-15 09:05 | HP.PT.NRP ---
HP - Discharge Summary (1) - Patient Information CHRISTINA GARCIA was seen in my office for initial evaluation on . The following Plan of Care was established for this patient: This patient was last seen in our office . Pertinent comments regarding their Physical therapy will appear below: Discharge At this point I will be discontinuing this patient from physical therapy. I would be happy to see this patient again in the future if found appropriate by the physician. Thank you! RANDY KaufmanT
== END 2018-06-01 19:00 | disposition home or self-care (01) ==
LOC: PT 10:19
PROVIDERS: Family Provider Family Medicine; PCP Family Medicine; Referring Provider Family Medicine; Visit Provider Family Medicine
DX: M75.21 Bicipital tendinitis, right shoulder (principal)

== ENCOUNTER 2018-12-20 08:00 | Outpatient (RCR) | payer BC, SELFPAY ==
[2018-11-19 15:46] VITALS: BMI 26.6
--- NOTE | 2018-11-20 07:46 | HP.PTEVAL_ITS ---
Patient's Visit Information CHRISTINA GARCIA is a 68 year old F referred to Physical Therapy by Scott De La Fuente DO with a diagnosis of Right Shoulder Bursitis. Date of Evaluation: 11/20/18 Physical Therapist: Funmi Belcher DPT - Visit Plan Frequency: 2x /Week Duration: 4 Weeks Plan: Focus on end range of motion and scapular strength/stabilization- decrease impingement. 11/20/18 Postural Correction - Subjective Findings: Patient reports that she is still having problems the right shoulder- insidious onset about 2 years. Has been through therapy before, massage therapy, injections, medications and nothing seems to have lasting effects. Had another cortisone injection yesterday and has been living on [employer]. In the last 48 hours the worst is an 8/10 Agg: being the back and moving it in a certain way, lifting overhead. Eases: moving out of the position, TENS unit. Best: 1-2/10. Pain is located in the shoulder and raditates into the neck and down to the elbow. Also reports soreness in the shoulder blade and into her flank. Feels that it is really changing her life style and effecting her life. Is uncomfortable is all ADL's. Describes the pain as dull and achy most of the time but sharp/shooting when she uses it. Does have N/T in the right hand which is not new- was better after massage therapy. Reports that she had x-rays in 2018 but none recently. Sleep: hard to get comfortable. 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 PMHx: 11 years ago ovarian cancer- remission since then, HTN. DVT, Embolism Meds: HCTz, aldactone, ramapril, spironlactone, corig, eloquist. - Objective Posture: FH, RS- can correct with verbal cues but does not maintain. Gait: good arm swing and trunk rotation. Palpation: medial border of the scapula tender along upper trap, biciptal groove, and down to the elbow, tightness throughout cervical paraspinals- mild discomfort with suboccipital release. ROM: finger dexterity: WNL, Elbow: WNL, Shoulder: flexion and abduction limited at 160 degrees but can be taken into full with pain at end ranges.IR is full behind the back but is slow and painful. Cervical: WFL discomfort with SB to the right and rotation to the right. Strength: Scap: fair minus, Wash Driller Helper: WNL, Elbow: flexion: 4+/5 with discomfort, extn: 4/5 with discomfort, Shoulder: Flexion- 4-/5, extn: 4/5, abd/add: 4-/5 IR: 4-/5 ER:4-/5 significant pain with shoulder strength testing. Special Test: Neer: positive, Horne Toney: positive, Empty Can: positive, Cervical Distraction: no change in s/s - Goals Goal 1:: Patient will be I with HEP and progression Goal Time Frame: 4-6 Weeks Goal 2:: Patient will maintain proper posture t/o tx session to demo increased scap s/s. Goal Time Frame: 4-6 Weeks Goal 3:: Patient will demo 4+/5 strength in right shoulder Goal Time Frame: 4-6 Weeks Goal 4:: Patient will report 0/10 pain with all ADL's for 1 week Goal Time Frame: 4-6 Weeks - Rehabilitation Potential Physical Therapy Diagnosis: Patient presents with hypomobility- she has decreased ROM, strength and muscular endurance leading to poor posture and increased pain with ADL's Rehabilitation Potential: Fair - Anticipated Interventions Patient/Client Instruction: Educate patient on: Benefits of Fitness Program Therapeutic Exercise to Include: Strength training, Body mechanics, Postural training, Passive ROM, Active ROM, Scapular Strength/Stabilization For the Purpose of:: To improve muscle performance and motor function TENS: No - Has home unit Cryotherapy (ice pack, ice massage): Yes Thermo therapy (hot pack): Yes Ultrasound (thermal/non thermal): Yes Thank you for the opportunity to evaluate your patient. For Medicare and Medicare HMO plans, please review the plan of care and approve it. It will need to be FAXED BACK to us at [phone] for Medicare purposes. For Medicare only, by signing this I certify the plan of care. Please let me know if there are questions or concerns regarding this plan of care. Physician Signature: Date:
--- NOTE | 2018-12-20 09:05 | HP.PTDCSUM_ITS ---
HP - PT D/C Summary It has been my pleasure to treat CHRISTINA GARCIA under orders from Scott De La Fuente DO, for the diagnosis of Right Shoulder Bursitis for a total of 8 visit(s). Discharge Date: Please see the following information for a summary of their discharge status. - Subjective Subjective: Pt. cont. to have pain w/ ADL's & be in dicsomfort w/ shoulder at times. Reports to be performing HEP freq. - Pain R shoulder Pain Intensity (Out of 10): 0 - Overall Improvement % Improvement: 50 - Objective Objective/Function: Posture: FH, RS- can correct with verbal cues but does not maintain. Gait: good arm swing and trunk rotation. Palpation: medial border of the scapula tender along upper trap, biciptal groove, tightness throughout R cervical paraspinals. ROM: finger dexterity: WNL, Elbow: WNL, Shoulder: Flex./Abd. WFL w/ pain at end-range. IR is full behind the back but is slow & painful. Cervical: WFL discomfort with SB to the right and rotation to the r ight. Strength: Scap: fair, Care Management Coordinator: WNL, Elbow: flexion: 4+/5 with discomfort, extn: 4/5 with discomfort, Shoulder: Flexion- 4-/5, extn: 4/5, abd/add: 4-/5 IR: 4-/5 ER:4-/5 significant pain with shoulder strength testing. Special Test: Brittnier: positive, Ozzie Ziegler: positive, Empty Can: positive - Goals Goal 1:: Patient will be I with HEP and progression Goal Progress: Goal Met Goal 2:: Patient will maintain proper posture t/o tx session to demo increased scap s/s. Goal Progress: Progressing Goal 3:: Patient will demo 4+/5 strength in right shoulder Goal Progress: Progressing Goal 4:: Patient will report 0/10 pain with all ADL's for 1 week Goal Progress: Progressing - Plan Plan: Focus on end range of motion and scapular strength/stabilization- decrease impingement. 12/20/18 Referred to MD for further evaluation and testing - D/C Information If there are questions or concerns regarding this patient's physical therapy, please feel free to call me at [phone]. Thank you for the referral of this patient. Sincerely, Funmi Belcher, RANDYT
== END 2018-12-20 19:00 | disposition home or self-care (01) ==
LOC: PT 08:00
PROVIDERS: Family Provider Family Medicine; PCP Family Medicine; Referring Provider Orthopaedic Surgery; Visit Provider Orthopaedic Surgery
DX: M75.51 Bursitis of right shoulder (principal); M25.511 Pain in right shoulder
CPT/HCPCS: 97110; 97161; 97164

== ENCOUNTER → 2019-01-10 | Outpatient (CLI) | payer BC, SELFPAY ==
[2018-12-21 08:50] VITALS: BMI 26.6
--- NOTE | 2019-01-10 06:30 | MRI_ITS ---
STUDY: MRI RIGHT SHOULDER REASON FOR EXAM: Female, 68 years old. Pain. Limited range of motion. Impingement. TECHNIQUE: Standardized fat and water weighted pulse sequences were obtained in all 3 orthogonal planes. COMPARISON: X-ray January 12, 2018 FINDINGS: There is high-grade tear of the anterior distal supraspinatus tendon, series 6 image 15/20. Normal infraspinatus tendon. Normal subscapularis tendon. Normal teres minor tendon. Normal supraspinatus muscle. Normal infraspinatus muscle. Normal subscapularis muscle. Normal teres minor muscle. There is a small volume joint effusion of the glenohumeral joint. Normal humeral head and visualized proximal humerus. Normal biceps labral complex. There is tendinosis with thickening of the proximal long head of the biceps tendon, but without a demonstrated tear. There is tear of the superior labrum adjacent to the biceps anchor, series 5 image 11/20. Normal capsulo- ligamentous complex. Normal rotator interval. There is mild osteoarthritis of the acromioclavicular articulation. There is a Type II morphology (curved) acromion, with a neutral orientation. There is fluid distention of the subacromial bursa, consistent with mild subacromial-subdeltoid bursitis. Normal visualized coracohumeral and coracoacromial ligaments. Normal quadrilateral space. Normal axillary space. Normal deltoid muscle. Normal trapezius muscle. MRI/Upper Ext Joint Only(Routine) IMPRESSION: Rotator cuff tear of the supraspinatus tendon. Tendinosis of the proximal long head of the biceps. SLAP lesion with tear of the superior labrum. Joint effusion. Subacromial subdeltoid bursitis. Electronically Signed: Jerson Reaves MD at 8:26 EDT , Service support ,
[2019-01-10 08:23] LABS: Absolute Lymphocyte Count 1.11 X10^3/uL (0.83-4.51); Absolute Neutrophil Count 2.9 X10^3/uL (2.0-7.7); Basophil# 0.06 X10^3/uL; Basophil% 1.3 % (0-1); Eosinophil# 0.12 X10^3/uL; Eosinophils% 2.5 % (0-5); Hematocrit 43.9 % (37-47); Hemoglobin 14.6 g/dL (12.0-15.0); Lymphocyte # 1.11 X10^3/ul (4.0); Lymphocyte % 23.4 % (19-41); Mean Corp Hgb Conc 33.3 g/dL (32-36); Mean Corpuscular Hgb 31.2 pg (27.0-32.0); Mean Corpuscular Volume 93.8 fL (81-99); Mean Platelet Vol. 10.7 fl (6.2-12.0); Monocyte# 0.56 X10^3/uL; Monocyte% 11.8 % (0-10); NRBC Flagged by Analyzer 0 % (0-5); Neutrophil # 2.89 X10^3/uL (2.7-7.7); Neutrophil % 60.8 % (47-70); Platelet Count 277 K/mm3 (150-450); RBC Distribution Width CV 12.6 % (11.6-14.6); RBC Distribution Width SD 43.5 fl (35.1-43.9); Red Blood Count 4.68 M/mm3 (4.2-5.4); White Blood Count 4.8 K/mm3 (4.4-11.0)
[2019-01-10 08:56] LABS: Anion Gap 7 (5-15); BUN 17 mg/dL (7-18); BUN/Creat Ratio 18.3 RATIO (10-20); Calcium,Total 9.8 mg/dL (8.5-10.1); Chloride 105 mmol/L (98-107); Cholesterol 188 mg/dL (200); Creatinine, Serum 0.93 mg/dL (0.55-1.02); EST Glomerular Filtration Rate 64 mL/min (>60); Est Glom Filt Rate - Afr Amer 77 mL/min (>60); Glucose 103 mg/dL (74-106); High Density Lipoprotein 53 mg/dL; Potassium 4.1 mmol/L (3.5-5.1); Sodium Level 141 mmol/L (136-145); Triglycerides 131 mg/dL; Very Low Density Lipoprotein 26 mg/dL (5-40)
== END | disposition home or self-care (01) ==
PROVIDERS: Family Medicine; Family Provider Family Medicine; PCP Family Medicine; Referring Provider Orthopaedic Surgery; Visit Provider Orthopaedic Surgery
DX: M75.41 Impingement syndrome of right shoulder (principal); M75.51 Bursitis of right shoulder; I10 Essential (primary) hypertension; E78.00 Pure hypercholesterolemia, unspecified; Z85.43 Personal history of malignant neoplasm of ovary
CPT/HCPCS: 36415; 73221; 80048; 80061; 85025

== ENCOUNTER 2019-02-07 09:00 | Outpatient (RCR) | payer BC, SELFPAY ==
[2019-01-18 07:48] VITALS: BMI 28.6
--- NOTE | 2019-01-31 16:14 | HP.PTEVAL ---
Patient's Visit Information CHRISTINA GARCIA is a 68 year old F referred to Physical Therapy by Scott De La Fuente DO with a diagnosis of Acute Low back pain. Date of Evaluation: 01/25/19 Physical Therapist: Davin Quinn DPT - Visit Plan Frequency: 1x/Week Duration: 4-6 Weeks Plan: Start with TARAN, and core stability exercises. - Subjective Findings: Pt. is here today for her initial evaluation with diagnosis of acute low back pain. PT. reports having pain for 5 days now after mowing her lawn. She had intense pain to start, but is already doing much better. Pt. denies distal LE pain and no N/T in either LE. Pt. reports having increased pain with: lifting, carrying, prolonged sitting and prolongd standing. Decreases pain: supine lying. Pt. reports being 90% better overall. Pt. also denied muscle weakness in either LE. Pt. reports not being comfortable. Pt. has had an xray negative for fracture. Pt. was following up with physician about shoulder and questioned him on her low back pain. Pt. is hopeful to reduce symptoms futher to get back to all recreational activities without limitations. - Pain Lumbar spine Pain Intensity (Out of 10): 2 Pain Intensity Range: 1, 10 - Objective POSTURE: Pt. has slight flexed posture in stance, but minimal. Pt. has slight lateral shift to R side, but minimal. Pt. is able to correct with VC/TCing. PALPATION: Pt. has increased tenderness with spring testing to L4/L5 and slight tenderness to erector spine throuhgout lumbar spine. No SI joint pain, no piriformis pain. NEURO: normal throughout. ROM: Lumbar spine: flexion nil loss NE, ext min/nil loss mild increase NW, SB nil loss bilat NE, rotation min loss andrei increase NW. Pt. has tight HS and tight hip flexors bilaterally. MMT: Pt. has 4/5 strength throughout bilateral LEs and has fair- core strength. GAIT: Pt. has decent gait pattern, normal step length, normal wilbert. She does have slight lateral shift with correction. - Special Tests L/S Slump test left side: Negative L/S Slump test right side: Negative L/S Left Straight Leg Raise: Negative L/S Right Straight Leg Raise: Negative L/S Instability PA Test: Positive L/S Prone Instability Test: Positive - Goals Goal 1:: Pt. to be I with HEP. Goal Time Frame: 2-4 Weeks Goal 2:: Pt. to have increased core strength to fair without increase in symptoms. Goal Time Frame: 4-6 Weeks Goal 3:: Pt. to have normal spinal ROM without icnrease in symptoms. Goal Time Frame: 4-6 Weeks Goal 4:: Pt. to have no pain with sleeping. Goal Time Frame: 4-6 Weeks Goal 5:: Pt. to resume all ADLs without increase in symptoms. Goal Time Frame: 4-6 Weeks - Rehabilitation Potential Physical Therapy Diagnosis: Pt. has signs and symptoms consistent with acute low back pain. Pt. has slight directional preference for extension, but would also benefit from stability exercises to reduce stres on low back with all functional activities. Rehabilitation Potential: Excellent - Anticipated Interventions Patient/Client Instruction: Educate patient on: Condition, Plan of Care, Risk Factors, Benefits of Fitness Program For the Purpose of:: To facilitate caregiver knowledge, To improve self management, To prevent re-injury, To improve ability to perform tasks related to life management, To improve tolerance to ADL's Therapeutic Exercise to Include: Strength training, Power training, Endurance training, Body mechanics, Postural training, Flexibilty training, Dynamic Lumbar Stabilization, Praneeth Exercises, Scapular Strength/Stabilization For the Purpose of:: To decrease pain, To decrease swelling/inflammation, To increase ROM, To improve nutrient delivery to tissue, To increase oxygenation perfusion, To improve muscle performance and motor function Thank you for the opportunity to evaluate your patient. For Medicare and Medicare HMO plans, please review the plan of care and approve it. It will need to be FAXED BACK to us at [phone] for Medicare purposes. For Medicare only, by signing this I certify the plan of care. Please let me know if there are questions or concerns regarding this plan of care. Physician Signature: Date:
--- NOTE | 2019-02-07 09:53 | HP.PTDCSUM ---
HP - PT D/C Summary It has been my pleasure to treat CHRISTINA GARCIA under orders from Scott De La Fuente DO, for the diagnosis of Acute Low back pain for a total of 3 visit(s). Discharge Date: 02/07/19 Please see the following information for a summary of their discharge status. - Subjective Subjective: Pt. reports I am doing really well. I onl;y have symptoms if I walk to long and it is minimal.: Pt. reports being Hep compliant. 0/10 pain this date. - Pain Lumbar spine Pain Intensity (Out of 10): 0 - Overall Improvement % Improvement: 98 - Objective Objective/Function: Pt. is doing very well, she has full ROM of her lumbar spine, except min loss in extension with slight increase in symptoms druing this range, improved with reps. Pt. has overall improved symptoms with all activities. She has occassional increase in lumbar spine tightness if she sits over 1 hour or walks over 1 hour at one time. Pt. has been consistent with her exercises at home. Pt. will be DC from PT at this point in time. - Goals Goal 1:: Pt. to be I with HEP. Goal Progress: Goal Met Goal 2:: Pt. to have increased core strength to fair without increase in symptoms. Goal Progress: Goal Met Goal 3:: Pt. to have normal spinal ROM without icnrease in symptoms. Goal Progress: Goal Met Goal 4:: Pt. to have no pain with sleeping. Goal Progress: Goal Met Goal 5:: Pt. to resume all ADLs without increase in symptoms. Goal Progress: Goal Met - Plan Plan: Pt. to be DC to HEP at this point in time. - D/C Information Discharge Comments: Pt. was treated for her LBP with extension progression and with core stability exercise. Pt. is doing much better at this point in time and will be DC to HEP at this point in time. If there are questions or concerns regarding this patient's physical therapy, please feel free to call me at [phone]. Thank you for the referral of this patient. Sincerely, Davin Quinn DPT
== END 2019-02-07 19:00 | disposition home or self-care (01) ==
LOC: PT 09:00
PROVIDERS: Family Provider Family Medicine; PCP Family Medicine; Referring Provider Orthopaedic Surgery; Visit Provider Orthopaedic Surgery
DX: M54.5 Low back pain (principal)
CPT/HCPCS: 97110; 97161; 97530

== ENCOUNTER → 2019-03-28 15:03 | Outpatient (CLI) | payer BC, SELFPAY ==
[2018-12-21 08:50] VITALS: BMI 26.6
[2019-01-18 07:48] VITALS: BMI 28.6
--- NOTE | 2019-03-28 15:06 | BI_ITS ---
MAMMOGRAPHY - BILATERAL SCREENING REASON FOR EXAM: Female, 68 years old. Routine annual screening examination. PERTINENT HISTORY: Non-contributory. TECHNIQUE: Digital bilateral breast ganesh (3D mammographic acquisition) in the CC and MLO projections. 2-D mediolateral oblique (MLO) and craniocaudad (CC) views of both breasts were obtained. CAD: Full Field Digital Mammography with Computer Added Detection was performed. COMPARISON: Comparison is made with prior study dated March 22, 2018 and March 16, 2017. FINDINGS: Breast Composition: There are scattered areas of fibroglandular density. There are no dominant masses or suspicious calcifications. No other significant abnormalities are identified. There has been no significant change since the prior study. BI/SCREEN MAMM (CAD) W/GANESH BILAT IMPRESSION: Stable bilateral screening mammogram. Yearly follow-up mammogram recommended. (A) ASSESSMENT CATEGORY: BIRADS Category 1: Negative. A letter regarding these results will be sent to the patient by the facility within 30 days. Approximately 10% of breast cancers are not detected by mammography. A normal mammogram should not delay biopsy of a clinically suspicious abnormality. [id number] Electronically Signed: Haseeb Jacobo, at 8:45 EST , Service support ,
== END ==
PROVIDERS: Family Provider Family Medicine; PCP Family Medicine; Referring Provider Family Medicine; Visit Provider Family Medicine
DX: Z12.31 Encounter for screening mammogram for malignant neoplasm of breast (principal)
CPT/HCPCS: 77063; 77067

== ENCOUNTER → 2019-12-26 09:28 | Outpatient (CLI) | payer MEDICARE, BC, SELFPAY ==
[2019-10-30 14:03] VITALS: BMI 28.6
[2019-12-26 11:54] LABS: Absolute Lymphocyte Count 1.22 X10^3/uL (0.83-4.51); Absolute Neutrophil Count 2.3 X10^3/uL (2.0-7.7); Basophil# 0.03 X10^3/uL; Basophil% 0.7 % (0-1); Eosinophil# 0.08 X10^3/uL; Hematocrit 41.4 % (37-47); Hemoglobin 13.6 g/dL (12.0-15.0); Lymphocyte # 1.22 X10^3/ul (4.0); Lymphocyte % 30.3 % (19-41); Mean Corp Hgb Conc 32.9 g/dL (32-36); Mean Corpuscular Hgb 31.3 pg (27.0-32.0); Mean Corpuscular Volume 95.2 fL (81-99); Mean Platelet Vol. 11.2 fl (6.2-12.0); Monocyte# 0.39 X10^3/uL; Monocyte% 9.7 % (0-10); NRBC Flagged by Analyzer 0 % (0-5); Neutrophil % 57.1 % (47-70); Platelet Count 263 K/mm3 (150-450); RBC Distribution Width CV 13.3 % (11.6-14.6); RBC Distribution Width SD 47.1 fl (35.1-43.9); Red Blood Count 4.35 M/mm3 (4.2-5.4)
[2019-12-26 12:10] LABS: ALB/GLOB Ratio 1.3 RATIO (0.9-2.4); AST(SGOT) 16 U/L (15-37); Alanine Aminotransfer ALT/SGPT 25 U/L (13-56); Albumin, Serum 3.9 g/dL (3.2-5.0); Alkaline Phosphatase 50 U/L (45-117); Anion Gap 6 (5-15); BUN 18 mg/dL (7-18); BUN/Creat Ratio 22.5 RATIO (10-20); Calcium,Total 9.5 mg/dL (8.5-10.1); Chloride 109 mmol/L (98-107); Cholesterol 181 mg/dL (200); EST Glomerular Filtration Rate 75 mL/min (>60); Est Glom Filt Rate - Afr Amer 91 mL/min (>60); Globulin 3.1 g/dL (2.2-4.2); Glucose 100 mg/dL (74-106); High Density Lipoprotein 55 mg/dL; Potassium 4.4 mmol/L (3.5-5.1); Sodium Level 143 mmol/L (136-145); Triglycerides 123 mg/dL; Very Low Density Lipoprotein 25 mg/dL (5-40)
== END ==
PROVIDERS: PCP Family Medicine; Referring Provider Family Medicine; Visit Provider Family Medicine
DX: I10 Essential (primary) hypertension (principal)
CPT/HCPCS: 36415; 80053; 80061; 85025

== ENCOUNTER → 2020-04-01 07:20 | Outpatient (CLI) | payer MEDICARE, BC, SELFPAY ==
[2020-01-27 10:21] VITALS: BMI 29.0
--- NOTE | 2020-04-01 07:23 | BI_ITS ---
MAMMOGRAPHY - BILATERAL SCREENING REASON FOR EXAM: Female, 69 years old. Routine annual screening examination. PERTINENT HISTORY: Non-contributory. History of ovarian cancer and chemotherapy. TECHNIQUE: Digital bilateral breast ganesh (3D mammographic acquisition) in the CC and MLO projections. 2-D mediolateral oblique (MLO) and craniocaudad (CC) views of both breasts were obtained. CAD: Full Field Digital Mammography with Computer Added Detection was performed. COMPARISON: Comparison is made with prior examination dated 03/28/2019 and 03/22/2018. FINDINGS: Breast Composition: There are scattered areas of fibroglandular density. There are no dominant masses or suspicious calcifications. Stable small benign appearing bilateral axillary lymph nodes. No other significant abnormalities are identified. There has been no significant change since the prior study. BI/SCREEN MAMM (CAD) W/GANESH BILAT IMPRESSION: Stable bilateral screening mammogram. Yearly follow-up mammogram recommended. (A) ASSESSMENT CATEGORY: BIRADS Category 2: Benign. A letter regarding these results will be sent to the patient by the facility within 30 days. Approximately 10% of breast cancers are not detected by mammography. A normal mammogram should not delay biopsy of a clinically suspicious abnormality. [id number] Electronically Signed: Haseeb Jacobo, at 8:24 EST , Service support ,
== END ==
PROVIDERS: PCP Family Medicine; Referring Provider Family Medicine; Visit Provider Family Medicine
DX: Z12.31 Encounter for screening mammogram for malignant neoplasm of breast (principal)
CPT/HCPCS: 77063; 77067

== ENCOUNTER → 2020-07-02 12:56 | Outpatient (CLI) | payer MEDICARE, BC, SELFPAY ==
[2020-01-27 10:21] VITALS: BMI 29.0
[2020-07-02 11:40] LABS: Anion Gap 5 (5-15); BUN 23 mg/dL (7-18); BUN/Creat Ratio 24.2 RATIO (10-20); Calcium,Total 9.4 mg/dL (8.5-10.1); Chloride 101 mmol/L (98-107); Creatinine, Serum 0.95 mg/dL (0.55-1.02); EST Glomerular Filtration Rate 61 mL/min (>60); Est Glom Filt Rate - Afr Amer 74 mL/min (>60); Glucose 109 mg/dL (74-106); Potassium 4.1 mmol/L (3.5-5.1); Sodium Level 137 mmol/L (136-145)
--- NOTE | 2020-07-02 12:59 | CDU_ITS ---
Reason For Study: carotid artery disease Rt. Velocities/BP Lt. Velocities/BP Prox CCA 108.6/20.0 cm/sec. Prox CCA 91.3/13.9 cm/sec. Mid CCA 94.3/17.3 cm/sec. Mid CCA 81.4/13.9 cm/sec. Dist CCA 79.9/21.3 cm/sec. Dist CCA 71.6/12.6 cm/sec. Prox ICA 69.5/14.7 cm/sec. Prox ICA 60.5/17.6 cm/sec. Mid ICA 120.4/25.2 cm/sec. Mid ICA 133.9/38.9 cm/sec. Dist ICA 138.6/35.6 cm/sec. Dist ICA 108.3/27.9 cm/sec. Rt. ICA/CCA = 1.5. Lt. ICA/CCA = 1.6. Prox ECA 123.0/17.3 cm/sec. Prox ECA 107.2/10.2 cm/sec. Rt. Vert. 46.5/6.9 cm/sec. Lt. Vert. 66.3/18.8 cm/sec. Right Extracranial There is intimal thickening but no significant atherosclerotic plaque noted in the right common carotid artery. There is heterogeneous, smooth atherosclerotic plaque noted in the right internal carotid artery. The right internal carotid artery is very tortuous. There is intimal thickening but no significant atherosclerotic plaque noted in the right external carotid artery. Antegrade flow is noted in the right vertebral artery. Left Extracranial There is intimal thickening but no significant atherosclerotic plaque noted in the left common carotid artery. There is intimal thickening but no significant atherosclerotic plaque noted in the left internal carotid artery. There is intimal thickening but no significant atherosclerotic plaque noted in the left external carotid artery. Antegrade flow is noted in the left vertebral artery. Procedure Carotid Duplex 32894. This is a Carotid Duplex examination using B-mode, color flow and specral Doppler. The exam was diagnostic. Exam performed in department. Interpretation Summary Torturous right internal carotid artery with smooth plaque. Elevated velocities distally consistent with 50 to 69% stenosis. No hemodynamically significant plaque identified at this location Less than 50% stenosis right external carotid artery Intimal thickening but no significant plaque located within the left internal carotid artery with velocity elevation consistent with 50 to 69% stenosis. Less than 50% stenosis left external carotid artery Patent and antegrade vertebrals bilaterally The elevated right internal carotid artery identified on blood flow screening June 01, 2020 is not duplicated today and likely a consequence of vessel tortuosity Ordering Physician: Aimee Brown Performed By: Narciso Chin, RVT
== END ==
PROVIDERS: PCP Family Medicine; Referring Provider Physician Assistant Medical; Visit Provider Physician Assistant Medical
DX: I10 Essential (primary) hypertension (principal); R09.89 Other specified symptoms and signs involving the circulatory and respiratory systems
CPT/HCPCS: 80048; 93880

== ENCOUNTER → 2020-11-03 08:32 | Outpatient (CLI) | payer MEDICARE, BC, SELFPAY ==
[2020-11-03 10:21] LABS: Absolute Lymphocyte Count 1.22 X10^3/uL (0.83-4.51); Absolute Neutrophil Count 2.2 X10^3/uL (2.0-7.7); Basophil# 0.03 X10^3/uL; Basophil% 0.8 % (0-1); Eosinophil# 0.08 X10^3/uL; Hematocrit 43.1 % (37-47); Hemoglobin 14.1 g/dL (12.0-15.0); Lymphocyte # 1.22 X10^3/ul (0.83-4.51); Lymphocyte % 30.8 % (19-41); Mean Corp Hgb Conc 32.7 g/dL (32-36); Mean Corpuscular Hgb 30.9 pg (27.0-32.0); Mean Corpuscular Volume 94.3 fL (81-99); Mean Platelet Vol. 11.2 fl (6.2-12.0); Monocyte# 0.39 X10^3/uL; Monocyte% 9.8 % (0-10); NRBC Flagged by Analyzer 0 % (0-5); Neutrophil # 2.23 X10^3/uL (2.7-7.7); Neutrophil % 56.3 % (47-70); Platelet Count 276 K/mm3 (150-450); RBC Distribution Width CV 13.1 % (11.6-14.6); RBC Distribution Width SD 44.9 fl (35.1-43.9); Red Blood Count 4.57 M/mm3 (4.2-5.4)
[2020-11-03 10:29] LABS: International Normalized Ratio 2.3; Prothrombin Time (Protime)PT. 24.8 SECONDS (11.7-14.9)
[2020-11-03 10:48] LABS: ALB/GLOB Ratio 1.2 RATIO (0.9-2.4); AST(SGOT) 22 U/L (15-37); Alanine Aminotransfer ALT/SGPT 33 U/L (13-56); Albumin, Serum 4.2 g/dL (3.2-5.0); Alkaline Phosphatase 45 U/L (45-117); Anion Gap 4 (5-15); BUN 20 mg/dL (7-18); BUN/Creat Ratio 21.5 RATIO (10-20); Calcium,Total 9.6 mg/dL (8.5-10.1); Chloride 105 mmol/L (98-107); Cholesterol 185 mg/dL (200); Creatinine, Serum 0.93 mg/dL (0.55-1.02); EST Glomerular Filtration Rate 63 mL/min (>60); Est Glom Filt Rate - Afr Amer 76 mL/min (>60); Globulin 3.5 g/dL (2.2-4.2); Glucose 97 mg/dL (74-106); High Density Lipoprotein 55 mg/dL; Potassium 3.9 mmol/L (3.5-5.1); Protein, Total 7.7 g/dL (6.4-8.2); Sodium Level 138 mmol/L (136-145); Triglycerides 168 mg/dL; Very Low Density Lipoprotein 34 mg/dL (5-40)
== END ==
PROVIDERS: PCP Family Medicine; Visit Provider Family Medicine
DX: I82.409 Acute embolism and thrombosis of unspecified deep veins of unspecified lower extremity (principal); I10 Essential (primary) hypertension
CPT/HCPCS: 36415; 80053; 80061; 85025; 85610

== ENCOUNTER → 2021-02-08 10:50 | Outpatient (CLI) | payer MEDICARE, BC, SELFPAY ==
--- NOTE | 2021-02-08 10:54 | ECHOD_ITS ---
Reason For Study: VALVULAR HEART DISEASE Procedure This was a 2D Doppler, Color Flow transthoracic echocardiogram. The study was technically difficult. Exam performed in department. Left Ventricle Normal LV size. Left ventricular systolic function is normal. The estimated ejection fraction is 60 %. No evidence for diastolic dysfunction. No regional wall motion abnormalities noted. Right Ventricle Normal RV size. Normal systolic function. Atria The left atrium is mildly enlarged. Normal right atrium. No doppler evidence for ASD. Mitral Valve There is mild mitral annular calcification. Mild focal mitral valve calcification of the anterior leaflet. Mild (1+) mitral valve insufficiency. Tricuspid Valve Normal tricuspid valve. Trivial tricuspid valve insufficiency. Right ventricular systolic pressure estimated to be 29 mmHg. Aortic Valve Trisinus/trileaflet aortic valve. Mild focal aortic valve calcification. Trivial aortic valve insufficiency. Pulmonic Valve The pulmonic valve is not well visualized. Great Vessels Normal sized aortic root. Pericardium/Pleural No pericardial effusion. MMode/2D Measurements & Calculations LVIDd: 4.6 cm IVSd: 1.1 cm Ao root diam: 3.3 cm LVIDs: 2.6 cm LVPWd: 1.1 cm RVDd: 2.5 cm FS: 43.7 % LAV(MOD-bp): 54.1 ml LVAd ap4: 25.4 cm2 LVAd ap2: 24.6 cm2 LAV(MOD-bp) Indexed: 29.9 ml/m2 LVLd ap4: 7.6 cm LVLd ap2: 7.0 cm LAV(MOD-sp2): 51.9 ml EDV(MOD-sp4): 72.4 ml EDV(MOD-sp2): 72.6 ml LAV(MOD-sp4): 53.5 ml EDV(sp4-el): 72.4 ml EDV(sp2-el): 73.4 ml LVAs ap4: 13.8 cm2 LVAs ap2: 14.1 cm2 LVLs ap4: 5.6 cm LVLs ap2: 6.1 cm ESV(MOD-sp4): 31.0 ml ESV(MOD-sp2): 28.7 ml ESV(sp4-el): 28.9 ml ESV(sp2-el): 27.5 ml EF(MOD-sp4): 57.1 % EF(MOD-sp2): 60.4 % EF(sp4-el): 60.0 % SV(MOD-sp4): 41.3 ml SV(MOD-sp2): 43.9 ml SV(sp4-el): 43.4 ml LA dimension(2D): 4.0 cm LA A4 area: 18.3 cm2 RA A4 area: 13.0 cm2 Time Measurements MV dec time: 0.20 sec Doppler Measurements & Calculations MV E max adrian: 95.3 cm/sec Lat Peak E' Adrian: 7.4 cm/sec Med Peak E' Adrian: 7.1 cm/sec MV A max adrian: 74.0 cm/sec E/E' lat: 12.9 E/E' med: 13.5 MV E/A: 1.3 Ao V2 max: 126.9 cm/sec AI max adrian: 425.3 cm/sec LV V1 max: 112.0 cm/sec Ao max P.4 mmHg AI max P.4 mmHg LV V1 max P.0 mmHg AI dec slope: 212.3 cm/sec2 AI P1/2t: 586.7 msec PA V2 max: 82.3 cm/sec TR max adrian: 253.4 cm/sec TR max P.7 mmHg ECHO/Echo Complete Interpretation Summary The study was technically difficult. Left ventricular systolic function is normal. The estimated ejection fraction is 60 %. The left atrium is mildly enlarged. There is mild mitral annular calcification. Mild focal mitral valve calcification of the anterior leaflet. Mild (1+) mitral valve insufficiency. Trivial tricuspid valve insufficiency. Mild focal aortic valve calcification. Trivial aortic valve insufficiency. Right ventricular systolic pressure estimated to be 29 mmHg. No evidence for diastolic dysfunction. Ordering Physician: Arvin Perla Referring Physician: Luis A Vigil Performed By: Elizabeth Luna, RDCS, RVT
== END ==
PROVIDERS: PCP Family Medicine; Referring Provider Internal Medicine Cardiovascular Disease; Visit Provider Internal Medicine Cardiovascular Disease
DX: I26.99 Other pulmonary embolism without acute cor pulmonale (principal); I38 Endocarditis, valve unspecified
CPT/HCPCS: 93306

== ENCOUNTER → 2021-04-05 10:17 | Outpatient (CLI) | payer MEDICARE, BC, SELFPAY ==
--- NOTE | 2021-04-05 10:19 | BI_ITS ---
MAMMOGRAPHY - BILATERAL SCREENING 3-D TOMOSYNTHESIS REASON FOR EXAM: Female, 70 years old. SCREENING PERTINENT HISTORY: No significant family history. TECHNIQUE: 2-D mammograms and 3-D Tomosynthesis of the breast (s) were performed. CAD was performed. COMPARISON: 04/01/2020 FINDINGS: The breast composition is heterogeneously dense that can obscure small breast masses. Scattered benign calcifications are seen. No dense spiculated masses or suspicious microcalcifications are identified. No architectural distortion is identified. There is no skin thickening or retraction. There has been no significant change since the prior study. BI/SCRN MAMM (CAD)W/GANESH BILAT IMPRESSION: No mammographic signs of malignancy. Routine yearly mammograms recommended. ASSESSMENT CATEGORY: BIRADS Category 1: Negative. A letter regarding these results will be sent to the patient by the facility within 30 days. FOLLOW UP RECOMMENDATION: Yearly follow up mammogram recommended. (A) Approximately 10% of breast cancers are not detected by mammography. A normal mammogram should not delay biopsy of a clinically suspicious abnormality. Electronically Signed: Jose M Hauser MD at 11:45 EST Tel , Service support ,
== END ==
PROVIDERS: PCP Family Medicine; Referring Provider Family Medicine; Visit Provider Family Medicine
DX: Z12.31 Encounter for screening mammogram for malignant neoplasm of breast (principal)
CPT/HCPCS: 77063; 77067

== ENCOUNTER → 2021-08-12 | Outpatient (CLI) | payer MEDICARE, BC, SELFPAY ==
[2021-08-12 13:50] LABS: Bacteria 0 SEEN /hpf (None Seen); Mucous, Urine 0 SEEN /hpf (<or=2+); Red Blood Cells-Urine 0 SEEN /hpf (0-5); Squamous Epithelial Cells - UA 0 SEEN /hpf (5-10); White Blood Cells 0 SEEN /hpf (0-5)
[2021-08-12 15:13] LABS: Color, Urine Yellow (Yellow); Glucose, Dipstick Normal (Normal); Ketone-Dipstick Negative (Negative); Leukocyte Esterase-Dipstick 25 /ul (Negative); Nitrite-Dipstick Negative (Negative); Occult Blood-Urine Negative /ul (Negative); Protein-Dipstick Negative (Negative); Urine Bilirubin Dipstick Negative (Negative); Urine Clarity Clear (Clear); Urine Urobilinogen Normal (Normal); Urine pH 6.5 (5.0 - 8.0)
[2021-08-12 15:18] LABS: Absolute Lymphocyte Count 1.42 X10^3/uL (0.83-4.51); Absolute Neutrophil Count 2.4 X10^3/uL (2.0-7.7); Basophil# 0.03 X10^3/uL; Basophil% 0.7 % (0-1); Eosinophil# 0.09 X10^3/uL; Hematocrit 40.8 % (37-47); Hemoglobin 13.7 g/dL (12.0-15.0); Lymphocyte # 1.42 X10^3/ul (0.83-4.51); Lymphocyte % 31.9 % (19-41); Mean Corp Hgb Conc 33.6 g/dL (32-36); Mean Corpuscular Hgb 31.1 pg (27.0-32.0); Mean Corpuscular Volume 92.7 fL (81-99); Mean Platelet Vol. 11.4 fl (6.2-12.0); Monocyte# 0.49 X10^3/uL; NRBC Flagged by Analyzer 0 % (0-5); Neutrophil # 2.41 X10^3/uL (2.7-7.7); Neutrophil % 54.2 % (47-70); Platelet Count 275 K/mm3 (150-450); RBC Distribution Width CV 13.5 % (11.6-14.6); RBC Distribution Width SD 45.8 fl (35.1-43.9); White Blood Count 4.5 K/mm3 (4.4-11.0)
[2021-08-12 15:38] LABS: Hemoglobin A1c 5.8 % (3.8-5.6)
[2021-08-12 15:55] LABS: ALB/GLOB Ratio 1.1 RATIO (0.9-2.4); AST(SGOT) 22 U/L (15-37); Alanine Aminotransfer ALT/SGPT 29 U/L (13-56); Albumin, Serum 3.9 g/dL (3.2-5.0); Alkaline Phosphatase 44 U/L (45-117); Anion Gap 6 (5-15); BUN 22 mg/dL (7-18); BUN/Creat Ratio 24.1 RATIO (10-20); Calcium,Total 9.5 mg/dL (8.5-10.1); Chloride 106 mmol/L (98-107); Cholesterol 205 mg/dL (200); Creatinine, Serum 0.91 mg/dL (0.55-1.02); EST Glomerular Filtration Rate 64 mL/min (>60); Est Glom Filt Rate - Afr Amer 78 mL/min (>60); Globulin 3.6 g/dL (2.2-4.2); Glucose 95 mg/dL (74-106); High Density Lipoprotein 51 mg/dL; Protein, Total 7.5 g/dL (6.4-8.2); Sodium Level 138 mmol/L (136-145); Thyroid Stim Hormone (TSH) 1.85 uIU/mL (0.358-3.74); Triglycerides 136 mg/dL; Very Low Density Lipoprotein 27 mg/dL (5-40)
== END | disposition home or self-care (01) ==
LOC: MFPLAB 13:47
PROVIDERS: PCP Family Medicine; Referring Provider Family Medicine; Visit Provider Family Medicine
DX: I10 Essential (primary) hypertension (principal); R73.03 Prediabetes; E78.00 Pure hypercholesterolemia, unspecified
CPT/HCPCS: 36415; 80053; 80061; 81001; 83036; 84443; 85025

== ENCOUNTER → 2021-08-18 | Outpatient (CLI) | payer MEDICARE, BC, SELFPAY ==
--- NOTE | 2021-08-18 08:45 | CDU_ITS ---
Reason For Study: carotid stenosis Rt. Velocities/BP Lt. Velocities/BP Prox CCA 56.5/13.4 cm/sec. Prox CCA 100.8/20.0 cm/sec. Mid CCA 72.1/17.3 cm/sec. Mid CCA 76.0/9.5 cm/sec. Dist CCA 64.3/20.0 cm/sec. Dist CCA 74.7/18.6 cm/sec. Prox ICA 68.2/14.7 cm/sec. Prox ICA 70.8/18.6 cm/sec. Mid ICA 77.3/23.9 cm/sec. Mid ICA 126.6/37.1 cm/sec. Dist ICA 119.1/30.4 cm/sec. Dist ICA 94.3/29.1 cm/sec. Rt. ICA/CCA = 1.7. Lt. ICA/CCA = 1.4. Prox ECA 89.1/13.4 cm/sec. Prox ECA 68.2/8.2 cm/sec. Rt. Vert. 46.0/9.5 cm/sec. Lt. Vert. 38.1/13.5 cm/sec. Right Extracranial There is intimal thickening but no significant atherosclerotic plaque noted in the right common carotid artery. There is heterogeneous, smooth atherosclerotic plaque noted in the right internal carotid artery. The right internal carotid artery is very tortuous. There is intimal thickening but no significant atherosclerotic plaque noted in the right external carotid artery. Antegrade flow is noted in the right vertebral artery. Left Extracranial There is intimal thickening but no significant atherosclerotic plaque noted in the left common carotid artery. There is intimal thickening but no significant atherosclerotic plaque noted in the left internal carotid artery. There is intimal thickening but no significant atherosclerotic plaque noted in the left external carotid artery. Antegrade flow is noted in the left vertebral artery. Procedure Carotid Duplex 80152. This is a Carotid Duplex examination using B-mode, color flow and specral Doppler. The exam was diagnostic. Exam performed in department. VL/Carotid Duplex Ultrasound Interpretation Summary Minimal calcific shadowing plaque at the proximal right internal carotid artery with less than 50% stenosis Less than 50% stenosis right external carotid artery Intimal thickening of the left internal carotid artery with 50 to 69% stenosis. Less than 50% stenosis left external carotid artery Patent and antegrade vertebral arteries bilaterally Findings showed no advancement from the previous exam of July 02, 2020 and betzy vated velocities involving the right internal carotid artery are not currently identified Ordering Physician: Luis A Vigil Performed By: Narciso Chin RVT
== END | disposition home or self-care (01) ==
LOC: CVS 08:44
PROVIDERS: PCP Family Medicine; Referring Provider Family Medicine; Visit Provider Family Medicine
DX: I65.23 Occlusion and stenosis of bilateral carotid arteries (principal)
CPT/HCPCS: 93880

== ENCOUNTER 2021-09-14 05:50 | Day surgery (SDC) | payer MEDICARE, BC, SELFPAY ==
[2021-09-14] VITALS (7 sets, daily range): BP systolic 86–127; BP diastolic 54–75; PULSE 57–74; RESP 16–17; TEMP 36.3–36.6; O2SAT 95–99; BMI 28.0
[2021-09-14] MEDS: Lactated Ringers 1,000 ML 15 ML IV (05:55)
--- NOTE | 2021-09-14 07:00 | COLBX_PTH ---
PATIENT: CHRISTINA GARCIA LOC: EN U#:[id number] AGE/SX: 71/F ROOM: RE09/14/[address]: Dr. Maurice Carlos MD : [id number] BED: DIS: 09/14/2021 SPEC #: [id number] RECD: 09/14/21 11:05 STATUS: APRIL GUZMAN #: [id number] CARMEN: 09/14/21 07:[address]: Maurice Carlos DEPT: SURGICAL PATHOLOGY RECD BY: Urvashi Soliman ENTERED: 09/14/21 11:41 SP TYPE: COLON BX OTHR DR: Dr. Luis A Vigil MD Tissues: COLON BIOPSY Procedures: Surgery Specimen Level IV HEADER OPERATION: Colonoscopy with biopsy (MAC) PRE-OP DIAGNOSIS: Diarrhea TISSUE SUBMITTED: Random colon biopsy MICROSCOPIC DIAGNOSIS Colon, random biopsy: Fragments of colonic mucosa, no pathologic diagnosis. SJ:perry 09/15/2021 MICROSCOPIC DESCRIPTION Slides are reviewed. GROSS DESCRIPTION Received in fixative is one container labeled with the patient's name and designated random colon biopsy. The specimen consists of multiple irregular fragments of light chaparro soft tissue that in aggregate measure 1.5 x 0.5 x 0.1 cm. The specimen is totally submitted in one cassette. / SJ:rg 09/14/2021 TC:4 CPT: 89141
--- NOTE | 2021-09-14 07:00 | H&P.OPEN ---
HPI - General HPI Narrative CHRISTINA GARCIA, is a 71 F who presents for colonoscopy. The patient was seen about 2 months ago in the office with diarrhea and cough. The patient was started on a PPI which did resolve both. The patient is still here for colonoscopy to evaluate the colon for microscopic colitis or abnormalities. [facility] Medical History (Updated 09/14/21 @ 07:[address] Maurice Carlos MD) Alcohol use Arthritis Cardiology follow-up encounter Carotid artery stenosis DVT (deep venous thrombosis) Easy bruising Essential hypertension Gastric reflux History of DVT (deep vein thrombosis) History of echocardiogram History of steroid therapy Leg cramps Malignant neoplasm of ovary Non-smoker Post-menopausal Presence of IVC filter Pulmonary embolism Pure hypercholesterolemia Shortness of breath on exertion Valvular heart disease Wears contact lenses Wears glasses Home Medications ninlrmen-whg-eugsohdtb-vit D3 2 ea PO DAILY 02/03/18 [History Last Taken Unknown] multivitamin 1 tab PO DAILY 11/19/18 [History Last Taken Unknown] vitamin B complex 1 tab PO DAILY 03/23/20 [History Last Taken Unknown] carvedilol 3.125 mg tablet See Rx Instructions .ROUTE .COMPLEX #180 tab 03/02/21 [Rx Last Taken 09/14/21 05:00] ramipril 10 mg capsule See Rx Instructions .ROUTE .COMPLEX #90 cap 03/02/21 [Rx Last Taken 09/14/21 05:00] spironolactone 25 mg tablet See Rx Instructions .ROUTE .COMPLEX #90 tab 03/02/21 [Rx Last Taken Unknown] amlodipine 2.5 mg tablet 2.5 mg PO DAILY #90 tab 06/07/21 [Rx Last Taken 09/14/21 05:00] hydrochlorothiazide 25 mg tablet 12.5 mg PO DAILY #45 tab 06/07/21 [Rx Last Taken Unknown] warfarin 4 mg tablet 4 mg PO .COMPLEX #1 tab 06/08/21 [Rx Last Taken 09/09/21] omeprazole 40 mg capsule,delayed release See Rx Instructions .ROUTE .COMPLEX #60 cap 09/08/21 [Rx Last Taken 09/14/21 05:00] loratadine 10 mg PO DAILY 09/09/21 [History Last Taken Unknown] rosuvastatin 20 mg PO DAILY 09/09/21 [History Last Taken Unknown] Allergy/AdvReac Type Severity Reaction Status Date / Time benazepril [From Lotrel] AdvReac Severe ankle Verified 09/14/21 06:08 swelling and myalgias metoprolol [From Lopressor] AdvReac sluggish Verified 09/14/21 06:08 Family History (Updated 07/13/21 @ 14:39 by Verna Munguia) Father Hypertension Heart disease Prostate CA Mother Hypertension Grandmother Goiter Daughter Kidney disease Hypertension Cancer skin Surgical History ABD ablation H/O bilateral oophorectomy H/O: hysterectomy History of basal cell carcinoma excision (~04/2019) Social History household members: children housing: house current occupational status: employed current occupation: [employer] pets and animals: Yes pets and animals: dog(s) Smoking Status: Never smoker second hand exposure: No alcohol intake: current alcohol intake frequency: a few times a month Alcohol type: wine details: occasional substance use type: does not use caffeine: Yes Type: coffee Number of servings: 1 Past Medical/Surgical History Planned Operation Planned Operative Procedure/s: Colonoscopy Previous Hospitalizations/Surgeries HX Hospitalizations: No Any Problems With Anesthesia: No You/Your Family Experience Fever (Hyperthermia) With Anes: No Cholinesterase deficiency: No Cardiovascular Hx of Irregular Heartbeat and/or Afib: No Hx Heart Attack: No Hx Congestive Heart Failure: No Hx Rheumatic Fever: No Hx Hypertension: Yes (per pt, controlled on meds) Hx Pacemaker: No Respiratory HX of Shortness of Breath: No Hx Chronic Obstructive Pulmonary Disease (COPD): No Hx Asthma: No Hx Emphysema: No Hx Sleep Apnea: No Hx Respiratory Tract Infection/Cold (presently): No Do You Snore Loudly (louder than talking or can be heard): No Do You Often Feel Tired/ Fatigued/ Sleepy Dring Daytime?: No Has Anyone Observed You Stop Breathing During Sleep?: No Result (for STOP score): Negative Smoking Status: Never smoker Gastrointestinal Hx Gastroesophageal Reflux: No Hx Ulcer: No Special diet followed at home: No Neurological Hx Seizures: No Hx Multiple Sclerosis: No Hx Parkinson's Disease: No Hx Head/Neck Injury: No Hx Headaches: No Hx Back Injury/Pain: No Does patient have nerve stimulator: No Blood Disorder Hx Hepatitis: No Hx Anemia: No Reproduction Is Patient Lactating: No Musculoskeletal Hx Arthritis: Yes Hx Gout: No Endocrine Hx Diabetes: No Thyroid Disease: No Psycho/Social Hx Anxiety: No Hx Depression: No Hx Dementia: No Miscellaneous Hx Cancer: Yes (OVARIAN) Recent Exposure to Contagious Disease: No Allergies benazepril [From Lotrel] Adverse Reaction (Severe, Verified 09/14/21 06:08) ankle swelling and myalgias metoprolol [From Lopressor] Adverse Reaction (Verified 09/14/21 06:08) sluggish Discharge Is Pt Admitted From a [facility], or a Assisted: Yes Who Could Help: family After D/C, Where Do you Plan to Go: Return Home From the [facility] History Number of Risk Factors: 2 Vital Signs Vital Signs Vital Signs: 09/14/21 06:06 Temperature 97.8 F Temperature Source Temporal Pulse Rate 67 Respiratory Rate 16 Respiratory Pattern Normal Blood Pressure 127/75 H Blood Pressure Mean 92 Blood Pressure Source Monitor Blood Pressure Position Sitting Blood Pressure Location Right Arm Pulse Ox 99 Oxygen Delivery Method Room Air Weight Weight: 163 lb 2.273 oz Body Mass Index (BMI) 28.0 Physical Exam Const alert and oriented x3 Resp normal respiratory effort and normal air movement Cardio regular rate and regular rhythm GI soft to palpation, non-tender and non-distended Assessment & Plan Assessment/Plan (1) Diarrhea: QUALIFIERS: Diarrhea type: unspecified type Qualified Code(s): R19.7 - Diarrhea, unspecified PLAN: I explained endoscopy in detail to the patient. I explained the risks including but not limited to stroke or heart attack with anesthesia, perforation of the GI tract, bleeding, infection. I explained that any of these could necessitate further emergency surgery. The patient understands and all questions were answered sufficiently. The patient wishes to proceed with procedure. Maurice Carlos MD Pager: [facility] [address] [place] [address] [address] [place] [address] Office: Surgery Risks - Colonoscopy Risks Include but are not Limited To: Risks include but are not limited to: Bleeding, perforation requiring further surgery, inability to complete colonoscopy requiring barium enema.
--- NOTE | 2021-09-14 07:21 | OP.COLON_ITS ---
Patient Name: Anahi Platt Procedure Date: 09/14/2021 6:59 AM Date of : 1950 Age: 71 Procedure: Colonoscopy Indications: Chronic diarrhea Providers: Maurice Carlos MD Referring MD: Luis A Vigil Medicines: Monitored Anesthesia Care Patient Profile: This is a 71 year old female. Refer to note in patient chart for documentation of history and physical. Last Colonoscopy: 5 years ago. Complications: No immediate complications. Procedure: Pre-Anesthesia Assessment: - Prior to the procedure, a History and Physical was performed, and patient medications and allergies were reviewed. The patient's tolerance of previous anesthesia was also reviewed. The risks and benefits of the procedure and the sedation options and risks were discussed with the patient. All questions were answered, and informed consent was obtained. Prior Anticoagulants: The patient has taken no previous anticoagulant or antiplatelet agents. After reviewing the risks and benefits, the patient was deemed in satisfactory condition to undergo the procedure. After I obtained informed consent, the scope was passed under direct vision. Throughout the procedure, the patient's blood pressure, pulse, and oxygen saturations were monitored continuously. The Colonoscope was introduced through the anus and advanced to the cecum, identified by appendiceal orifice and ileocecal valve. The colonoscopy was performed without difficulty. The patient tolerated the procedure well. The quality of the bowel preparation was good. Scope In: 7:06:42 AM Scope Withdrawal Time 0 hours 6 minutes 26 seconds Scope Out: 7:18:05 AM Total Procedure Duration Time 0 hours 11 minutes 23 seconds Findings: The entire examined colon appeared normal on direct and retroflexion views. Biopsies for histology were taken with a cold forceps from the entire colon for evaluation of microscopic colitis. Impression: - The entire examined colon is normal on direct and retroflexion views. - Biopsies were taken with a cold forceps from the entire colon for evaluation of microscopic colitis. Recommendation: - Discharge patient to home. - Resume previous diet. - Continue present medications. - Await pathology results. - Repeat colonoscopy is not recommended due to current age (66 years or older) for screening purposes. Procedure Code(s): --- Professional --- 50695, Colonoscopy, flexible; with biopsy, single or multiple Diagnosis Code(s): --- Professional --- K52.9, Noninfective gastroenteritis and colitis, unspecified CPT copyright 2017 [employer]. All rights reserved. The codes documented in this report are preliminary and upon online community manager review may be revised to meet current compliance requirements. Maurice Carlos MD 09/14/2021 7:21:16 AM This report has been signed electronically. Number of Addenda: 0 Note Initiated On: 09/14/2021 6:59 AM
--- NOTE | 2021-09-14 07:22 | OP.CCLET_ITS ---
09/14/2021 Luis A Vigil [address] [place] [address] Re : Colonoscopy procedure for Anahi Platt Dear Dr. Vigil This procedure was performed on Tuesday, September 14, 2021. My impressions and recommendations are as follows: Impressions : - The entire examined colon is normal on direct and retroflexion views. - Biopsies were taken with a cold forceps from the entire colon for evaluation of microscopic colitis. Recommendations : - Discharge patient to home. - Resume previous diet. - Continue present medications. - Await pathology results. - Repeat colonoscopy is not recommended due to current age (66 years or older) for screening purposes. My findings are described in the full procedure note, which is enclosed. If I can be of further assistance, please feel free to contact me at Doctor phone number(s): , Work: . Sincerely, Maurice Carlos MD 09/14/2021 7:21:16 AM This report has been signed electronically.
[2021-09-14 08:46] LABS: INR Fingerstick 1.1; Prothrombin Time Fingerstick 13.6 SEC (11.7-14.9)
== END 2021-09-14 08:06 | disposition home or self-care (01) ==
LOC: EN 05:50 → AC 05:51
PROVIDERS: PCP Family Medicine; Referring Provider Family Medicine; Visit Provider Surgery
PROC: 0DJD8ZZ Inspection of Lower Intestinal Tract, Via Natural or Artificial Opening Endoscopic (ICD-10-PCS; CPT 45378; principal; 2021-09-14 06:55)
DX: R19.7 Diarrhea, unspecified (principal); I10 Essential (primary) hypertension; E78.00 Pure hypercholesterolemia, unspecified; K21.9 Gastro-esophageal reflux disease without esophagitis; Z86.718 Personal history of other venous thrombosis and embolism; Z86.711 Personal history of pulmonary embolism; Z79.01 Long term (current) use of anticoagulants; Z79.899 Other long term (current) drug therapy
CPT/HCPCS: 45380; 36416; 85610; 88305; J7120; J2405

== ENCOUNTER → 2021-11-06 | Outpatient (CLI) | payer MEDICARE, BC, SELFPAY ==
[2021-11-06 08:42] LABS: Bacteria 0 SEEN /hpf (None Seen); Mucous, Urine 0 SEEN /hpf (<or=2+)
[2021-11-06 09:28] LABS: Absolute Lymphocyte Count 1.16 X10^3/uL (0.83-4.51); Absolute Neutrophil Count 2.6 X10^3/uL (2.0-7.7); Basophil# 0.03 X10^3/uL; Basophil% 0.7 % (0-1); Eosinophil# 0.06 X10^3/uL; Eosinophils% 1.4 % (0-5); Hematocrit 42.7 % (37-47); Hemoglobin 14.6 g/dL (12.0-15.0); Lymphocyte # 1.16 X10^3/ul (0.83-4.51); Mean Corp Hgb Conc 34.2 g/dL (32-36); Mean Corpuscular Hgb 31.7 pg (27.0-32.0); Mean Corpuscular Volume 92.8 fL (81-99); Mean Platelet Vol. 10.4 fl (6.2-12.0); Monocyte# 0.42 X10^3/uL; Monocyte% 9.8 % (0-10); NRBC Flagged by Analyzer 0 % (0-5); Neutrophil # 2.63 X10^3/uL (2.7-7.7); Neutrophil % 61.1 % (47-70); Platelet Count 234 K/mm3 (150-450); RBC Distribution Width CV 13.1 % (11.6-14.6); RBC Distribution Width SD 44.7 fl (35.1-43.9); White Blood Count 4.3 K/mm3 (4.4-11.0)
[2021-11-06 09:37] LABS: ALB/GLOB Ratio 1.2 RATIO (0.9-2.4); AST(SGOT) 20 U/L (15-37); Alanine Aminotransfer ALT/SGPT 34 U/L (13-56); Albumin, Serum 3.9 g/dL (3.2-5.0); Alkaline Phosphatase 40 U/L (45-117); Anion Gap 4 (5-15); BUN 25 mg/dL (7-18); Calcium,Total 9.8 mg/dL (8.5-10.1); Chloride 105 mmol/L (98-107); Cholesterol 170 mg/dL (200); EST Glomerular Filtration Rate 58 mL/min (>60); Est Glom Filt Rate - Afr Amer 70 mL/min (>60); Globulin 3.3 g/dL (2.2-4.2); Glucose 106 mg/dL (74-106); High Density Lipoprotein 62 mg/dL; Potassium 3.8 mmol/L (3.5-5.1); Protein, Total 7.2 g/dL (6.4-8.2); Sodium Level 138 mmol/L (136-145); Triglycerides 111 mg/dL; Very Low Density Lipoprotein 22 mg/dL (5-40)
[2021-11-06 09:54] LABS: Hemoglobin A1c 6.1 % (3.8-5.6)
[2021-11-06 09:55] LABS: Color, Urine Yellow (Yellow)
[2021-11-06 09:56] LABS: Glucose, Dipstick NEGATIVE (Normal); Ketone-Dipstick Negative (Negative); Leukocyte Esterase-Dipstick 100 /ul (Negative); Nitrite-Dipstick Negative (Negative); Occult Blood-Urine 25 /ul (Negative); Protein-Dipstick Negative (Negative); Specific Gravity, Urine 1.005 (1.002-1.030); Urine Bilirubin Dipstick Negative (Negative); Urine Clarity Sl Cldy (Clear); Urine Urobilinogen Normal (Normal)
[2021-11-06 10:28] LABS: Red Blood Cells-Urine 0-5 SEEN /hpf (0-5); Squamous Epithelial Cells - UA 0-5 SEEN /hpf (5-10); White Blood Cells 0-5 SEEN /hpf (0-5)
== END | disposition home or self-care (01) ==
LOC: LAB 08:39
PROVIDERS: PCP Family Medicine; Visit Provider Family Medicine
DX: I10 Essential (primary) hypertension (principal); R73.02 Impaired glucose tolerance (oral)
CPT/HCPCS: 80053; 80061; 81001; 83036; 85025

== ENCOUNTER → 2021-11-22 | Outpatient (CLI) | payer MEDICARE, BC, SELFPAY | END | disposition home or self-care (01) | LOC: LABSPEC 10:37 | PROVIDERS: PCP Family Medicine; Visit Provider Student in an Organized Health Care Education/Training Program | DX: N39.0 Urinary tract infection, site not specified (principal) | CPT/HCPCS: 87086; 87088 ==

== ENCOUNTER → 2021-12-01 | Outpatient (CLI) | payer MEDICARE, BC, SELFPAY ==
--- NOTE | 2021-12-01 10:27 | BD_ITS ---
STUDY: DUAL ENERGY X-RAY ABSORPTIOMETRY / DXA REASON FOR EXAM: Female, 71 years old. M810. Patient is postmenopausal. TECHNIQUE: Bone Mineral Density (BMD) measurements of lumbar spine and bilateral hips were obtained. COMPARISON: None. FINDINGS: Lumbar Spine (L1-L4): g/cm2 (0.975) / T-score (-0.7) / Z-score (1.6) Findings are suggestive of normal bone density with a low fracture risk. Left Femur Total: g/cm2 (0.883) / T-score (-0.5) / Z-score (1.2) Left Femoral Neck: g/cm2 (0.666) / T-score (-1.7) / Z-score (0.3) Right Femur Total: g/cm2 (0.865) / T-score (-0.6) / Z-score (1.0) Right Femoral Neck: g/cm2 (0.633) / T-score (-1.9) / Z-score (0.0) BD/Dexa Bone Density Study IMPRESSION: The patient is considered osteopenic as outlined below according to World Tyler Organization (WHO) criteria with a moderate fracture risk. Reference Information: The T-score is the number of standard deviations above or below the standard which is normal for young adults at their peak bone mineral density. The World Health Organization (WHO) interprets the T-scores as follows: Above -1 Normal bone density Between -1 and -2.5 Osteopenia Equal to / or below -2.5 Osteoporosis As a practical clinical guideline, osteopenia may be graded as follows: Mild -1 through -1.5 Moderate -1.6 through -2.0 Severe -2.1 through -2.4 The Z-score is the number of standard deviations above or below age-matched controls. A Z-score of less than -1.5 would be considered abnormal. References: 1. NIH Osteoporosis and Related Bone Diseases www osteo.org 2. International Society for Clinical Densitometry www iscd.org 3. National Osteoporosis Foundation www nof.org Electronically Signed: Haseeb Jacobo MD at 10:44 EDT ,
== END | disposition home or self-care (01) ==
LOC: OPBD 10:19
PROVIDERS: PCP Family Medicine; Visit Provider Student in an Organized Health Care Education/Training Program
DX: Z78.0 Asymptomatic menopausal state (principal); Z13.820 Encounter for screening for osteoporosis
CPT/HCPCS: 77080

== ENCOUNTER → 2022-01-31 | Outpatient (CLI) | payer MEDICARE, BC, SELFPAY ==
[2022-01-31 11:02] LABS: Bacteria 0 SEEN /hpf (None Seen); Mucous, Urine 0 SEEN /hpf (<or=2+)
[2022-01-31 12:13] LABS: Color, Urine Yellow (Yellow); Glucose, Dipstick Normal (Normal); Ketone-Dipstick Negative (Negative); Leukocyte Esterase-Dipstick Negative /ul (Negative); Nitrite-Dipstick Negative (Negative); Occult Blood-Urine 25 /ul (Negative); Protein-Dipstick Negative (Negative); Specific Gravity, Urine 1.015 (1.002-1.030); Urine Bilirubin Dipstick Negative (Negative); Urine Clarity Clear (Clear); Urine Urobilinogen Normal (Normal); Urine pH 6.5 (5.0 - 8.0)
[2022-01-31 12:28] LABS: Absolute Lymphocyte Count 1.11 X10^3/uL (0.83-4.51); Absolute Neutrophil Count 2.4 X10^3/uL (2.0-7.7); Basophil# 0.03 X10^3/uL; Basophil% 0.7 % (0-1); Eosinophil# 0.07 X10^3/uL; Eosinophils% 1.7 % (0-5); Hematocrit 42.2 % (37-47); Hemoglobin 14.2 g/dL (12.0-15.0); Lymphocyte # 1.11 X10^3/ul (0.83-4.51); Lymphocyte % 27.4 % (19-41); Mean Corp Hgb Conc 33.6 g/dL (32-36); Mean Corpuscular Hgb 31.8 pg (27.0-32.0); Mean Corpuscular Volume 94.6 fL (81-99); Mean Platelet Vol. 11.8 fl (6.2-12.0); Monocyte# 0.41 X10^3/uL; Monocyte% 10.1 % (0-10); NRBC Flagged by Analyzer 0 % (0-5); Neutrophil # 2.42 X10^3/uL (2.7-7.7); Neutrophil % 59.9 % (47-70); Platelet Count 237 K/mm3 (150-450); RBC Distribution Width CV 13.2 % (11.6-14.6); RBC Distribution Width SD 45.5 fl (35.1-43.9); Red Blood Count 4.46 M/mm3 (4.2-5.4); White Blood Count 4.1 K/mm3 (4.4-11.0)
[2022-01-31 12:39] LABS: Red Blood Cells-Urine 0-5 SEEN /hpf (0-5); Squamous Epithelial Cells - UA 0-5 SEEN /hpf (5-10); White Blood Cells 0-5 SEEN /hpf (0-5)
[2022-01-31 13:17] LABS: ALB/GLOB Ratio 1.2 RATIO (0.9-2.4); AST(SGOT) 21 U/L (15-37); Alanine Aminotransfer ALT/SGPT 33 U/L (13-56); Albumin, Serum 3.7 g/dL (3.2-5.0); Alkaline Phosphatase 45 U/L (45-117); Anion Gap 7 (5-15); BUN 21 mg/dL (7-18); BUN/Creat Ratio 24.7 RATIO (10-20); Calcium,Total 9.5 mg/dL (8.5-10.1); Chloride 107 mmol/L (98-107); Cholesterol 155 mg/dL (200); Creatinine, Serum 0.85 mg/dL (0.55-1.02); EST Glomerular Filtration Rate 70 mL/min (>60); Est Glom Filt Rate - Afr Amer 84 mL/min (>60); Globulin 3.2 g/dL (2.2-4.2); Glucose 110 mg/dL (74-106); High Density Lipoprotein 58 mg/dL; Potassium 3.7 mmol/L (3.5-5.1); Protein, Total 6.9 g/dL (6.4-8.2); Sodium Level 140 mmol/L (136-145); Triglycerides 139 mg/dL; Very Low Density Lipoprotein 28 mg/dL (5-40)
[2022-01-31 14:11] LABS: Hemoglobin A1c 5.7 % (3.8-5.6)
== END | disposition home or self-care (01) ==
LOC: MFPLAB 09:46
PROVIDERS: PCP Family Medicine; Visit Provider Family Medicine
DX: I10 Essential (primary) hypertension (principal); E78.00 Pure hypercholesterolemia, unspecified; R73.02 Impaired glucose tolerance (oral)
CPT/HCPCS: 36415; 80053; 80061; 81001; 83036; 85025

== ENCOUNTER 2022-05-05 09:30 | Outpatient (RCR) | payer MEDICARE, BC, SELFPAY ==
--- NOTE | 2022-04-21 13:04 | HP.PTEVAL_ITS ---
Patient's Visit Information CHRISTINA GARCIA is a 71 year old F referred to Physical Therapy by Dr. Scott De La Fuente DO with a diagnosis of Cervicalgia, M54.2; Anesthesia of skin, R20.0. Date of Evaluation: 04/21/22 Physical Therapist: Shaka Gilbert - Visit Plan Frequency: 2x /Week Duration: 6 Weeks Plan: Continue to work on improving cervical ROM, neck, and scapular strengthening. Also continue with manual therapy and use modalities as needed for pain control. - Subjective Pt. is a 71 y.o. female who has been having neck pain for several of months. She had a previous right shoulder pain for a couple of years. She also reports intermittent numbness/tingling in both of her hands. She had recent x-ray of her cervical spine but is not sure of the results. Pt. reports about two headaches a week. She has difficulty with looking up, turning her head to the right, occasionally sleeping, driving, housework, and yard work. 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 Her goal with physical therapy is to be able to turn her head with no pain. She has had previous physical therapy for her right shoulder about three years ago. Pt. rates neck pain at 2/10 currently, at worst 6/10, at best 0/10 and describes the pain as dull. She is currently taking Tylenol for pain. Her PMH includes HBP controlled with medication, ovarian cancer, DVT and hysterectomy. Her hobbies include reading, spending time with grandkids, and walking. - Objective Palpation- No tenderness to palpation. Posture- Good posture in standing and sitting. Cervical AROM flexion- 42 degrees, extension 55 degrees mild pain, rotation to left 52 degrees, rotation to right 60 degrees mild pain. Shoulder AROM- WNL bilaterally. Shoulder strength- Grossly 5/5 for all motions bilaterally - Balance/Special Test Scores Oswestry Neck Score: 13 - Goals Goal 1:: Pt. will improve cervical rotation > 60 degrees in order to improve turning her head while driving. Goal Time Frame: 4-6 Weeks Goal 2:: Pt. will be able to look up and turn her head with no neck pain. Goal Time Frame: 4-6 Weeks Goal 3:: Pt. will be able to sleep a full night with no neck pain. Goal Time Frame: 4-6 Weeks Goal 4:: Pt. will report less than 3 headaches a week. Goal Time Frame: 4-6 Weeks Goal 5:: Pt. will rate neck pain at worst at 3/10 with ADL's. Goal Time Frame: 4-6 Weeks Goal 6:: Pt. will improve Oswestry Neck Disability Index to < 20% in order to improve ADL's. Goal Time Frame: 4-6 Weeks - Rehabilitation Potential Physical Therapy Diagnosis: Decreased cervical ROM, neck/scapular strength, and pain Rehabilitation Potential: Good - Anticipated Interventions Patient/Client Instruction: Educate patient on: Condition, Plan of Care For the Purpose of:: To decrease pain, To improve ability to perform ADL's, To improve performance and independence with ADL's, To assume or resume ADL's, To improve tolerance to ADL's Therapeutic Exercise to Include: Strength training, Passive ROM, Active ROM, Scapular Strength/Stabilization Comment: Continue to improve cervical ROM, neck, and scapular strengthening. For the Purpose of:: To decrease pain, To increase ROM, To improve ability to perform ADL's, To improve performance and independence with ADL's, To assume or resume ADL's, To improve tolerance to ADL's Manual Therapy Techniques to Include: Trigger point massage, Mobilization, Passive ROM, Functional dry needling, Soft tissue mobilization For the Purpose of:: To decrease pain, To increase ROM, To improve ability to perform ADL's, To improve performance and independence with ADL's, To increase flexibility/ROM, To assume or resume ADL's, To improve tolerance to ADL's TENS: Yes IF ES: Yes Cryotherapy (ice pack, ice massage): Yes Thermo therapy (hot pack): Yes Intermittent cervical traction: Yes For the Purpose of:: To decrease pain, To increase ROM, To improve ability to perform ADL's, To improve performance and independence with ADL's, To increase flexibility/ROM, To assume or resume ADL's, To improve tolerance to ADL's Thank you for the opportunity to evaluate your patient. For Medicare and Medicare HMO plans, please review the plan of care and approve it. It will need to be FAXED BACK to us at [phone] for Medicare purposes. For Medicare only, by signing this I certify the plan of care. Please let me know if there are questions or concerns regarding this plan of care. Physician Signature: Date:
--- NOTE | 2022-05-05 09:52 | HP.PTDCSUM ---
It has been my pleasure to treat CHRISTINA GARCIA referred by Dr. Scott De La Fuente DO, with the diagnosis of Cervicalgia, M54.2; Anesthesia of skin, R20.0 for a total of 5 visit(s). Discharge Date: Please see the following information for a summary of their discharge status. Subjective: Pt. states that she is doing really well and feels like she is good to continue with her exercises at home. She still has occasional tenderness but no pain with turning her head anymore. Pt. states that she is about 90% better since starting physical therapy. She reports that the exercises are going well at home. Neck Pain Intensity (Out of 10): 0 % Improvement: 90 Objective/Function: Radha has come to 5 sessions of physical therapy focusing on improving neck ROM, manual therapy, and neck/scapular strengthening. Reviewed pt. goals for therapy and she has met all of her goals for therapy. Educated pt. to continue with her current HEP. Pt. has been discharged from physical therapy at this time and is in agreement with this. Goal 1:: Pt. will improve cervical rotation > 60 degrees in order to improve turning her head while driving. Goal Progress: Goal Met Goal 2:: Pt. will be able to look up and turn her head with no neck pain. Goal Progress: Goal Met Goal 3:: Pt. will be able to sleep a full night with no neck pain. Goal Progress: Goal Met Goal 4:: Pt. will report less than 3 headaches a week. Goal Progress: Goal Met Goal 5:: Pt. will rate neck pain at worst at 3/10 with ADL's. Goal Progress: Goal Met Goal 6:: Pt. will improve Oswestry Neck Disability Index to < 20% in order to improve ADL's. Goal Progress: Goal Met Plan: Pt. has been discharged from physical therapy at this time. If there are questions or concerns regarding this patient's physical therapy, please feel free to call me at [phone]. Thank you for the referral of this patient. Sincerely, Shaka Gilbert Balance/Gait/Functional tests - Balance/Special Test Scores Oswestry Neck Score: 2
== END 2022-05-05 12:20 | disposition home or self-care (01) ==
LOC: PT 09:30
PROVIDERS: PCP Family Medicine; Referring Provider Orthopaedic Surgery; Visit Provider Orthopaedic Surgery
DX: M54.2 Cervicalgia (principal); R20.0 Anesthesia of skin; R20.2 Paresthesia of skin
CPT/HCPCS: 97110; 97140; 97161; 97164

== ENCOUNTER → 2022-06-16 | Outpatient (CLI) | payer MEDICARE, BC, SELFPAY ==
[2022-06-16 08:55] LABS: Mucous, Urine 0 SEEN /hpf (<or=2+); White Blood Cells 0 SEEN /hpf (0-5)
[2022-06-16 09:55] LABS: Color, Urine Yellow (Yellow); Glucose, Dipstick Normal (Normal); Ketone-Dipstick Negative (Negative); Leukocyte Esterase-Dipstick Negative /ul (Negative); Nitrite-Dipstick Negative (Negative); Occult Blood-Urine 25 /ul (Negative); Protein-Dipstick Negative (Negative); Specific Gravity, Urine 1.015 (1.002-1.030); Urine Bilirubin Dipstick Negative (Negative); Urine Clarity Sl. Cloudy (Clear); Urine Urobilinogen Normal (Normal); Urine pH 6.5 (5.0 - 8.0)
[2022-06-16 09:56] LABS: Absolute Lymphocyte Count 1.12 X10^3/uL (0.83-4.51); Absolute Neutrophil Count 2.3 X10^3/uL (2.0-7.7); Basophil# 0.05 X10^3/uL; Basophil% 1.3 % (0-1); Eosinophil# 0.09 X10^3/uL; Eosinophils% 2.3 % (0-5); Hematocrit 43.7 % (37-47); Hemoglobin 14.4 g/dL (12.0-15.0); Lymphocyte # 1.12 X10^3/ul (0.83-4.51); Lymphocyte % 28.1 % (19-41); Mean Corpuscular Hgb 30.7 pg (27.0-32.0); Mean Corpuscular Volume 93.2 fL (81-99); Mean Platelet Vol. 11.3 fl (6.2-12.0); Monocyte# 0.38 X10^3/uL; Monocyte% 9.5 % (0-10); NRBC Flagged by Analyzer 0 % (0-5); Neutrophil # 2.34 X10^3/uL (2.7-7.7); Neutrophil % 58.5 % (47-70); Platelet Count 251 K/mm3 (150-450); RBC Distribution Width CV 14.5 % (11.6-14.6); RBC Distribution Width SD 49.3 fl (35.1-43.9); Red Blood Count 4.69 M/mm3 (4.2-5.4)
[2022-06-16 10:04] LABS: International Normalized Ratio 2.4; Prothrombin Time (Protime)PT. 25.7 SECONDS (11.7-14.9)
[2022-06-16 10:11] LABS: Bacteria 1+ /hpf (None Seen); Red Blood Cells-Urine 0-5 SEEN /hpf (0-5); Squamous Epithelial Cells - UA 0-5 SEEN /hpf (5-10)
[2022-06-16 10:29] LABS: Vitamin D,25 Hydroxy 45.6 ng/mL
[2022-06-16 10:43] LABS: ALB/GLOB Ratio 1.2 RATIO (0.9-2.4); AST(SGOT) 21 U/L (15-37); Alanine Aminotransfer ALT/SGPT 33 U/L (13-56); Albumin, Serum 3.7 g/dL (3.2-5.0); Alkaline Phosphatase 44 U/L (45-117); Anion Gap 7 (5-15); BUN 21 mg/dL (7-18); BUN/Creat Ratio 25.5 RATIO (10-20); Calcium,Total 9.8 mg/dL (8.5-10.1); Chloride 106 mmol/L (98-107); Cholesterol 179 mg/dL (200); Creatinine, Serum 0.82 mg/dL (0.55-1.02); EST Glomerular Filtration Rate 72 mL/min (>60); Est Glom Filt Rate - Afr Amer 88 mL/min (>60); Globulin 3.2 g/dL (2.2-4.2); Glucose 106 mg/dL (74-106); High Density Lipoprotein 61 mg/dL; Potassium 3.5 mmol/L (3.5-5.1); Protein, Total 6.9 g/dL (6.4-8.2); Sodium Level 141 mmol/L (136-145); Triglycerides 123 mg/dL; Very Low Density Lipoprotein 25 mg/dL (5-40)
[2022-06-16 10:57] LABS: Hemoglobin A1c 5.8 % (3.8-5.6)
== END | disposition home or self-care (01) ==
LOC: MFPLAB 08:47
PROVIDERS: PCP Family Medicine; Referring Provider Family Medicine; Visit Provider Family Medicine
DX: I10 Essential (primary) hypertension (principal); I82.409 Acute embolism and thrombosis of unspecified deep veins of unspecified lower extremity; M85.80 Other specified disorders of bone density and structure, unspecified site; I65.29 Occlusion and stenosis of unspecified carotid artery; R73.02 Impaired glucose tolerance (oral)
CPT/HCPCS: 36415; 80053; 80061; 81001; 82306; 83036; 85025; 85610

== ENCOUNTER → 2022-06-16 | Outpatient (CLI) | payer MEDICARE, BC, SELFPAY ==
--- NOTE | 2022-06-16 10:32 | BI_ITS ---
MAMMOGRAPHY - BILATERAL SCREENING REASON FOR EXAM: Female, 71 years old. Routine annual screening examination. PERTINENT HISTORY: Non-contributory. History of ovarian carcinoma. TECHNIQUE: Digital bilateral breast ganesh (3D mammographic acquisition) in the CC and MLO projections. 2-D mediolateral oblique (MLO) and craniocaudad (CC) views of both breasts were obtained. CAD: Full Field Digital Mammography with Computer Added Detection was performed. COMPARISON: Comparison is made with prior study April 05, 2021 and April 01, 2020. FINDINGS: Breast Composition: The breasts are heterogeneously dense, which may obscure small masses. There are no dominant masses or suspicious calcifications. No other significant abnormalities are identified. There has been no significant change since the prior study. BI/SCRN MAMM (CAD)W/GANESH BILAT IMPRESSION: Stable bilateral screening mammogram. Yearly follow-up mammogram recommended. (A) ASSESSMENT CATEGORY: BIRADS Category 1: Negative. A letter regarding these results will be sent to the patient by the facility within 30 days. Approximately 10% of breast cancers are not detected by mammography. A normal mammogram should not delay biopsy of a clinically suspicious abnormality. [id number] Electronically Signed: Haseeb Jacobo MD at 12:14 EST ,
== END | disposition home or self-care (01) ==
LOC: OPBI 10:30
PROVIDERS: PCP Family Medicine; Visit Provider Family Medicine
DX: Z12.31 Encounter for screening mammogram for malignant neoplasm of breast (principal); I82.409 Acute embolism and thrombosis of unspecified deep veins of unspecified lower extremity; I10 Essential (primary) hypertension; M85.80 Other specified disorders of bone density and structure, unspecified site; I65.29 Occlusion and stenosis of unspecified carotid artery; R73.02 Impaired glucose tolerance (oral)
CPT/HCPCS: 36415; 77063; 77067; 80053; 80061; 81001; 82306; 83036; 85025; 85610

== ENCOUNTER → 2022-10-12 | Outpatient (CLI) | payer MEDICARE, BC, SELFPAY ==
[2022-10-12 09:03] LABS: White Blood Cells 0 SEEN /hpf (0-5)
[2022-10-12 09:49] LABS: Color, Urine Yellow (Yellow); Glucose, Dipstick Normal (Normal); Ketone-Dipstick Negative (Negative); Leukocyte Esterase-Dipstick Negative /ul (Negative); Nitrite-Dipstick Negative (Negative); Occult Blood-Urine 25 /ul (Negative); Protein-Dipstick 15 mg/dl (Negative); Specific Gravity, Urine 1.015 (1.002-1.030); Urine Bilirubin Dipstick Negative (Negative); Urine Clarity Sl. Cloudy (Clear); Urine Urobilinogen Normal (Normal)
[2022-10-12 09:49] LABS: Absolute Neutrophil Count 2.2 X10^3/uL (2.0-7.7); Basophil# 0.03 X10^3/uL; Basophil% 0.7 % (0-1); Eosinophil# 0.09 X10^3/uL; Eosinophils% 2.2 % (0-5); Hematocrit 41.3 % (37-47); Hemoglobin 14.2 g/dL (12.0-15.0); Lymphocyte % 33.7 % (19-41); Mean Corp Hgb Conc 34.4 g/dL (32-36); Mean Corpuscular Hgb 31.6 pg (27.0-32.0); Mean Platelet Vol. 10.9 fl (6.2-12.0); Monocyte# 0.43 X10^3/uL; Monocyte% 10.4 % (0-10); NRBC Flagged by Analyzer 0 % (0-5); Platelet Count 237 K/mm3 (150-450); RBC Distribution Width CV 13.3 % (11.6-14.6); RBC Distribution Width SD 45.4 fl (35.1-43.9); Red Blood Count 4.49 M/mm3 (4.2-5.4); White Blood Count 4.2 K/mm3 (4.4-11.0)
[2022-10-12 10:01] LABS: Bacteria 1+ /hpf (None Seen); Mucous, Urine 1+ /hpf (<or=2+); Red Blood Cells-Urine 0-5 SEEN /hpf (0-5); Squamous Epithelial Cells - UA 5-10 SEEN /hpf (5-10)
[2022-10-12 10:09] LABS: Hemoglobin A1c 5.9 % (3.8-5.6)
[2022-10-12 10:20] LABS: AST(SGOT) 21 U/L (15-37); Alanine Aminotransfer ALT/SGPT 28 U/L (13-56); Albumin, Serum 3.6 g/dL (3.2-5.0); Alkaline Phosphatase 43 U/L (45-117); Anion Gap 5 (5-15); BUN 17 mg/dL (7-18); BUN/Creat Ratio 17.9 RATIO (10-20); Chloride 107 mmol/L (98-107); Cholesterol 154 mg/dL (200); Creatinine, Serum 0.95 mg/dL (0.55-1.02); EST Glomerular Filtration Rate 61 mL/min (>60); Est Glom Filt Rate - Afr Amer 74 mL/min (>60); Globulin 3.5 g/dL (2.2-4.2); Glucose 108 mg/dL (74-106); High Density Lipoprotein 57 mg/dL; Potassium 3.7 mmol/L (3.5-5.1); Protein, Total 7.1 g/dL (6.4-8.2); Sodium Level 140 mmol/L (136-145); Thyroid Stim Hormone (TSH) 2.01 uIU/mL (0.358-3.74); Triglycerides 129 mg/dL; Very Low Density Lipoprotein 26 mg/dL (5-40)
== END | disposition home or self-care (01) ==
LOC: MFPLAB 08:53
PROVIDERS: PCP Family Medicine; Visit Provider Family Medicine
DX: R73.02 Impaired glucose tolerance (oral) (principal); I10 Essential (primary) hypertension
CPT/HCPCS: 36415; 80053; 80061; 81001; 83036; 84443; 85025

== ENCOUNTER 2022-12-07 12:30 | Outpatient (RCR) | payer MEDICARE, BC, SELFPAY ==
--- NOTE | 2022-11-16 10:27 | HP.PTEVAL ---
Patient's Visit Information Visit Information Visit Information: CHRISTINA GARCIA is a 72 year old F referred to Physical Therapy by Dr. Monica Smith DPM with a diagnosis of Achilles tendonosis. Date of Evaluation: 11/16/22 Physical Therapist: Logan Davidson DPT, OCS, CSCS Visit Plan Frequency: 2x /Week Duration: 4-6 Weeks Plan: 2x/week for 4-6 weeks as needed for 1. rollout to L gastroc soleus and strech of achilles 2/ instruct and progress ecc strength achilles and ankle TB strength 3. CFM to achilles to tolerance 4. US nonthermal to L achilles bulbousness Pt to monitor activity and modify as needed, not walk up hil aggressively, keep ankle moving when resting after activity, stretch am and before on wall and stretch towel prior to getting up and after activity. Will get running shoes to walk in. Pt wishes to hold on iontophoresis due to out of pocket cost and not covered by [facility] but will consider if improvement not made. Subjective Subjective: I have achilles lump on L achilles. It doesn't inhibit much but does make her painful if she is really active. painful if you touch it or if she walks alot. Mostly hurts after walking. Plays pickle ball and it doesn't hurt but may hurt after. Sleep is fine. retired. Basic ADLs are fine. Keeps up with mowing on 3 acres aand they yard without much trouble. Walks 5 days per week and 2 miles or so but hurts after resting and then upons standing. Does not hurt for long after these things but it does hurt. Doing achilles stretch with towel and step stretch and wall stretch, 3 days now and it seems less bulbous. Pain L achilles: Pain Intensity (Out of 10): 0 Pain Intensity Range: 0 and 5 Comment: tender to touch Objective Objective: No antalgia in gait, walking I, steps I without pain today up and down. Trasnfers I, good balance. Hip and knee aROM WFL and unremarkable AROM L ankle 0 DF to 55 PF and full ev/inv. R ankle symmetrical except DF to 4 degrees AROM. Tender mid substance L achilles moderately today with obvious bulbousness, not tender at insertion or in musculo junction. strength is 4+/5 with heel raises and DF/PF/INV and no pain. reflexes 2/3 patella and achilles Sensation is WNL to gross light touch. Balance/Special Test Scores Lower Extremity Functional Score: 72 Goals Goal 1:: Pt able to walk 2 miles adn relax after without increased pain Goal Time Frame: 4-6 Weeks Goal 2:: I appropriate management of tendonosis with stretching, activitiy modficaiton and ecc strength Goal Time Frame: 4-6 Weeks Goal 3:: Pt feel 90% better in overall presentation Goal Time Frame: 4-6 Weeks Rehabilitation Potential Physical Therapy Diagnosis: achilles tendonosis Rehabilitation Potential: Good Anticipated Interventions Patient/Client Instruction: Educate patient on: Condition and Plan of Care For the Purpose of:: To decrease pain, To increase ROM, To improve nutrient delivery to tissue and To improve muscle performance and motor function Therapeutic Exercise to Include: Strength training, Flexibilty training, Passive ROM and Active ROM For the Purpose of:: To decrease pain, To increase ROM, To improve nutrient delivery to tissue, To improve muscle performance and motor function and To increase tolerance to activity/condition/position Manual Therapy Techniques to Include: Mobilization and Soft tissue mobilization For the Purpose of:: To decrease pain, To increase ROM and To improve nutrient delivery to tissue Ultrasound (thermal/non thermal): Yes (nonthermal to achilles) For the Purpose of:: To decrease swelling/inflammation Text: Thank you for the opportunity to evaluate your patient. For Medicare and Medicare HMO plans, please review the plan of care and approve it. It will need to be FAXED BACK to us at [phone] for Medicare purposes. For Medicare only, by signing this I certify the plan of care. Please let me know if there are questions or concerns regarding this plan of care. Physician Signature: Date:
--- NOTE | 2022-12-07 13:22 | HP.PTREVAL ---
Re-Evaluation Intro: Dr. Monica Smith, DPM, It has been my pleasure to treat CHRISTINA GARCIA over the last 7 visits for Achilles tendonosis. Please see the progress note below for an update on the physical therapy plan of care! Subjective Subjective: Getting better. Not nearly as bulgy. Not as painful at night to the touch, less tender. Pain during the day is not a problem, Standing and walking are no problem. Main problem is still tenderness. Objective Objective/Function: Good AROM and much less tenderness than 3 weeks ago. Still bulbous in L achilles. Walking well adn functionat home is good. Plan Plan Plan: f/u two weeks to progress from heel raises to ecc lowering, possibly slight plyo and d/c if doing well, pt to call prior if worsens. Balance/Gait/Functional tests Balance/Special Test Scores Lower Extremity Functional Score: 77 Goals Goals Goal 1:: Pt able to walk 2 miles adn relax after without increased pain Goal Time Frame: 4-6 Weeks Goal Progress: 45 minutes Goal 2:: I appropriate management of tendonosis with stretching, activitiy modficaiton and ecc strength Goal Time Frame: 4-6 Weeks Goal Progress: Goal Met Goal 3:: Pt feel 90% better in overall presentation Goal Time Frame: 4-6 Weeks Goal Progress: 75% Anticipated Interventions Anticipated Interventions Patient/Client Instruction: Educate patient on: Condition and Plan of Care For the Purpose of:: To decrease pain, To increase ROM, To improve nutrient delivery to tissue and To improve muscle performance and motor function Therapeutic Exercise to Include: Strength training, Flexibilty training, Passive ROM and Active ROM For the Purpose of:: To decrease pain, To increase ROM, To improve nutrient delivery to tissue, To improve muscle performance and motor function and To increase tolerance to activity/condition/position Manual Therapy Techniques to Include: Mobilization and Soft tissue mobilization For the Purpose of:: To decrease pain, To increase ROM and To improve nutrient delivery to tissue Ultrasound (thermal/non thermal): Yes (nonthermal to achilles) For the Purpose of:: To decrease swelling/inflammation Re-Evaluation Ending Re-evaluation ending: Please do not hesitate to contact me at [phone] by phone or if you have questions or concerns regarding this new plan of care! Sincerely, Logan Davidson, DPT, OCS, CSCS
--- NOTE | 2023-01-12 15:46 | HP.PT.NRP ---
Patient Information Patient Information: CHRISTINA GARCIA was seen in my office for initial evaluation on 11/16/22. The following Plan of Care was established for this patient: POC Established Initial Frequency: 2x /Week Initial Duration: 4-6 Weeks Anticipated Interventions Patient/Client Instruction: Educate patient on: Condition and Plan of Care For the Purpose of:: To decrease pain, To increase ROM, To improve nutrient delivery to tissue and To improve muscle performance and motor function Therapeutic Exercise to Include: Strength training, Flexibilty training, Passive ROM and Active ROM For the Purpose of:: To decrease pain, To increase ROM, To improve nutrient delivery to tissue, To improve muscle performance and motor function and To increase tolerance to activity/condition/position Manual Therapy Techniques to Include: Mobilization and Soft tissue mobilization For the Purpose of:: To decrease pain, To increase ROM and To improve nutrient delivery to tissue Ultrasound (thermal/non thermal): Yes (nonthermal to achilles) For the Purpose of:: To decrease swelling/inflammation Last Seen Last Seen: This patient was last seen in our office 12/07/22. Pertinent comments regarding their Physical therapy will appear below: Pt seen 8 visits of POC and was 75% better and was to f/u 2 weeks later but did not attend or schedule. At this point, it has been over a month and I will discontinue due to nonattendance At this point I will be discontinuing this patient from physical therapy. I would be happy to see this patient again in the future if found appropriate by the physician. Thank you! Logan Davidson, DPT, OCS, CSCS Balance/Gait/Functional tests Balance/Special Test Scores Lower Extremity Functional Score: 77
== END 2022-12-07 19:00 | disposition home or self-care (01) ==
LOC: PT 12:30
PROVIDERS: PCP Family Medicine; Referring Provider Podiatrist; Visit Provider Podiatrist
DX: M67.962 Unspecified disorder of synovium and tendon, left lower leg (principal)
CPT/HCPCS: 97035; 97110; 97140; 97161; 97530

== ENCOUNTER → 2023-03-07 | Outpatient (CLI) | payer MEDICARE, BC, SELFPAY ==
[2023-03-07 08:09] LABS: Mucous, Urine 0 SEEN /hpf (<or=2+); White Blood Cells 0 SEEN /hpf (0-5)
[2023-03-07 10:02] LABS: Absolute Lymphocyte Count 1.08 X10^3/uL (0.83-4.51); Absolute Neutrophil Count 2.1 X10^3/uL (2.0-7.7); Basophil# 0.04 X10^3/uL; Eosinophil# 0.16 X10^3/uL; Eosinophils% 4.1 % (0-5); Hematocrit 42.1 % (37-47); Hemoglobin 14.2 g/dL (12.0-15.0); Lymphocyte # 1.08 X10^3/ul (0.83-4.51); Lymphocyte % 27.4 % (19-41); Mean Corp Hgb Conc 33.7 g/dL (32-36); Mean Corpuscular Hgb 31.3 pg (27.0-32.0); Mean Corpuscular Volume 92.9 fL (81-99); Mean Platelet Vol. 11.1 fl (6.2-12.0); Monocyte# 0.52 X10^3/uL; Monocyte% 13.2 % (0-10); NRBC Flagged by Analyzer 0 % (0-5); Neutrophil # 2.14 X10^3/uL (2.7-7.7); Neutrophil % 54.3 % (47-70); Platelet Count 221 K/mm3 (150-450); RBC Distribution Width CV 13.9 % (11.6-14.6); Red Blood Count 4.53 M/mm3 (4.2-5.4); White Blood Count 3.9 K/mm3 (4.4-11.0)
[2023-03-07 10:09] LABS: Color, Urine Yellow (Yellow); Glucose, Dipstick Normal (Normal); Ketone-Dipstick Negative (Negative); Leukocyte Esterase-Dipstick Negative /ul (Negative); Nitrite-Dipstick Negative (Negative); Occult Blood-Urine 25 /ul (Negative); Protein-Dipstick 15 mg/dl (Negative); Urine Bilirubin Dipstick Negative (Negative); Urine Clarity Sl. Cloudy (Clear); Urine Urobilinogen Normal (Normal)
[2023-03-07 10:13] LABS: Vitamin D,25 Hydroxy 48.6 ng/mL
[2023-03-07 10:18] LABS: Bacteria 1+ /hpf (None Seen); Red Blood Cells-Urine 0-5 SEEN /hpf (0-5); Squamous Epithelial Cells - UA 0-5 SEEN /hpf (5-10)
[2023-03-07 10:48] LABS: Hemoglobin A1c 5.7 % (3.8-5.6)
[2023-03-07 10:50] LABS: AST(SGOT) 20 U/L (15-37); Alanine Aminotransfer ALT/SGPT 27 U/L (13-56); Albumin, Serum 3.7 g/dL (3.2-5.0); Alkaline Phosphatase 49 U/L (45-117); Anion Gap 3 (5-15); BUN 15 mg/dL (7-18); BUN/Creat Ratio 19.7 RATIO (10-20); Calcium,Total 9.6 mg/dL (8.5-10.1); Chloride 109 mmol/L (98-107); Cholesterol 155 mg/dL (200); Creatinine, Serum 0.76 mg/dL (0.55-1.02); EST Glomerular Filtration Rate 79 mL/min (>60); Est Glom Filt Rate - Afr Amer 95 mL/min (>60); Globulin 3.6 g/dL (2.2-4.2); Glucose 105 mg/dL (74-106); High Density Lipoprotein 64 mg/dL; Potassium 3.4 mmol/L (3.5-5.1); Protein, Total 7.3 g/dL (6.4-8.2); Sodium Level 140 mmol/L (136-145); Triglycerides 109 mg/dL; Very Low Density Lipoprotein 22 mg/dL (5-40)
== END | disposition home or self-care (01) ==
LOC: MTLAB 08:04
PROVIDERS: PCP Family Medicine; Referring Provider Family Medicine; Visit Provider Family Medicine
DX: I10 Essential (primary) hypertension (principal); M85.80 Other specified disorders of bone density and structure, unspecified site; R73.02 Impaired glucose tolerance (oral)
CPT/HCPCS: 36415; 80053; 80061; 81001; 82306; 83036; 85025

== ENCOUNTER → 2023-03-29 | Outpatient (CLI) | payer MEDICARE, BC, SELFPAY ==
--- NOTE | 2023-03-29 09:49 | CDU_ITS ---
Reason For Study: STENOSIS Rt. Velocities/BP Lt. Velocities/BP Prox CCA 66.7/11.0 cm/sec. Prox CCA 132.5/25.3 cm/sec. Mid CCA 79.0/20.4 cm/sec. Mid CCA 84.2/21.5 cm/sec. Dist CCA 78.0/21.4 cm/sec. Dist CCA 87.5/21.5 cm/sec. Prox ICA 74.3/19.5 cm/sec. Prox ICA 75.4/18.2 cm/sec. Mid ICA 77.1/22.3 cm/sec. Mid ICA 85.3/21.5 cm/sec. Dist ICA 108.0/34.4 cm/sec. Dist ICA 83.1/22.6 cm/sec. Rt. ICA/CCA = 108.0/79.0=1.4. Lt. ICA/CCA = 85.3/84.2=1.0. Prox ECA 66.7/15.7 cm/sec. Prox ECA 75.4/12.7 cm/sec. Rt. Vert. 33.2/7.5 cm/sec. Lt. Vert. 44.6/11.8 cm/sec. Right Extracranial There is intimal thickening but no significant atherosclerotic plaque noted in the right common carotid artery. There is heterogeneous, smooth atherosclerotic plaque noted in the right internal carotid artery. There is intimal thickening but no significant atherosclerotic plaque noted in the right external carotid artery. Antegrade flow is noted in the right vertebral artery. Left Extracranial There is intimal thickening but no significant atherosclerotic plaque noted in the left common carotid artery. There is intimal thickening but no significant atherosclerotic plaque noted in the left internal carotid artery. There is intimal thickening but no significant atherosclerotic plaque noted in the left external carotid artery. Antegrade flow is noted in the left vertebral artery. Procedure Carotid Duplex [id number]. This is a Carotid Duplex examination using B-mode, color flow and specral Doppler. Exam performed in department. VL/Carotid Duplex Ultrasound Interpretation Summary Mild (<50%) stenosis right extracranial internal carotid. Normal left extracranial internal carotid. Patent and antegrade vertebrals bilaterally. Ordering Physician: Luis A Vigil Referring Physician: Luis A Vigil Performed By: Elizabeth Luna RDCS, RVT
== END | disposition home or self-care (01) ==
LOC: CVS 09:48
PROVIDERS: PCP Family Medicine; Referring Provider Family Medicine; Visit Provider Family Medicine
DX: I65.23 Occlusion and stenosis of bilateral carotid arteries (principal)
CPT/HCPCS: 93880

== ENCOUNTER → 2023-07-19 | Outpatient (CLI) | payer MEDICARE, BC, SELFPAY ==
[2023-07-19 07:55] LABS: Bacteria 0 SEEN /hpf (None Seen); Mucous, Urine 0 SEEN /hpf (<or=2+)
[2023-07-19 10:11] LABS: Color, Urine Yellow (Yellow); Glucose, Dipstick Normal (Normal); Ketone-Dipstick Negative (Negative); Leukocyte Esterase-Dipstick 500 /ul (Negative); Nitrite-Dipstick Negative (Negative); Occult Blood-Urine 250 /ul (Negative); Protein-Dipstick 15 mg/dl (Negative); Urine Bilirubin Dipstick Negative (Negative); Urine Clarity Clear (Clear); Urine Urobilinogen Normal (Normal)
[2023-07-19 10:25] LABS: Absolute Lymphocyte Count 1.22 X10^3/uL (0.83-4.51); Absolute Neutrophil Count 2.2 X10^3/uL (2.0-7.7); Basophil# 0.04 X10^3/uL; Eosinophil# 0.11 X10^3/uL; Eosinophils% 2.7 % (0-5); Hematocrit 44.5 % (37-47); Hemoglobin 14.9 g/dL (12.0-15.0); Lymphocyte # 1.22 X10^3/ul (0.83-4.51); Lymphocyte % 30.2 % (19-41); Mean Corp Hgb Conc 33.5 g/dL (32-36); Mean Corpuscular Hgb 30.9 pg (27.0-32.0); Mean Corpuscular Volume 92.3 fL (81-99); Monocyte# 0.45 X10^3/uL; Monocyte% 11.1 % (0-10); NRBC Flagged by Analyzer 0 % (0-5); Neutrophil # 2.21 X10^3/uL (2.7-7.7); Neutrophil % 54.8 % (47-70); Platelet Count 248 K/mm3 (150-450); RBC Distribution Width CV 13.2 % (11.6-14.6); RBC Distribution Width SD 44.7 fl (35.1-43.9); Red Blood Count 4.82 M/mm3 (4.2-5.4)
[2023-07-19 10:30] LABS: Vitamin D,25 Hydroxy 63.2 ng/mL
[2023-07-19 10:33] LABS: Hemoglobin A1c 5.8 % (3.8-5.6); Red Blood Cells-Urine 25-50 SEEN /hpf (0-5); Squamous Epithelial Cells - UA 0-5 SEEN /hpf (5-10); Transitional Epithelial - Ur 0-5 SEEN /hpf (0-5); White Blood Cells 25-50 SEEN /hpf (0-5)
[2023-07-19 10:52] LABS: ALB/GLOB Ratio 1.1 RATIO (0.9-2.4); AST(SGOT) 22 U/L (15-37); Alanine Aminotransfer ALT/SGPT 28 U/L (13-56); Albumin, Serum 3.8 g/dL (3.2-5.0); Alkaline Phosphatase 48 U/L (45-117); Anion Gap 6 (5-15); BUN 20 mg/dL (7-18); BUN/Creat Ratio 24.8 RATIO (10-20); Calcium,Total 9.5 mg/dL (8.5-10.1); Chloride 106 mmol/L (98-107); Cholesterol 159 mg/dL (200); Creatinine, Serum 0.81 mg/dL (0.55-1.02); EST Glomerular Filtration Rate 74 mL/min (>60); Est Glom Filt Rate - Afr Amer 89 mL/min (>60); Globulin 3.5 g/dL (2.2-4.2); Glucose 99 mg/dL (74-106); High Density Lipoprotein 56 mg/dL; Potassium 3.5 mmol/L (3.5-5.1); Protein, Total 7.3 g/dL (6.4-8.2); Sodium Level 140 mmol/L (136-145); Thyroid Stim Hormone (TSH) 1.76 uIU/mL (0.358-3.74); Triglycerides 153 mg/dL; Very Low Density Lipoprotein 31 mg/dL (5-40)
== END | disposition home or self-care (01) ==
PROVIDERS: PCP Family Medicine; Referring Provider Family Medicine; Visit Provider Family Medicine
DX: R82.81 Pyuria (principal); M85.80 Other specified disorders of bone density and structure, unspecified site; R73.02 Impaired glucose tolerance (oral); I10 Essential (primary) hypertension
CPT/HCPCS: 36415; 80053; 80061; 81001; 82306; 83036; 84443; 85025; 87086; 87088

== ENCOUNTER 2023-09-15 18:16 | Emergency (ER) | payer MEDICARE, BC, SELFPAY ==
[2023-09-15 18:16] VITALS: BP 199/116; BP 199/121; PULSE 72; PULSE 75; RESP 14; TEMP 36.2; O2SAT 96; O2SAT 97; BMI 27.1
--- NOTE | 2023-09-15 18:22 | EKG12_ITS ---
Test Reason : CP Blood Pressure : / mmHG Vent. Rate : 071 BPM Atrial Rate : 071 BPM P-R Int : 162 ms QRS Dur : 080 ms QT Int : 344 ms P-R-T Axes : 019 006 041 degrees QTc Int : 373 ms Normal sinus rhythm Normal ECG Confirmed by LUCAS HAAS, JOSE ROBERTO ([id number]), international editorial producer DAVI WELLINGTON ([id number]) on 09/18/2023 10:43:40 AM Referred By: Confirmed By:JOSE ROBERTO ZAVALA MD
--- NOTE | 2023-09-15 18:29 | EDS_ITS ---
HPI History of Present Illness Chief Complaint: Chest Pain Detail of Chief Complaint: Pain right shoulder region and anterior upper right chest Informant: patient Occured/Mechanism Comment: Patient is moving and has been moving objects. Onset/Context/Timing Onset: Yesterday Context: Sudden Onset Timing: Continuous Quality of Pain: Dull and Aching Location: Right shoulder region Current Severity: Mild Maximum Severity: Severe Worsened by: Movement of her right upper extremity Relieved by: Abducted and internally rotated. And if patient supports the weight of her Associated Symptoms Associated Symptoms: Positive for Loss of Funtion; Negative for Parasthesia or Weakness Narrative Narrative: Patient is a 73-year-old woman. She has history of tendinitis of the right rotator cuff. Review of orthopedic notes indicates she has also tendinitis of the right bicep as well as primary osteoarthritis of the right shoulder. 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 Patient states pain started yesterday. Has been moving. She states her children are moving the heavier objects. She is supporting her arm otherwise she grimaces. She prefers her arm to be internally rotated and abducted. There is no history of direct trauma. She denies paresthesia, anesthesia or motor weakness. The pain is inferior the right clavicle. There is no pleuritic component. She does have remote history of PE and DVT. She has been injected several times into the right shoulder. She sees Dr. Scott De La Fuente Prior similar symptoms: Yes Recent Illness/Hospitalization: No PFSH PFS Medical History Wears glasses Wears contact lenses Post-menopausal Alcohol use History of steroid therapy Arthritis DVT (deep venous thrombosis) Easy bruising Gastric reflux Non-smoker Shortness of breath on exertion Leg cramps History of echocardiogram Cardiology follow-up encounter Valvular heart disease Carotid artery stenosis Presence of IVC filter History of DVT (deep vein thrombosis) Essential hypertension Pure hypercholesterolemia Pulmonary embolism Malignant neoplasm of ovary Home Medications ?Medication ?Instructions ?Recorded ?Last Taken ?Type glucosamine 750 mg-msm 125 2 ea PO DAILY 02/03/18 Unknown History mg-chondroitin 600 mg-D3 1,000 unit tablet multivitamin 1 tab PO DAILY 11/19/18 Unknown History warfarin 4 mg tablet 4 mg PO .COMPLEX #1 TAB 06/08/21 09/09/21 Rx rosuvastatin 20 mg tablet 20 mg PO DAILY 09/09/21 Unknown History aspirin 81 mg tablet,delayed 81 mg PO DAILY 02/10/22 Unknown History release (Adult Low Dose Aspirin) cholecalciferol (vitamin D3) 25 25 mcg PO DAILY 02/10/22 Unknown History mcg (1,000 unit) tablet conjugated estrogens 0.625 mg/gram 0.625 mg vaginal 2XW 02/10/22 Unknown History vaginal cream ramipril 10 mg capsule 10 mg PO BID #180 caps 03/08/22 Unknown Rx carvedilol 3.125 mg tablet See Rx Instructions .Route 03/06/23 Unknown Rx .COMPLEX #180 tabs amlodipine 5 mg tablet 5 mg PO DAILY #90 tabs 06/08/23 Unknown Rx hydrochlorothiazide 25 mg tablet 25 mg .Route .COMPLEX 07/26/23 Unknown History omeprazole 40 mg capsule,delayed 40 mg PO DAILY #90 caps 08/17/23 Unknown Rx release Allergy/AdvReac Type Severity Reaction Status Date / Time benazepril (From Lotrel) AdvReac Severe ankle Verified 09/15/23 18:17 swelling and myalgias metoprolol (From Lopressor) AdvReac sluggish Verified 09/15/23 18:17 Family History Father Hypertension Heart disease Prostate CA Mother Hypertension Grandmother Goiter Daughter Kidney disease Hypertension Cancer skin Surgical History History of basal cell carcinoma excision (~04/2019) ABD ablation H/O bilateral oophorectomy H/O: hysterectomy Social History household members: children housing: house current occupational status: employed current occupation: [employer] pets and animals: Yes pets and animals: dog(s) Smoking Status: Never smoker second hand exposure: No alcohol intake: current alcohol intake frequency: a few times a month Alcohol type: wine details: occasional substance use type: does not use caffeine: Yes Type: coffee Number of servings: 1 ROS ROS ED Constitutional Constitutional ED: Denies chills, fever(s), subjective, sweats or weight loss Cardiovascular Cardiovascular: Reports chest pain; Denies orthopnea, palpitations, paroxysmal nocturnal dyspnea or racing heartbeat Respiratory/Chest Respiratory/Chest: Denies cough, dyspnea, dyspnea on exertion, orthopnea or paroxysmal nocturnal dyspnea Gastrointestinal Gastrointestinal: Denies abdominal pain, nausea or vomiting Musculoskeletal Musculoskeletal: Denies myalgias or neck pain Integumentary Denies rash Neurologic Neurologic: Denies paresthesias or weakness Hematologic/Lymphatic Hematologic/Lymphatic: Denies easy bleeding or easy bruising EXAM Physical Exam Const Vital Signs: 09/15/23 18:16 09/15/23 18:16 Temperature 97.2 F L Temperature Source Temporal Pulse Rate 75 72 Respiratory Rate 14 14 Blood Pressure 199/121 H 199/116 H Blood Pressure Mean 147 143 Pulse Ox 97 96 Oxygen Delivery Method Room Air Room Air Positive well nourished and well developed Constitutional Narrative: Patient appears uncomfortable. She is holding her right upper extremity up ag ainst her chest. General Appearance ED: well developed HEENT Reports moist mucous membranes normocephalic and atraumatic Eyes PERRL and EOMs intact bilaterally Neck full ROM and supple Neck Narrative: There is no JVD. There is no lymphadenopathy. Chest Wall palpation of chest normal Resp normal respiratory effort and clear to auscultation bilaterally Cardio regular rate, regular rhythm, S1 normal heart sound and S2 normal heart sound Back/Spine Cervical Spine: Negative for cervical spine tenderness Thoracic Spine / Upper Back: Negative for thoracic spinal tenderness Lumbar Spine / Lower Back: Negative for lumbar spinal tenderness Extremity normal to inspection; Negative for full ROM Extremity Narrative: Patient has pain with passive abduction past 90 degrees. There is tenderness over the bicipital groove. Axillary, median, radial and ulnar function intact. Radial pulses 2+. There is no skin lesions noted. Patient has significant discomfort if she does not support her arm. There is no discoloration of the right upper extremity. There is no distention of veins. Neuro oriented x3, CN's II-XII intact bilaterally, no focal motor deficits and no sen jeremy deficits noted Sensorium / Orientation: alert Psych mental status grossly normal Skin General Skin Exam: Negative for petechiae Lesions: no lesions Rashes: no rashes Trauma: no lacerations or abrasions MDM MDM MDM Narrative Medical decision making narrative: Patient in all likelihood as tendinitis/impingement syndrome of the right shoulder. Since she is on anticoagulant will inject 5 cc of 1% lidocaine with 40 mg of Kenalog into her right shoulder joint. Reluctant to prescribe NSAIDs in light of her age and the fact he is on anticoagulant. Systemic steroids also increase chance of GI bleed. Since this is a known problem x-rays were not obtained since there is no history of direct trauma. EKG was obtained per nurse protocol. EKG Initial EKG: Attestation: I personally reviewed and interpreted this EKG as follows: Interpretation: Sinus Rhythm (Rate is 71 and EKG is normal. TX interval is 1 6 2 ms. QRS duration 80 ms. QT duration 344 ms. Manson is normal.) Procedures Other Procedures Procedure(s): Anterior lateral approach was undertaken. Skin was prepped draped. Air was no sizable percent lidocaine. The joint was entered and a 5-1 mixture of lidocaine and Kenalog was injected without difficulty. Discharge Plan Triage Chief Complaint: Chest Pain ED Provider: Bronson Charles Dx/Rx/DC Orders Clinical Impression: Subacromial impingement of right shoulder, Rotator cuff tendinitis, Bicipital tendinitis, right shoulder Instructions: ED Shoulder Impingement Syndrome Prescriptions: No Action multivitamin Tablet 1 tab PO DAILY aspirin [Adult Low Dose Aspirin] 81 mg tablet,delayed release (DR/EC) 81 mg PO DAILY conjugated estrogens 0.625 mg/gram cream 0.625 mg vaginal 2XW Rx Instructions: off 5 days; repeat cycle cholecalciferol (vitamin D3) 25 mcg (1,000 unit) tablet 25 mcg PO DAILY hydrochlorothiazide 25 mg tablet 25 mg .ROUTE .COMPLEX Rx Instructions: 25 mg; bmtiwnwr-gop-ybmdicrij-vit D3 1 EACH tablet 2 ea PO DAILY rosuvastatin 20 mg Tablet 20 mg PO DAILY warfarin 4 mg tablet 4 mg PO .COMPLEX Qty: 1 0RF Rx Instructions: 4 mg PO 1.5 tablets (6mg) daily: MANAGED BY DR. VIGIL; ramipril 10 mg capsule 10 mg PO BID Qty: 180 3RF carvedilol 3.125 mg tablet See Rx Instructions .ROUTE .COMPLEX Qty: 180 3RF Dose Instruction: TAKE 1 TABLET BY MOUTH TWICE A DAY Rx Instructions: TAKE 1 TABLET BY MOUTH TWICE A DAY amlodipine 5 mg tablet 5 mg PO DAILY Qty: 90 3RF omeprazole 40 mg capsule,delayed release(DR/EC) 40 mg PO DAILY Qty: 90 1RF Primary Care Provider: Luis A Vigil Referrals: Scott De La Fuente DO [Med Staff - Active Staff] - 1 Week if not improving Luis A Vigil MD [Primary Care Provider] - Print Language: Trinidadian Disposition Disposition: Home, Self Care
[2023-09-15] MEDS: Lidocaine 1% (20 ml mdv) 20 ML Vial 5 ML INFILT (19:03)
[2023-09-15] MEDS: Triamcinolone Acetonide 40 MG/ML Vial INTRAARTIC (19:03)
[2023-09-15 19:23] VITALS: BP 198/100; PULSE 82; RESP 18; TEMP 36.6; O2SAT 97
== END 2023-09-15 19:24 | disposition home or self-care (01) ==
PROVIDERS: Emergency Provider Emergency Medicine; PCP Family Medicine; Visit Provider Emergency Medicine
DX: M75.41 Impingement syndrome of right shoulder (principal); M77.9 Enthesopathy, unspecified; M75.21 Bicipital tendinitis, right shoulder; I10 Essential (primary) hypertension; E78.00 Pure hypercholesterolemia, unspecified; Z86.718 Personal history of other venous thrombosis and embolism; Z79.01 Long term (current) use of anticoagulants; Z79.899 Other long term (current) drug therapy; Z79.82 Long term (current) use of aspirin; K21.9 Gastro-esophageal reflux disease without esophagitis; Z90.710 Acquired absence of both cervix and uterus; Z90.722 Acquired absence of ovaries, bilateral
CPT/HCPCS: 93005; 96374; 99282

== ENCOUNTER → 2023-12-25 | Outpatient (CLI) | payer MEDICARE, BC, SELFPAY ==
--- NOTE | 2023-12-25 18:42 | MRI_ITS ---
STUDY: MRI RIGHT SHOULDER REASON FOR EXAM: Female, 73 years old. Pain. TECHNIQUE: Standardized fat and water weighted pulse sequences were obtained in all 3 orthogonal planes. COMPARISON: Right shoulder MRI dated 01/10/2018. FINDINGS: There is supraspinatus tendinosis with a high-grade partial thickness articular surface tear of the distal supraspinatus tendon, overall measuring 3 mm in length (coronal T2 series 16 image 17) and 2 mm in width (sagittal T2 series 13 image 18; axial T2 series 12 image 13). Normal infraspinatus tendon. Normal subscapularis tendon. Normal teres minor tendon. Normal supraspinatus muscle. Normal infraspinatus muscle. Normal subscapularis muscle. Normal teres minor muscle. Normal glenohumeral articulation. Normal humeral head and visualized proximal humerus. Normal biceps labral complex. Normal intracapsular long biceps tendon. Normal labrum. Normal capsulo-ligamentous complex. Normal rotator interval. There is mild hypertrophic acromioclavicular arthrosis (sagittal T2 series 13 images 23-24). There is a Type II morphology (curved), with a neutral orientation. There is trace subacromial-subdeltoid bursal fluid. Normal visualized coracohumeral and coracoacromial ligaments. Normal quadrilateral space. Normal axillary space. Normal deltoid muscle. Normal trapezius muscle. MRI/Upper Ext Joint Only(Routine) IMPRESSION: Supraspinatus tendinosis with a 3 x 2 mm high-grade partial thickness articular surface tear of the distal supraspinatus tendon. Mild hypertrophic acromioclavicular arthrosis. Minimal subacromial-subdeltoid bursitis. Electronically Signed: Nolan Levy MD at 9:06 EDT ,
== END | disposition home or self-care (01) ==
LOC: MRI 12:35
PROVIDERS: PCP Family Medicine; Referring Provider Orthopaedic Surgery; Visit Provider Orthopaedic Surgery
DX: M75.81 Other shoulder lesions, right shoulder (principal); I82.409 Acute embolism and thrombosis of unspecified deep veins of unspecified lower extremity; S46.111D Strain of muscle, fascia and tendon of long head of biceps, right arm, subsequent encounter; M19.011 Primary osteoarthritis, right shoulder
CPT/HCPCS: 36415; 73221; 85610

== ENCOUNTER 2023-12-29 11:42 | Outpatient (RCR) | payer MEDICARE, BC, SELFPAY ==
[2023-12-20 11:13] LABS: Prothrombin Time Fingerstick 47.5 SEC (11.7-14.9)
[2023-12-20 12:30] LABS: Prothrombin Time (Protime)PT. 52.1 SECONDS (11.7-14.9)
[2023-12-20 13:42] LABS: International Normalized Ratio 5.9
[2023-12-21 10:38] LABS: Prothrombin Time (Protime)PT. 49.6 SECONDS (11.7-14.9)
[2023-12-21 11:20] LABS: International Normalized Ratio 5.5
[2023-12-22 12:42] LABS: International Normalized Ratio 3.3; Prothrombin Time (Protime)PT. 33.1 SECONDS (11.7-14.9)
[2023-12-25 15:12] LABS: International Normalized Ratio 1.3; Prothrombin Time (Protime)PT. 15.7 SECONDS (11.7-14.9)
[2024-01-01 13:04] LABS: INR Fingerstick 1.7; Prothrombin Time Fingerstick 18.4 SEC (11.7-14.9)
== END 2023-12-29 18:00 | disposition home or self-care (01) ==
LOC: MTLAB 11:42
PROVIDERS: PCP Family Medicine; Referring Provider Registered Nurse; Visit Provider Registered Nurse
DX: I82.409 Acute embolism and thrombosis of unspecified deep veins of unspecified lower extremity (principal)
CPT/HCPCS: 36415; 36416; 85610

== ENCOUNTER → 2023-12-29 | Outpatient (CLI) | payer MEDICARE, BC, SELFPAY ==
--- NOTE | 2023-12-29 10:54 | BI_ITS ---
MAMMOGRAPHY - BILATERAL SCREENING REASON FOR EXAM: Female, 73 years old. Routine annual screening examination. PERTINENT HISTORY: Non-contributory. TECHNIQUE: Digital bilateral breast ganesh (3D mammographic acquisition) in the CC and MLO projections. 2-D mediolateral oblique (MLO) and craniocaudad (CC) views of both breasts were obtained. CAD: Full Field Digital Mammography with Computer Added Detection was performed. COMPARISON: Comparison is made with prior examination of June 16, 2022 and April 05, 2021. FINDINGS: Breast Composition: The breasts are heterogeneously dense, which may obscure small masses. There are no dominant masses or suspicious calcifications. No other significant abnormalities are identified. There has been no significant change since the prior study. BI/SCRN MAMM (CAD)W/GANESH BILAT IMPRESSION: Stable bilateral screening mammogram. Yearly follow-up mammogram recommended. (A) ASSESSMENT CATEGORY: BIRADS Category 1: Negative. A letter regarding these results will be sent to the patient by the facility within 30 days. Approximately 10% of breast cancers are not detected by mammography. A normal mammogram should not delay biopsy of a clinically suspicious abnormality. [id number] Electronically Signed: Haseeb Jacobo MD at 12:12 EDT ,
--- NOTE | 2023-12-29 10:54 | BD_ITS ---
STUDY: DUAL ENERGY X-RAY ABSORPTIOMETRY / DXA REASON FOR EXAM: Female, 73 years old. 627.8Menopausal postmenopausalBONE DENSITY REASON FOR EXAM TECHNIQUE: Bone Mineral Density (BMD) measurements of lumbar spine and bilateral hips were obtained. COMPARISON: Comparison is made with prior study December 01, 2021. FINDINGS: Lumbar Spine (L1-L4): g/cm2 (0.977) / T-score (-0.6) / Z-score (1.8) Findings are suggestive of normal bone density with a low fracture risk. Left Femur Total: g/cm2 (0.910) / T-score (-0.3) / Z-score (1.5) Left Femoral Neck: g/cm2 (0.652) / T-score (-1.8) / Z-score (0.3) Right Femur Total: g/cm2 (0.879) / T-score (-0.5) / Z-score (1.3) Right Femoral Neck: g/cm2 (0.675) / T-score (-1.6) / Z-score (0.5) The T-Scores on the most recent prior examination were: Lumbar Spine (L1-L4): There has been improvement of bone density since the previous examination. Left Femur Total: which represents an improvement of 3.1%. Right Femur Total: which represents an improvement of 1.6%. BD/Dexa Bone Density Study IMPRESSION: The patient is considered osteopenic as outlined below according to World Tyler Organization (WHO) criteria with a moderate fracture risk. There has been improvement of bone density since the previous examination. Reference Information: The T-score is the number of standard deviations above or below the standard which is normal for young adults at their peak bone mineral density. The World Health Organization (WHO) interprets the T-scores as follows: Above -1 Normal bone density Between -1 and -2.5 Osteopenia Equal to / or below -2.5 Osteoporosis As a practical clinical guideline, osteopenia may be graded as follows: Mild -1 through -1.5 Moderate -1.6 through -2.0 Severe -2.1 through -2.4 The Z-score is the number of standard deviations above or below age-matched controls. A Z-score of less than -1.5 would be considered abnormal. References: 1. NIH Osteoporosis and Related Bone Diseases www osteo.org 2. International Society for Clinical Densitometry www iscd.org 3. National Osteoporosis Foundation www nof.org Electronically Signed: Haseeb Jacobo MD at 13:13 EDT ,
== END | disposition home or self-care (01) ==
LOC: OPBD 10:51
PROVIDERS: PCP Family Medicine; Referring Provider Family Medicine; Visit Provider Family Medicine
DX: Z00.00 Encounter for general adult medical examination without abnormal findings (principal); Z12.31 Encounter for screening mammogram for malignant neoplasm of breast; M85.80 Other specified disorders of bone density and structure, unspecified site; N95.9 Unspecified menopausal and perimenopausal disorder
CPT/HCPCS: 77063; 77067; 77080

== ENCOUNTER → 2024-01-30 | Outpatient (CLI) | payer MEDICARE, BC, SELFPAY ==
[2024-01-30 15:09] LABS: Absolute Neutrophil Count 2.4 X10^3/uL (2.0-7.7); Basophil# 0.04 X10^3/uL; Basophil% 0.9 % (0-1); Eosinophil# 0.07 X10^3/uL; Eosinophils% 1.6 % (0-5); Hematocrit 41.7 % (37-47); Hemoglobin 13.8 g/dL (12.0-15.0); Lymphocyte % 32.6 % (19-41); Mean Corp Hgb Conc 33.1 g/dL (32-36); Mean Corpuscular Hgb 30.7 pg (27.0-32.0); Mean Corpuscular Volume 92.7 fL (81-99); Mean Platelet Vol. 11.5 fl (6.2-12.0); Monocyte# 0.43 X10^3/uL; NRBC Flagged by Analyzer 0 % (0-5); Neutrophil # 2.35 X10^3/uL (2.7-7.7); Neutrophil % 54.7 % (47-70); Platelet Count 277 K/mm3 (150-450); RBC Distribution Width CV 13.6 % (11.6-14.6); RBC Distribution Width SD 46.5 fl (35.1-43.9); White Blood Count 4.3 K/mm3 (4.4-11.0)
[2024-01-30 15:27] LABS: Vitamin D,25 Hydroxy 46.2 ng/mL
[2024-01-30 15:30] LABS: ALB/GLOB Ratio 1.1 RATIO (0.9-2.4); AST(SGOT) 28 U/L (15-37); Alanine Aminotransfer ALT/SGPT 32 U/L (13-56); Albumin, Serum 3.9 g/dL (3.2-5.0); Alkaline Phosphatase 54 U/L (45-117); Anion Gap 4 (5-15); BUN 15 mg/dL (7-18); BUN/Creat Ratio 17.9 RATIO (10-20); Calcium,Total 9.9 mg/dL (8.5-10.1); Chloride 104 mmol/L (98-107); Cholesterol 157 mg/dL (200); Creatinine, Serum 0.84 mg/dL (0.55-1.02); EST Glomerular Filtration Rate 71 mL/min (>60); Est Glom Filt Rate - Afr Amer 85 mL/min (>60); Globulin 3.6 g/dL (2.2-4.2); Glucose 125 mg/dL (74-106); High Density Lipoprotein 59 mg/dL; Magnesium 1.9 mg/dL (1.6-2.6); Potassium 3.2 mmol/L (3.5-5.1); Protein, Total 7.5 g/dL (6.4-8.2); Sodium Level 137 mmol/L (136-145); Triglycerides 136 mg/dL; Very Low Density Lipoprotein 27 mg/dL (5-40)
[2024-01-30 16:03] LABS: Hemoglobin A1c 5.7 % (3.8-5.6)
== END | disposition home or self-care (01) ==
LOC: MTLAB 12:50
PROVIDERS: PCP Family Medicine; Referring Provider Family Medicine; Visit Provider Family Medicine
DX: I10 Essential (primary) hypertension (principal); E78.00 Pure hypercholesterolemia, unspecified; M85.80 Other specified disorders of bone density and structure, unspecified site; R73.02 Impaired glucose tolerance (oral)
CPT/HCPCS: 36415; 80053; 80061; 82306; 83036; 83735; 84443; 85025

== ENCOUNTER 2024-02-06 11:43 | Outpatient (RCR) | payer MEDICARE, BC, SELFPAY ==
[2024-02-06 15:27] LABS: Prothrombin Time (Protime)PT. 46.4 SECONDS (11.7-14.9)
[2024-02-06 15:31] LABS: Potassium 3.9 mmol/L (3.5-5.1)
[2024-02-06 17:06] LABS: International Normalized Ratio 5.1
== END 2024-02-06 18:00 | disposition home or self-care (01) ==
LOC: MTLAB 11:43
PROVIDERS: PCP Family Medicine; Referring Provider Registered Nurse; Visit Provider Registered Nurse
DX: I82.409 Acute embolism and thrombosis of unspecified deep veins of unspecified lower extremity (principal); E87.6 Hypokalemia
CPT/HCPCS: 36415; 84132; 85610

== ENCOUNTER 2024-02-28 08:17 | Day surgery (SDC) | payer MEDICARE, BC, SELFPAY ==
[2024-02-28] VITALS (10 sets, daily range): BP systolic 104–172; BP diastolic 51–86; PULSE 58–75; RESP 16–18; TEMP 35.8–36.3; O2SAT 93–100; BMI 28.3
[2024-02-28 08:28] LABS: Prothrombin Time Fingerstick 12.3 SEC (11.7-14.9)
--- NOTE | 2024-02-28 08:56 | PRE.ANES_ITS ---
ASA Classification* ASA Classification ASA Classification: 2 Assessment & Plan Anesthesia* Anesthesia Assessment Anesthesia Assessment: Discussed sedation and/or anesthesia options, risks, benefits, and alternatives with patient/parents/legal guardian/POA. Questions invited. The patient/parents/legal guardian/POA seems to understand and agrees to proceed with anesthesia plan. Reviewed the physical assessment, medical history, allergy history and patient home medications list prior to surgery/procedure/anesthetic and documented any changes. Performed airway and anesthesia risk assessments. Anesthesia Type Anesthesia Type: General and Block Anesthesia Focused Assessment* Temperature: 97.3 F Pulse Rate: 62 Blood Pressure: 172/86 Respiratory Rate: 18 Pulse Ox: 100 Airway Assessment Mouth opens: >3 cm Mallampati Score: II Focused Labs Anesthesia Preop lab: CBC WBC 4.3 K/mm3 (4.4-11.0) L 01/30/24 13:12 RBC 4.50 M/mm3 (4.2-5.4) 01/30/24 13:12 Hgb 13.8 g/dL (12.0-15.0) 01/30/24 13:12 Hct 41.7 % (37-47) 01/30/24 13:12 Plt Count 277 K/mm3 (150-450) 01/30/24 13:12 CHEMISTRY Potassium 3.9 mmol/L (3.5-5.1) 02/06/24 11:53 Sodium 137 mmol/L (136-145) 01/30/24 13:12 Magnesium 1.9 mg/dL (1.6-2.6) 01/30/24 13:12 BUN 15 mg/dL (7-18) 01/30/24 13:12 Creatinine 0.84 mg/dL (0.55-1.02) 01/30/24 13:12 Glucose 125 mg/dL (74-106) H 01/30/24 13:12 TSH 1.120 uIU/mL (0.358-3.740) 01/30/24 13:12 COAG PT 46.4 SECONDS (11.7-14.9) H 02/06/24 11:53 Pre-Assessment Diagnosis/Proposed Procedure Planned Operative Procedure(s): RIGHT SHOULDER ARTHROSCOPY SUBCROMIAL DECOMPRESSION RTC REPAIR Anesthesia History 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 When Was Last Pacemaker Check QUESTION #4 FULL TEXT: You/Your Family Experience fever (hyperthermia) with Anesthesia Last Oral Intake Last Oral intake: Last Oral Intake NPO since 04:30 02/28/24 08:46 Meds taken in AM with sips of Yes 02/28/24 08:46 water? Meds patient instructed to see medlist 02/28/24 08:46 take am of surgery PONV PONV - commissary steward: PONV - commissary steward Female Yes 02/14/24 09:59 HX of Motion Sickness No 02/14/24 09:59 HX of N/V After Surgery No 02/14/24 09:59 Non-Smoker Yes 02/14/24 09:59 Duration of Surgery greater Yes 02/14/24 09:59 than 60 minutes Number of Risk Factors 3 02/14/24 09:59 PONV Score Moderate Risk 02/14/24 09:59 Height & Weight Height & Weight: Anesthesia: Height & Weight Height 5 ft 4 in 02/28/24 08:46 Weight: 75 kg 02/28/24 08:46 Body Mass Index (BMI) 28.3 02/28/24 08:46 Respiratory Assessment Respiratory Assessment - commissary steward: Respiratory Tract Infection Hx - commissary steward Hx Respiratory Tract Infection No 02/14/24 09:59 STOP Sleep Apnea STOP Sleep Apnea - commissary steward: STOP Sleep Apnea - commissary steward Hx Hypertension Yes: CONTROLLED WITH MED FOR 02/14/24 09:59 MOST PART/WHITE COAT SYNDROME Hx Sleep Apnea No 02/14/24 09:59 CPAP BIPAP Do you snore loudly (louder No 02/14/24 09:59 than talking or can be heard Do you often feel tired/ Yes 02/14/24 09:59 fatigued/ sleepy during daytime? Has anyone observed you stop No 02/14/24 09:59 breathing during sleep? STOP Results Positive 02/14/24 09:59 QUESTION #5 FULL TEXT : Do you snore loudly (louder than talking or can be heard through closed doors)? 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 Specify any problems Hx of Preganancy in last 3 No 02/14/24 09:59 Months Nurse Filling Out Transfusion DSCHRIBER 02/14/24 09:59 & Questions: Date: 02/14/24 02/14/24 09:59 Time: 10:01 02/14/24 09:59 Patient unable to answer at this time (ie. confused, unrespo /Reproduction History /Reproductive History - commissary steward: /Reproductive Hx- commissary steward Hx Now No 02/14/24 09:59 Gestational Age (in weeks): EDC: Hx Hx Para Hx Section SAB No 02/14/24 09:59 Active Medications Active Medications: Current Medications Generic Name Dose Route Start Last Admin Trade Name Freq PRN Reason Stop Dose Admin Cefazolin Sodium 2 gm/ N/A 20 mls @ 400 mls/hr 02/28/24 10:05 IV 02/28/24 10:07 PREOP ONE Lactated Ringer's 1,000 mls @ 15 mls/hr 02/28/24 09:00 IV 03/04/24 22:19 .Q48H [facility] Protocol PFSH Medical History Cancer Easy bruising History of edema Right rotator cuff tear Right shoulder pain Wears glasses Wears contact lenses Post-menopausal Alcohol use Arthritis DVT (deep venous thrombosis) Gastric reflux Non-smoker Leg cramps History of echocardiogram Cardiology follow-up encounter Valvular heart disease Carotid artery stenosis Presence of IVC filter History of DVT (deep vein thrombosis) Essential hypertension Pure hypercholesterolemia Pulmonary embolism Malignant neoplasm of ovary Home Medications ?Medication ?Instructions ?Recorded ?Last Taken ?Type glucosamine 750 mg-msm 125 2 ea PO DAILY 02/03/18 Unknown History mg-chondroitin 600 mg-D3 1,000 unit tablet multivitamin 1 tab PO DAILY 11/19/18 Unknown History rosuvastatin 20 mg tablet 20 mg PO DAILY 09/09/21 Unknown History aspirin 81 mg tablet,delayed 81 mg PO DAILY 02/10/22 Unknown History release (Adult Low Dose Aspirin) cholecalciferol (vitamin D3) 25 25 mcg PO DAILY 02/10/22 Unknown History mcg (1,000 unit) tablet ramipril 10 mg capsule 10 mg PO BID #180 caps 03/08/22 Unknown Rx amlodipine 5 mg tablet 5 mg PO DAILY #90 tabs 06/08/23 02/28/24 Rx acetaminophen 500 mg tablet 500 mg PO Q6H PRN pain 02/14/24 Unknown History (Acetaminophen Extra Strength) hydrochlorothiazide 25 mg tablet 25 mg PO DAILY 02/14/24 Unknown History omeprazole 40 mg capsule,delayed 40 mg PO DAILY PRN PRN GERD 02/14/24 02/28/24 History release warfarin 4 mg tablet 6 mg PO DAILY 02/14/24 02/22/24 History carvedilol 3.125 mg tablet See Rx Instructions .Route 02/26/24 02/28/24 Rx .COMPLEX #180 tabs Allergy/AdvReac Type Severity Reaction Status Date / Time benazepril (From Lotrel) AdvReac Severe ankle Verified 02/28/24 08:44 swelling and myalgias metoprolol (From Lopressor) AdvReac sluggish Verified 02/28/24 08:44 Family History Father Hypertension Heart disease Prostate CA Mother Hypertension Grandmother Goiter Daughter Kidney disease Hypertension Cancer skin Surgical History History of evacuation of hematoma Hx of colonoscopy History of basal cell carcinoma excision (~04/2019) H/O bilateral oophorectomy H/O: hysterectomy Social History household members: children housing: house current occupational status: employed current occupation: [employer] pets and animals: Yes pets and animals: dog(s) Smoking Status: Never smoker second hand exposure: No alcohol intake: current alcohol intake frequency: a few times a month Alcohol type: wine details: occasional substance use type: does not use caffeine: Yes Type: coffee Number of servings: 1 Review of Systems (Anesthesia) ROS Narrative System reviewed and no additional complaints, except as documented.
[2024-02-28] MEDS: Lactated Ringers 1,000 ML 15 ML IV (09:05)
--- NOTE | 2024-02-28 09:24 | HP.PCM_ITS ---
HPI - General HPI Narrative CHRISTINA GARCIA, is a 73 F who presents for right shoulder arthroscopy, subacromial decompression, rotator cuff repair. no changes to h and p. shoulder marked. rab and post op instructions and narcotic counselling. ok to proceed. MR#: [id number] Acct: [id number] Name: CHRISTINA GARCIA Rep #: [id number] : 1950 Provider: Dr. Renny Russell MD Age/Sex: 73/F Location: [facility] [place] Status: Signed Intake Vital Signs 09/14/2417:16 Height 5 ft 4 in Intake Visit Reasons: RIGHT SHOULDER Accompanied by: Self Is patient in pain?: Yes Pain scale (1-10): 2 Allergies benazepril (From Lotrel) Adverse Reaction (Severe, Verified 01/09/24 09:20) ankle swelling and myalgiasmetoprolol (From Lopressor) Adverse Reaction (Verified 01/09/24 09:20) sluggish Medications ?Medication ?Instructions ?Recorded ?Confirmed ?Type glucosamine 750 mg-msm 125 2 ea PO DAILY 02/03/18 01/09/24 History mg-chondroitin 600 mg-D3 1,000 unit tablet multivitamin 1 tab PO DAILY 11/19/18 01/09/24 History warfarin 4 mg tablet 4 mg PO .COMPLEX #1 TAB 06/08/21 01/09/24 Rx rosuvastatin 20 mg tablet 20 mg PO DAILY 09/09/21 01/09/24 History aspirin 81 mg tablet,delayed 81 mg PO DAILY 02/10/22 01/09/24 History release (Adult Low Dose Aspirin) cholecalciferol (vitamin D3) 25 25 mcg PO DAILY 02/10/22 01/09/24 History mcg (1,000 unit) tablet ramipril 10 mg capsule 10 mg PO BID #180 caps 03/08/22 01/09/24 Rx carvedilol 3.125 mg tablet See Rx Instructions .Route 03/06/23 01/09/24 Rx .COMPLEX #180 tabs amlodipine 5 mg tablet 5 mg PO DAILY #90 tabs 06/08/23 01/09/24 Rx omeprazole 40 mg capsule,delayed 40 mg PO DAILY #90 caps 08/17/23 01/09/24 Rx release hydrochlorothiazide 25 mg tablet See Rx Instructions .Route 11/13/23 01/09/24 Rx .COMPLEX #45 tabs conjugated estrogens 0.625 mg/gram 0.625 mg vaginal 2XW PRN 12/13/23 01/09/24 History vaginal cream Have you fallen in the past year?: Yes PFSH Medical History (Updated 01/09/24 @ 09:37 by Renny Russell MD) Right rotator cuff tear Right shoulder pain Wears glasses Wears contact lenses Post-menopausal Alcohol use History of steroid therapy Arthritis DVT (deep venous thrombosis) Easy bruising Gastric reflux Non-smoker Shortness of breath on exertion Leg cramps History of echocardiogram Cardiology follow-up encounter Valvular heart disease Carotid artery stenosis Presence of IVC filter History of DVT (deep vein thrombosis) Essential hypertension Pure hypercholesterolemia Pulmonary embolism Malignant neoplasm of ovary Surgical History History of basal cell carcinoma excision (~04/2019) ABD ablation H/O bilateral oophorectomy H/O: hysterectomy Family History Father Hypertension Heart disease Prostate CAMother HypertensionGrandmother GoiterDaughter Kidney disease Hypertension Cancer skin Social History household members: children housing: house current occupational status: employed current occupation: [employer] pets and animals: Yes pets and animals: dog(s) Smoking Status: Never smoker second hand exposure: No alcohol intake: current alcohol intake frequency: a few times a month Alcohol type: wine details: occasional substance use type: does not use caffeine: Yes Type: coffee Number of servings: 1 HPI RIGHT SHOULDER Details: This documentation accurately reflects the service provided and the decisions made by me, Dr. Renny Russell MD 01/09/24 0919. Part of today?s visit was documented by [ ], acting as scribe. CHRISTINA GARCIA is a 73 year old F here today for R shoulder pain. 5 years. comes and goes. has had many injections per the patient. reviewed dr small notes and xr / MRI. cortisone injections have been helping. sometimes had to go to the ED for this. location of the pain is mostly posterior shoulder pain, somewhat into the trap muscle. level of the pain is 2/10. ongoing throbbing that I can live with. RHD. retired, likes to use [employer] and 3 grand sons. lives in a condo. Ortho Exam General General: Yes no acute distress Neurologic: Yes alert and Yes oriented x3 Psychologic: Yes reasonable and appropriate Right Shoulder Skin/Wound: Yes CDI, No ecchymosis, No erythema and No swelling Testing: Positive Hawkin's, Neer's, AROM-Forward Elevation 0-180, AROM-External Rotation at side 0-60, empty can and belly press normal; Negative Speed's, TTP Biceps, TTP AC Joint, Drop Arm, cross arm or scapular winging Internal Rotation: L3 SHOULDER: normal motor and sens to ax nerve, and MRU and AIN/PIN fe strength 4+. er 5/5. full ROM, mild pain at the trapezius. Supplemental Info [facility] [address] [place] [address] Shoulder min 2 Views MR#: [id number] Acct: [id number] Name: CHRISTINA GARCIA Rep #: [id number] : 1950 F 73 From: Nolan Levy MD PCP: Dr. Luis A Vigil MD Status: DEP AMB Study: Shoulder min 2 Views Date of Exam: 10/06/23 Exam# [id number] Ordering Dr: Scott Small DO STUDY: X-RAY - RIGHT SHOULDER REASON FOR EXAM: Female, 73 years old. Pain. TECHNIQUE: 4 views of the right shoulder. COMPARISON: None. FINDINGS: There is a 2 mm rounded calcific density at the superior margin of the glenohumeral joint, which could represent a small calcified loose body. Normal glenohumeral articulation. There is mild acromioclavicular arthrosis. Normal acromion. Intact humeral head and visualized proximal humerus. The soft tissue structures are unremarkable. There is no demonstrated acute fracture. Normal visualized pulmonary apex. RAD/Shoulder min 2 Views IMPRESSION: 2 mm rounded calcific density at the superior margin of the glenohumeral joint, which could represent a small calcified loose body. Mild acromioclavicular arthrosis. Electronically Signed: Nolan Levy MD at 15:40 EDT , [facility] [address] [place] [address] Upper Ext Joint Only(Routine) MR#: [id number] Acct: [id number] Name: CHRISTINA GARCIA Rep #: [id number] : 1950 F 73 From: Nolan Levy MD PCP: Dr. Luis A Vigil MD Status: REG CLI Study: Upper Ext Joint Only(Routine) Date of Exam: 12/25/23 Exam# [id number] Ordering Dr: Scott Small DO STUDY: MRI RIGHT SHOULDER REASON FOR EXAM: Female, 73 years old. Pain. TECHNIQUE: Standardized fat and water weighted pulse sequences were obtained in all 3 orthogonal planes. COMPARISON: Right shoulder MRI dated 01/10/2018. FINDINGS: There is supraspinatus tendinosis with a high-grade partial thickness articular surface tear of the distal supraspinatus tendon, overall measuring 3 mm in length (coronal T2 series 16 image 17) and 2 mm in width (sagittal T2 series 13 image 18; axial T2 series 12 image 13). Normal infraspinatus tendon. Normal subscapularis tendon. Normal teres minor tendon. Normal supraspinatus muscle. Normal infraspinatus muscle. Normal subscapularis muscle. Normal teres minor muscle. Normal glenohumeral articulation. Normal humeral head and visualized proximal humerus. Normal biceps labral complex. Normal intracapsular long biceps tendon. Normal labrum. Normal capsulo-ligamentous complex. Normal rotator interval. There is mild hypertrophic acromioclavicular arthrosis (sagittal T2 series 13 images 23-24). There is a Type II morphology (curved), with a neutral orientation. There is trace subacromial-subdeltoid bursal fluid. Normal visualized coracohumeral and coracoacromial ligaments. Normal quadrilateral space. Normal axillary space. Normal deltoid muscle. Normal trapezius muscle. MRI/Upper Ext Joint Only(Routine) IMPRESSION: Supraspinatus tendinosis with a 3 x 2 mm high-grade partial thickness articular surface tear of the distal supraspinatus tendon. Mild hypertrophic acromioclavicular arthrosis. Minimal subacromial-subdeltoid bursitis. Electronically Signed: Nolan Levy MD at 9:06 EDT Reading Location ID and State: [address] [place] [address] , Service support , I independently reviewed the imaging. Concur with radiologist report. Coding Level of Care Code Off vis,est,level 4 Diagnoses Tendinitis of right rotator cuff M75.81 Tendinitis of right rotator cuff M75.81 Laterality: right Right shoulder pain M25.511 Right rotator cuff tear M75.101 Assessment and Plan Assessment and Plan (1) Tendinitis of right rotator cuff: Status: Acute Plan: 73-year-old female with right shoulder pain ongoing despite conservative measures including multiple cortisone injections. The patient has a partial articular sided tear no glenohumeral arthritis joint space was well-preserved on the x-rays. This seems to be pain from the rotator cuff tear as well as impingement and bursitis. When I went over the diagnosis prognosis and different treatment options available include but not limited to doing nothing rest ice anti-inflammatories physical therapy cortisone injections other nonoperative treatments as well as surgery. Patient is interested in a surgical solution. This would be in the form of right shoulder arthroscopy, subacromial decompression, rotator cuff repair. I would likely do this in a pasta trans tendon knotless repair technique. Sometimes this necessitates takedown and rerepair. General recovery is 2 weeks in a sling in 3 months before going back to any sort of significant heavy lifting. The patient understands wished to pro ceed with surgery signed the consent form for that as well as possible need for blood products. They understood no further questions or concerns. Patient has a history of IVC filter on warfarin would have to come off that we will get a consult from her family doctor as well as increased risks given heart disease and recent history of cellulitis this may increase the chance of an infection or other complications. Pros and cons risks and benefits were discussed with the patient including but not limited to infection, pain, stiffness, bleeding, damage to surrounding structures, neurovascular injury, recurrence or retear, failure or wear of hardware or fixation, instability, fracture, deep vein thrombosis and pulmonary embolism, anesthetic risks, , patient dissatisfaction, need for further surgery and other risks. Patient understood and wished to proceed with surgery, and signed the informed consent documentation. (2) Rotator cuff tendinitis: Status: Acute Qualifiers: Laterality: right Qualified Code(s): M75.81 - Other shoulder lesions, right shoulder (3) Right shoulder pain: Status: Acute (4) Right rotator cuff tear: Status: Acute [facility] Medical History Cancer Easy bruising History of edema Right rotator cuff tear Right shoulder pain Wears glasses Wears contact lenses Post-menopausal Alcohol use Arthritis DVT (deep venous thrombosis) Gastric reflux Non-smoker Leg cramps History of echocardiogram Cardiology follow-up encounter Valvular heart disease Carotid artery stenosis Presence of IVC filter History of DVT (deep vein thrombosis) Essential hypertension Pure hypercholesterolemia Pulmonary embolism Malignant neoplasm of ovary Home Medications ?Medication ?Instructions ?Recorded ?Last Taken ?Type glucosamine 750 mg-msm 125 2 ea PO DAILY 02/03/18 Unknown History mg-chondroitin 600 mg-D3 1,000 unit tablet multivitamin 1 tab PO DAILY 11/19/18 Unknown History rosuvastatin 20 mg tablet 20 mg PO DAILY 09/09/21 Unknown History aspirin 81 mg tablet,delayed 81 mg PO DAILY 02/10/22 Unknown History release (Adult Low Dose Aspirin) cholecalciferol (vitamin D3) 25 25 mcg PO DAILY 02/10/22 Unknown History mcg (1,000 unit) tablet ramipril 10 mg capsule 10 mg PO BID #180 caps 03/08/22 Unknown Rx amlodipine 5 mg tablet 5 mg PO DAILY #90 tabs 06/08/23 02/28/24 Rx acetaminophen 500 mg tablet 500 mg PO Q6H PRN pain 02/14/24 Unknown History (Acetaminophen Extra Strength) hydrochlorothiazide 25 mg tablet 25 mg PO DAILY 02/14/24 Unknown History omeprazole 40 mg capsule,delayed 40 mg PO DAILY PRN PRN GERD 02/14/24 02/28/24 History release warfarin 4 mg tablet 6 mg PO DAILY 02/14/24 02/22/24 History carvedilol 3.125 mg tablet See Rx Instructions .Route 02/26/24 02/28/24 Rx .COMPLEX #180 tabs Allergy/AdvReac Type Severity Reaction Status Date / Time benazepril (From Lotrel) AdvReac Severe ankle Verified 02/28/24 08:44 swelling and myalgias metoprolol (From Lopressor) AdvReac sluggish Verified 02/28/24 08:44 Family History Father Hypertension Heart disease Prostate CA Mother Hypertension Grandmother Goiter Daughter Kidney disease Hypertension Cancer skin Surgical History History of evacuation of hematoma Hx of colonoscopy History of basal cell carcinoma excision (~04/2019) H/O bilateral oophorectomy H/O: hysterectomy Social History household members: children housing: house current occupational status: employed current occupation: [employer] pets and animals: Yes pets and animals: dog(s) Smoking Status: Never smoker second hand exposure: No alcohol intake: current alcohol intake frequency: a few times a month Alcohol type: wine details: occasional substance use type: does not use caffeine: Yes Type: coffee Number of servings: 1 Vital Signs Vital Signs Vital Signs: 02/28/24 08:46 02/28/24 08:46 02/28/24 08:57 Temperature 97.3 F L 97.3 F L Temperature Source Temporal Pulse Rate 62 62 Respiratory Rate 18 18 Respiratory Pattern Normal Blood Pressure 172/86 H 172/86 H Blood Pressure Mean 114 Blood Pressure Source Monitor Blood Pressure Position Sitting Blood Pressure Location Left Arm Pulse Ox 100 100 Oxygen Delivery Method Room Air Weight Weight: 165 lb 5.547 oz Body Mass Index (BMI) 28.3 Results Lab / Micro Data Labs: Laboratory Results - last 24 hr 02/28/24 08:25: POC PT 12.3, INR 1.0
--- NOTE | 2024-02-28 10:05 | SYN_PTH ---
PATIENT: CHRISTINA GARCIA LOC: [facility] [place] U#:[id number] AGE/SX: 73/F ROOM: RE02/28/[address]: Dr. Renny Russell MD : 1950 BED: DIS: 02/28/2024 SPEC #: [id number] RECD: 02/28/24 14:01 STATUS: APRIL REClaudette #: [id number] CARMEN: 02/28/24 10:[address]: Renny Russell DEPT: SURGICAL PATHOLOGY RECD BY: Urvashi Soliman ENTERED: 02/29/24 08:08 SP TYPE: SYNOVIUM OTHR DR: Dr. Luis A Vigil MD Tissues: Synovial tissue of joint, NOS Procedures: Special Stain Group I Surgery Specimen Level IV Iron Stain (control) HEADER OPERATION: Right shoulder arthroscopy, subacromial decompression PRE-OP DIAGNOSIS: Tendinitis of right rotator cuff TISSUE SUBMITTED: Synovium rotator interval MICROSCOPIC DIAGNOSIS Synovium rotator interval, excision: Fragments of fibroconnective tissue, skeletal muscle tissue and reactive synovial tissue with old hemorrhage. See comment. 03/01/2024 COMMENT Iron stain with matched control was used in the evaluation of this case. Clinical correlation and appropriate follow up are necessary. MICROSCOPIC DESCRIPTION Slides are reviewed. GROSS DESCRIPTION Received in fixative is one container labeled with the patient's name and designated Synovial rotator interval. The specimen consists of two fragments of pink-red soft tissue measuring in aggregate 0.5 x 0.5 x 0.1cm. The entire specimen is submitted in one cassette. 02/29/2024 TC:5 CPT:73182,01738
[2024-02-28] MEDS: Cefazolin 2 GM in Syringe IV (10:32)
[2024-02-28] MEDS: Epinephrine (1 mg/ml) 1 MG/ML VIAL (10:35)
--- NOTE | 2024-02-28 11:40 | PCM.OPRPT ---
Problems Associated Problem List Diagnoses (1) Tendinitis of right rotator cuff: (2) Partial tear of right rotator cuff: Operative Report (Standard) Operative Information Surgery/Procedure Performed: right shoulder arthroscopy, subacromial decompression, extensive debridement, rotator cuff repair Surgeon: Renny Russell Date of Procedure: 02/28/24 Procedure Start Time: 10:35 Procedure Stop Time: 11:40 Pre-Operative Diagnosis: Right rotator cuff tear Post-Operative Diagnosis: Same Select all DRAINS/GRAFTS/IMPLANTS that apply: Implanted device Implanted device details: Arthrex fiber tack anchors and swivel lock anchor Type of Anesthesia: Block,Regional and General Estimated Blood Loss: 50 Specimen collected: Yes Description of specimen(s) removed: Brown appearing synovial tissue from the rotator interval ?pvns Description of surgery: Patient brought the operating room theater. Placed supine on the table. General anesthesia induced. 2 g of IV Ancef administered prior to the start of the procedure. Patient transferred right side up lateral decubitus beanbag positioner. Axillary roll placed. SCDs on the legs. All bony prominences padded. Arm in traction 10 pounds of traction 45 degrees of abduction. Upper extremity prepped and draped in the usual sterile fashion with chlorhexidine-based prep solution allowing over 3 minutes drying time prior to draping. Preoperative timeout performed to confirm the site patient and the surgery. Began by inserting the arthroscope into the intra-articular portion of the shoulder did a full diagnostic arthroscopy. Established an anterior portal through the rotator interval using inside out spinal needle localization. There was brown appearing synovitic tissue throughout the intra-articular portion of the shoulder. I sent a specimen through the rotator interval (?Pvns) and gently debrided this while trying to preserve as much of the capsular tissue as possible. Biceps root attachment appeared normal as did the subscapularis. There is a grade 1-2 changes on both the cartilage on the humeral head as well as the glenoid. 1 small area at the anterior superior area of the glenoid was gently debrided for an area of grade 3 changes. Some loose cartilage was debrided as well. I did an extensive debridement of the synovial tissue from rotator interval, around the biceps, posterior and inferior capsule. Identified the undersurface near complete fraying and tearing of the anterior supraspinatus tendon. Placed the arthroscope into the subacromial space. I did a subacromial decompression 4mm with high speed kings flat margins. Again removed some brown appearing tissue from the bursa and tissues around the rotator cuff tendons. There is near complete full-thickness tearing of the anterior 1 cm of the supraspinatus tendon. I ensured did not capture the biceps. I used accessory cannulas 7 x 7 Arthrex clear plastic cannulas as well as a passport cannula laterally. I used the Arthrex power pick instrument to trephinate multiple holes of the greater tuberosity for healing. I did a [id number] interval closure after assessing the mobility of the tear this is more of a medial to lateral based tear. I used FiberWire #2 suture in a [id number] simple stitch configuration for a closure type stitch and used an SMC sliding knot with multiple half hitches and cut the suture short to close the tear. I then passed Arthrex fiber tack all suture knotless anchors 1 just anterior and 1 just posterior to the tear more lateral compared to the [id number] suture. I then used the repair suture through the knotless mechanism on both sides to create a horizontal mattress trans tendon repair with 2 suture limbs. I then brought the suture limbs out laterally and secured these at the lateral aspect the greater tuberosity using a 4.75 Arthrex swivel lock bio composite suture anchor, to create a 'triangular' repair. Repair was found to be stable and solid final arthroscopy pictures taken and saved onto the system. Case terminated arthroscope withdrawn. Wounds thoroughly irrigated. Portal sites closed with 3-0 Monocryl suture. Clean wound cleaned with wet dry dressing followed application of Steri-Strips Adaptic 4 x 4 gauze ABD dressing cloth tape and a sling for the upper extremity. Patient woken up from a general anesthetic transferred off the operating table taken to postanesthetic care unit in stable condition all sponge needle instrument counts were correct no complications plan to the patient discharged home according to day surgery criteria follow-up in the office in 2 days time. CPT 39146, 60989, 96192 Surgical Findings: rotator cuff tear, possible pvns Ophthalmic Technician Apprentice surveillance sensor officer: Yes Fireworks Assembly Supervisor: russo Tasks completed by machinist first class: Retracting Additional dental office assistant?: No Complications Complications: No Admit VTE Documentation VTE Present on Admission: No VTE Mechan Device Prophylaxis: SCD's VTE Pharm Prophylaxis ordered?: No Reason prophylaxis not ordered: Treatment Not Indicated Procedures Musculoskeletal [id number]: Other Procedure See Report
--- NOTE | 2024-02-28 11:52 | DCINST_ITS ---
Discharge Instructions Diet Discharge Diet: No restrictions Activity Lifting Restrictions: no lifting over 1 pound, ok for pendulums Dressing / Incision Call your doctor if your incision/area has: Continuous Slow Oozing, Sudden Increased Bleeding, Increased Pain/ Swelling, Increased Redness, Foul Smelling Discharge and Swelling at the incision site Call your doctor if you observe: Fever of 101 or Higher, Coldness, Increased Pain and Numbness or Tingling Change Dressing in: leave in place till F/U Cleanse incision/area with: Do not get Incision Wet Follow Up Care Please Follow Up With: Renny Russell MD When: 2 days Test Results: Test results from this visit will be discussed in further detail at your follow- up appointment, if applicable. Discharge Plan Admission Attending Provider: Renny Russell Primary Care Provider: Luis A Vigil Instructions Print Language: Latvian Discharge Orders/Prescriptions Prescriptions: New oxycodone-acetaminophen [Endocet] 5-325 mg tablet 1 tab PO Q4H MDD 6 PRN (Reason: pain) 5 Days Qty: 30 0RF No Action multivitamin Tablet 1 tab PO DAILY aspirin [Adult Low Dose Aspirin] 81 mg tablet,delayed release (DR/EC) 81 mg PO DAILY cholecalciferol (vitamin D3) 25 mcg (1,000 unit) tablet 25 mcg PO DAILY wwcxumdd-nzp-tcympubhy-vit D3 1 EACH tablet 2 ea PO DAILY rosuvastatin 20 mg Tablet 20 mg PO DAILY omeprazole 40 mg capsule,delayed release(DR/EC) 40 mg PO DAILY PRN PRN (Reason: GERD) warfarin 4 mg tablet 6 mg PO DAILY Rx Instructions: 4 mg PO 1.5 tablets (6mg) daily: MANAGED BY DR. VIGIL; hydrochlorothiazide 25 mg tablet 25 mg PO DAILY Rx Instructions: TAKE 1/2 TABLET(12.5 MG) ORALLY DAILY acetaminophen [Acetaminophen Extra Strength] 500 mg tablet 500 mg PO Q6H PRN (Reason: pain) ramipril 10 mg capsule 10 mg PO BID Qty: 180 3RF amlodipine 5 mg tablet 5 mg PO DAILY Qty: 90 3RF carvedilol 3.125 mg tablet See Rx Instructions .ROUTE .COMPLEX Qty: 180 3RF Dose Instruction: TAKE 1 TABLET BY MOUTH TWICE A DAY Rx Instructions: TAKE 1 TABLET BY MOUTH TWICE A DAY Referrals / Follow Up: Schinner,Luis A E, MD [Primary Care Provider] - Renny Russell MD [Med Staff - Active Staff] - Disposition Disposition (needs filled in before D/C Order can be placed): Home, Self Care
--- NOTE | 2024-02-28 12:00 | PCM.POST.ANE ---
Anesthesia: Postop Eval I Current Vital Signs Temperature: 96.5 F Pulse Rate: 75 Blood Pressure: 157/82 Respiratory Rate: 16 Pulse Ox: 97 Oxygen Delivery Method: Room Air Assessment Airway patent: Yes Spontaneous unlabored respirations: Yes Mental status: Awake and Calm nausea: No Vomiting: No Anesthesia Complication: No Fluid Hydration Crystalloid volume administer (ml): 1,000 Total IV fluid infused: 1,000 Progress Note Anesthesia document: Postop Eval 1 completed: Yes
--- NOTE | 2024-02-28 12:45 | PCM.POSTANE2 ---
Anesthesia Postop Eval I Sum Postop Eval Completion status Anesthesia document: Postop Eval 1 completed: Yes Anesthesia Postop Eval I Summary Anesthesia Postop Eval I Summary: Anesthesia Postop Eval I: Assessment Summary Airway patent Yes 02/28/24 12:01 Spontaneous unlabored Yes 02/28/24 12:01 respirations Mental status Awake,Calm 02/28/24 12:01 nausea No 02/28/24 12:01 Vomiting No 02/28/24 12:01 Anesthesia Postop Eval I: Fluid Summary Crystalloid volume administer 1,000 02/28/24 12:01 (ml) Colloids volume administered ( ml) Blood Product volume administered (ml) Total IV fluid infused 1,000 02/28/24 12:01 Anesthesia Postop Eval I: Summary Notes Anesthesia Complication No 02/28/24 12:01 Anesthesia Complication Comment: Post-operative progress note Anesthesia: Postop Eval II Evaluation Mental status: Awake Pain Level: 0 nausea: No Vomiting: No
== END 2024-02-28 14:07 | disposition home or self-care (01) ==
LOC: SDC 08:18 → AC 08:20
PROVIDERS: PCP Family Medicine; Referring Provider Orthopaedic Surgery Sports Medicine; Visit Provider Orthopaedic Surgery Sports Medicine
PROC: (CPT 29805; principal; 2024-02-28 09:45)
DX: M75.111 Incomplete rotator cuff tear or rupture of right shoulder, not specified as traumatic (principal); M75.81 Other shoulder lesions, right shoulder; M19.011 Primary osteoarthritis, right shoulder; M24.011 Loose body in right shoulder; I10 Essential (primary) hypertension; K21.9 Gastro-esophageal reflux disease without esophagitis; E78.00 Pure hypercholesterolemia, unspecified; M47.22 Other spondylosis with radiculopathy, cervical region; Z85.43 Personal history of malignant neoplasm of ovary; Z79.82 Long term (current) use of aspirin; Z79.01 Long term (current) use of anticoagulants; Z86.711 Personal history of pulmonary embolism; Z95.828 Presence of other vascular implants and grafts; Z85.828 Personal history of other malignant neoplasm of skin; Z86.718 Personal history of other venous thrombosis and embolism; Z79.899 Other long term (current) drug therapy
CPT/HCPCS: 29827; 29826; 29823; 01630; 64415; J7120; 36416; 85610; 88305; 88312; C1713

== ENCOUNTER → 2024-07-26 | Outpatient (CLI) | payer MEDICARE, SELFPAY ==
[2024-07-26 08:44] LABS: Bacteria 0 SEEN /hpf (None Seen); Mucous, Urine 0 SEEN /hpf (<or=2+)
[2024-07-26 10:03] LABS: Absolute Lymphocyte Count 1.25 X10^3/uL (0.83-4.51); Absolute Neutrophil Count 1.9 X10^3/uL (2.0-7.7); Basophil# 0.03 X10^3/uL; Basophil% 0.8 % (0-1); Eosinophil# 0.18 X10^3/uL; Eosinophils% 4.9 % (0-5); Hematocrit 40.7 % (37-47); Hemoglobin 14.4 g/dL (12.0-15.0); Lymphocyte # 1.25 X10^3/ul (0.83-4.51); Lymphocyte % 33.8 % (19-41); Mean Corp Hgb Conc 35.4 g/dL (32-36); Mean Corpuscular Hgb 31.2 pg (27.0-32.0); Mean Corpuscular Volume 88.1 fL (81-99); Mean Platelet Vol. 10.4 fl (6.2-12.0); Monocyte# 0.35 X10^3/uL; Monocyte% 9.5 % (0-10); NRBC Flagged by Analyzer 0 % (0-5); Neutrophil # 1.88 X10^3/uL (2.7-7.7); Neutrophil % 50.7 % (47-70); Platelet Count 239 K/mm3 (150-450); RBC Distribution Width CV 13.5 % (11.6-14.6); RBC Distribution Width SD 43.8 fl (35.1-43.9); Red Blood Count 4.62 M/mm3 (4.2-5.4); White Blood Count 3.7 K/mm3 (4.4-11.0)
[2024-07-26 10:32] LABS: ALB/GLOB Ratio 1.6 RATIO (0.9-2.4); AST(SGOT) 24 U/L (<=31); Alanine Aminotransfer ALT/SGPT 19 U/L (<=34); Albumin, Serum 4.4 g/dL (3.4-4.8); Alkaline Phosphatase 64 U/L (35-104); Anion Gap 12 (5-15); BUN 18 mg/dL (4-19); BUN/Creat Ratio 23.2 RATIO (10-20); Calcium,Total 10.1 mg/dL (7.6-11.0); Carbon Dioxide 25.6 mmol/L (21.0-32.0); Chloride 103 mmol/L (98-108); Cholesterol 157 mg/dL (<=200); Creatinine, Serum 0.76 mg/dL (0.70-1.20); EST Glomerular Filtration Rate 82 (>60); Globulin 2.7 g/dL (2.2-4.2); Glucose 106 mg/dL (70-99); High Density Lipoprotein 52 mg/dL; Low Density Lipoprotein Calc. 79 mg/dL; Magnesium 1.9 mg/dL (1.5-2.2); Potassium 3.6 mmol/L (3.3-5.1); Protein, Total 7.2 g/dL (5.9-8.4); Sodium Level 140 mmol/L (133-145); Total Bilirubin 0.42 mg/dL (0.00-1.30); Triglycerides 132 mg/dL; Very Low Density Lipoprotein 26 mg/dL (5-40); cholesterol:hdl ratio screen 3.03
[2024-07-26 10:59] LABS: Hemoglobin A1c 5.9 % (<=5.6)
[2024-07-26 14:49] LABS: Color, Urine Yellow (Yellow); Glucose, Dipstick Normal (Normal); Ketone-Dipstick Negative (Negative); Leukocyte Esterase-Dipstick Negative /ul (Negative); Nitrite-Dipstick Negative (Negative); Occult Blood-Urine 10 /ul (Negative); Protein-Dipstick 15 mg/dl (Negative); Urine Bilirubin Dipstick Negative (Negative); Urine Clarity Clear (Clear); Urine Urobilinogen Normal (Normal)
[2024-07-26 16:01] LABS: Red Blood Cells-Urine 5-10 SEEN /hpf (0-5); Squamous Epithelial Cells - UA 0-5 SEEN /hpf (5-10); White Blood Cells 0-5 SEEN /hpf (0-5)
[2024-07-26 16:02] LABS: Fine Granular Cast- Urine 0-5 SEEN /lpf (0-5); Hyaline Cast 0-5 SEEN /lpf (0-5)
== END | disposition home or self-care (01) ==
LOC: MTLAB 08:32
PROVIDERS: PCP Family Medicine; Referring Provider Family Medicine; Visit Provider Family Medicine
DX: I10 Essential (primary) hypertension (principal); R73.02 Impaired glucose tolerance (oral)
CPT/HCPCS: 36415; 80053; 80061; 81001; 83036; 83735; 84443; 85025

== ENCOUNTER → 2024-08-14 | Outpatient (CLI) | payer MEDICARE, SELFPAY ==
[2024-08-14 11:29] LABS: Bacteria 0 SEEN /hpf (None Seen); Mucous, Urine 0 SEEN /hpf (<or=2+); Red Blood Cells-Urine 0 SEEN /hpf (0-5); Squamous Epithelial Cells - UA 0 SEEN /hpf (5-10); White Blood Cells 0 SEEN /hpf (0-5)
[2024-08-14 13:16] LABS: Color, Urine Yellow (Yellow); Glucose, Dipstick Normal (Normal); Ketone-Dipstick Negative (Negative); Leukocyte Esterase-Dipstick 25 /ul (Negative); Nitrite-Dipstick Negative (Negative); Occult Blood-Urine 10 /ul (Negative); Protein-Dipstick 15 mg/dl (Negative); Urine Bilirubin Dipstick Negative (Negative); Urine Clarity Clear (Clear); Urine Urobilinogen Normal (Normal)
== END | disposition home or self-care (01) ==
LOC: LABSPEC 11:27
PROVIDERS: PCP Family Medicine; Referring Provider Family Medicine; Visit Provider Family Medicine
DX: I10 Essential (primary) hypertension (principal); R31.9 Hematuria, unspecified
CPT/HCPCS: 81001; 87086; 87088

== ENCOUNTER → 2024-09-03 | Outpatient (CLI) | payer MEDICARE, SELFPAY ==
--- NOTE | 2024-09-03 09:45 | CDU_ITS ---
Reason For Study Reason For Study: Carotid Stenosis Rt. Velocities/BP Lt. Velocities/BP Prox CCA 104/17 cm/sec. Prox CCA 106/18 cm/sec. Mid CCA 71/17 cm/sec. Mid CCA 86/15 cm/sec. Dist CCA 78/21 cm/sec. Dist CCA 65/17 cm/sec. Prox ICA 131/25 cm/sec. Prox ICA 72/15 cm/sec. Mid ICA 99/28 cm/sec. Mid ICA 110/30 cm/sec. Dist ICA 88/22 cm/sec. Dist ICA 116/34 cm/sec. Rt. ICA/CCA = 1.85. Lt. ICA/CCA = 1.3. Prox ECA 78/10 cm/sec. Prox ECA 85/11 cm/sec. Rt. Vert. 37/5 cm/sec. Lt. Vert. 42/12 cm/sec. Right Extracranial There is intimal thickening but no significant atherosclerotic plaque noted in the right common carotid artery. There is intimal thickening but no significant atherosclerotic plaque noted in the right internal carotid artery. There is heterogeneous, smooth atherosclerotic plaque noted in the right external carotid artery. Antegrade flow is noted in the right vertebral artery. Left Extracranial There is intimal thickening but no significant atherosclerotic plaque noted in the left common carotid artery. There is intimal thickening but no significant atherosclerotic plaque noted in the left internal carotid artery. There is intimal thickening but no significant atherosclerotic plaque noted in the left external carotid artery. Antegrade flow is noted in the left vertebral artery. Procedure Carotid Duplex 36114. This is a Carotid Duplex examination using B-mode, color flow and specral Doppler. Exam performed in department. VL/Carotid Duplex Ultrasound Interpretation Summary Normal right extracranial internal carotid. Normal left extracranial internal carotid. Patent and antegrade vertebrals bilaterally. Ordering Physician: Luis A Vigil Referring Physician: Luis A Vigil Performed By: Jeri Segovia, JAMEY, RVT
== END | disposition home or self-care (01) ==
LOC: CVS 09:44
PROVIDERS: PCP Family Medicine; Referring Provider Family Medicine; Visit Provider Family Medicine
DX: I65.21 Occlusion and stenosis of right carotid artery (principal)
CPT/HCPCS: 93880

== ENCOUNTER → 2025-02-12 | Outpatient (CLI) | payer MEDICARE, SELFPAY ==
--- NOTE | 2025-02-12 10:21 | BI_ITS ---
EXAM: SCRN MAMM (CAD)W/GANESH BILAT DATE: 02/12/2025 CLINICAL HISTORY: F, Age 74 y/o , SCREENING No family history. Personal history of ovarian carcinoma. TECHNIQUE: Procedure Code: [id number] Modality: MG Procedure: SCRN MAMM (CAD)W/GANESH BILAT COMPARISON: Prior exam(s) dated June 16, 2022.. FINDINGS: TISSUE DENSITY: The breasts are heterogeneously dense, which may obscure small masses. Bilateral Breast Mammographic Findings: No significant masses, calcifications or other abnormalities are identified. No suspicious masses, areas of developing architectural distortion, or suspicious calcifications. There has been no significant interval change. BI/SCRN MAMM (CAD)W/GANESH BILAT IMPRESSION: Stable bilateral screening mammogram. OVERALL FINAL ASSESSMENT BI-RADS 1: NEGATIVE. RECOMMENDATION: Routine annual follow-up in 1 Year Additional Recommendation none A letter with findings and recommendations will be mailed to the patient. Reading Location: [facility]
== END | disposition home or self-care (01) ==
PROVIDERS: PCP Family Medicine; Referring Provider Nurse Practitioner Family; Visit Provider Nurse Practitioner Family
DX: Z12.31 Encounter for screening mammogram for malignant neoplasm of breast (principal)
CPT/HCPCS: 77063; 77067

== ENCOUNTER → 2025-03-11 | Outpatient (CLI) | payer MEDICARE, SELFPAY ==
[2025-03-11 09:14] LABS: Mucous, Urine 0 SEEN /hpf (<or=2+)
[2025-03-11 10:07] LABS: Hematocrit 45.1 % (37-47); Hemoglobin 15.4 g/dL (12.0-15.0); Immature Granulocytes Count 0.000 X10^3/uL (0.0-0.0); Mean Corp Hgb Conc 34.1 g/dL (32-36); Mean Corpuscular Volume 90.6 fL (81-99); Mean Platelet Vol. 10.6 fl (6.2-12.0); NRBC Flagged by Analyzer 0 % (0-5); Platelet Count 262 K/mm3 (150-450); RBC Distribution Width CV 13.2 % (11.6-14.6); RBC Distribution Width SD 44.1 fl (35.1-43.9); Red Blood Count 4.98 M/mm3 (4.2-5.4); White Blood Count 4.4 K/mm3 (4.4-11.0)
[2025-03-11 10:20] LABS: Color, Urine Yellow (Yellow); Glucose, Dipstick Normal (Normal); Ketone-Dipstick Negative (Negative); Leukocyte Esterase-Dipstick 25 /ul (Negative); Nitrite-Dipstick Negative (Negative); Occult Blood-Urine 25 /ul (Negative); Protein-Dipstick 15 mg/dl (Negative); Specific Gravity, Urine 1.010 (1.002-1.030); Urine Bilirubin Dipstick Negative (Negative)
[2025-03-11 10:27] LABS: Red Blood Cells-Urine 0-5 SEEN /hpf (0-5); Squamous Epithelial Cells - UA 0-5 SEEN /hpf (5-10)
[2025-03-11 13:17] LABS: AST(SGOT) 26 U/L (<=31); Alanine Aminotransfer ALT/SGPT 22 U/L (<=34); Albumin, Serum 4.6 g/dL (3.4-4.8); Alkaline Phosphatase 58 U/L (35-104); Anion Gap 11 (5-15); BUN 18 mg/dL (4-19); BUN/Creat Ratio 21.7 RATIO (10-20); Calcium,Total 10.3 mg/dL (7.6-11.0); Carbon Dioxide 27.9 mmol/L (21.0-32.0); Chloride 102 mmol/L (98-108); Cholesterol 175 mg/dL (<=200); Globulin 3.1 g/dL (2.2-4.2); Glucose 112 mg/dL (70-99); Low Density Lipoprotein Calc. 89 mg/dL; Magnesium 2.1 mg/dL (1.5-2.2); Potassium 3.8 mmol/L (3.3-5.1); Triglycerides 182 mg/dL; Very Low Density Lipoprotein 36 mg/dL (5-40); Vitamin D,25 Hydroxy 57.2 ng/mL (30-100); cholesterol:hdl ratio screen 3.15
== END | disposition home or self-care (01) ==
LOC: MTLAB 09:09
PROVIDERS: PCP Family Medicine; Referring Provider Family Medicine; Visit Provider Family Medicine
DX: I10 Essential (primary) hypertension (principal); R73.02 Impaired glucose tolerance (oral); E78.00 Pure hypercholesterolemia, unspecified
CPT/HCPCS: 36415; 80053; 80061; 81001; 82306; 83036; 83735; 84443; 85025